=== PATIENT | male | born 1950 | race Caucasian/White ===

== ENCOUNTER 2022-06-08 05:23 | Observation (INO) ==
--- NOTE | 2022-05-22 13:50 | PAT Medication Instructions ---
Medication Instructions Date of Service May 22, 2022 Home Medications levothyroxine 25 mcg tablet (Euthyrox) 25 mcg PO QAM lisinopril 5 mg tablet 5 mg PO QAM metformin 500 mg tablet 1,000 mg PO BID omeprazole 40 mg capsule,delayed release 40 mg PO QAM rosuvastatin 20 mg tablet 20 mg PO HS sitagliptin 50 mg tablet (Januvia) 50 mg PO QAM DO NOT take the morning of surgery lisinopril 5 mg tablet 5 mg PO QAM metformin 500 mg tablet 1,000 mg PO BID sitagliptin 50 mg tablet (Januvia) 50 mg PO QAM Take morning of surgery With a small sip of water, OTHERWISE NOTHING TO EAT OR DRINK AFTER MIDNIGHT: levothyroxine 25 mcg tablet (Euthyrox) 25 mcg PO QAM omeprazole 40 mg capsule,delayed release 40 mg PO QAM Take evening before surgery metformin 500 mg tablet 1,000 mg PO BID rosuvastatin 20 mg tablet 20 mg PO HS Other Notes If you have any questions please call us at [phone] or [phone] or [phone] or [phone]
--- NOTE | 2022-05-24 09:05 | Anesthesiology Consultation ---
Date of Service May 24, 2022 Assessment & Plan (1) Encounter for pre-operative examination: - COVID screening: Per assessment on 05/24: No known COVID-19 positive contacts ( tested positive approximately 05/03- home test) or current COVID-19 related symptoms. Patient did not develop any symptoms during 's quarantine or since. Patient vaccinated. Travel screen negative. Given patient's household member having Covid 04/2022, preop Covid test done 05/26 at [facility]- negative. At surgeon discretion if further preop Covid testing being done. - Check BSG AM DOS - Outpatient joint assessment: Pt currently scheduled for inpatient pathway. If surgeon requests review for outpatient joint pathway, patient is acceptable candidate for outpatient joint program from anesthesia standpoint pending surgeo n's office assessment of pt motivation/ensuring strong home support/completion of same day joint program preop requirements. Chart Review Chart Review: Acceptable Risk for Surgery and Patient seen in Pre Admission Testing Teaching & Discussion Pre-Anesthesia Teaching/Discussion Notes: Instructed NPO after midnight before surgery,except medications with 15 cc of water. Medication instructions provided according to the PAT guidelines. History Surgery Operation Date: 06/08/22 07:00 Proposed Procedures p Left Total Hip Arthroplasty - Adriano Delgado MD Height/Weight Height: 5 ft 10 in Weight: 81.6 kg Allergies Allergy/AdvReac Type Severity Reaction Status Date / Time atorvastatin [From Lipitor] AdvReac Muscle Pain Verified 05/18/22 16:35 Medications Home Medications Medication Instructions Recorded Confirmed Last Taken levothyroxine 25 mcg tablet 25 mcg PO QAM 05/18/22 05/18/22 Unknown (Euthyrox) lisinopril 5 mg tablet 5 mg PO QAM 05/18/22 05/18/22 Unknown metformin 500 mg tablet 1,000 mg PO BID 05/18/22 05/18/22 Unknown omeprazole 40 mg capsule,delayed 40 mg PO QAM 05/18/22 05/18/22 Unknown release rosuvastatin 20 mg tablet 20 mg PO HS 05/18/22 05/18/22 Unknown sitagliptin 50 mg tablet (Januvia) 50 mg PO QAM 05/18/22 05/18/22 Unknown Past Medical History Medical History DM type 2 (diabetes mellitus, type 2) GERD (gastroesophageal reflux disease) History of prostate cancer Dx 2019 - s/p radiation History of rheumatic fever as a child HLD (hyperlipidemia) [place] (hard of hearing) HTN (hypertension) Hypothyroidism Osteoarthritis Exercise / Class Metabolic Activity II 4-5 Yardwork/Stairs/Walk up hill (one FS (no CP, no SOB)) Past Family History Family History Other No family history of adverse response to anesthesia Past Surgical History Surgical History History of cholecystectomy History of colonoscopy History of prostate biopsy History of shoulder surgery Rt History of tonsillectomy Past Anesthesia History No Hx of Anesthesia Complications and No Family Hx of Anesthesia Complications History of PONV No Hx of PONV and No Hx of Motion Sickness Social History Smoking Status: Never smoker Do You Dip or Chew Tobacco: No (quit years ago) Hx Alcohol Use: No Hx Substance Use: No substance use type: does not use Review of Systems Patient denies chest pain, shortness of breath, dyspnea on exertion, fever, chills, cough, wheezing, palpitations. Physical Exam Vital Signs VITALS BP 133/76 P 58 TEMP 98.4 SP02 98%RA RESP 16 PHYSICAL Full cervical extension range of motion. Full TMJ range of motion. TMD 3.5 finger breaths Mallampati Score 3 Dentition: bottom partial Lungs: clear throughout to auscultation Cardiac: regular rate and rhythm, no murmurs noted Spine: normal Carotid arteries: negative bruit Extremities: no edema Lab Results Anesthesia Preop Results Results Anesthesia Widget: WBC 5.73 K/ul (4.8-10.8) 05/24/22 Hgb 12.4 g/dl (14.0-18.0) L 05/24/22 Hct 37.3 % (40.1-51.0) L 05/24/22 Plt 245 K/uL (130-400) 05/24/22 Na 141 mmol/L (136-145) 05/24/22 K 4.2 mmol/L (3.5-5.1) 05/24/22 Cl 107 mmol/L (98-107) 05/24/22 CO2 29 mmol/L (21-32) 05/24/22 BUN 22 mg/dl (6-23) 05/24/22 Creat 1.20 mg/dl (0.6-1.4) 05/24/22 Glucose Level 147 mg/dl (70-99(Fasting)) H 05/24/22 PT 10.7 Seconds (9.0-12.0) 05/24/22 PTT 24.5 Seconds (21.0-31.0) 05/24/22 INR 1.0 (0.9-1.1) 05/24/22 Urine Color Yellow 05/24/22 Urine Appearance Clear (Clear) 05/24/22 Urine pH 5.0 (4.5-7.5) 05/24/22 Urine Specific [place] 1.024 (1.000-1.030) 05/24/22 Urine Protein Negative (Negative) 05/24/22 Urine Glucose (UA) 2+ (Negative) H 05/24/22 Urine Ketones Negative (Negative) 05/24/22 Urine Blood Negative (Negative) 05/24/22 Urine Nitrite Negative (Negative) 05/24/22 Urine Bilirubin Negative (Negative) 05/24/22 Urine Urobilinogen Negative (Negative) 05/24/22 Urine Leukocyte Esterase Negative (Negative) 05/24/22 Blood Type A Positive 05/24/22 Antibody Screen NEGATIVE 05/24/22 Testing Laboratory Results 04/24/22 HGBA1C 6.5% Electrocardiogram Date: 05/17/22 Findings: + SB @ (55) Chest X-Ray Date: 05/17/22 Findings: + NAD COVID-19 Risk Screen Screening Information COVID-19 Screen Date: 05/24/22 Exposure 21 Days Family/Household +COVID Last 21 Days: Yes Exposure 10 Days Any COVID Exposure Last 10 Days: No Symptoms Last 10 Days Experienced COVID Sx Last 10 Days: No + COVID 0-90 Days COVID + in Last 0-90 Days: No
--- NOTE | 2022-05-24 15:58 | History & Physical Report ---
Date of Service May 24, 2022 Assessment & Plan (1) Osteoarthritis of left hip: Plan: PRE-OP Diagnosis: Left hip osteoarthritis Planned Procedure: Left total hip arthroplasty Plan: Patient is scheduled to undergo this procedure at the [facility] with a 23-hour observation admission with Dr. Delgado on May. Risks and complications of the procedure such as: Infection, bleeding, pain, scarring, nerve blood vessel damage, weakness, wound problems, stiffness, incomplete relief of symptoms, hardware failure, hardware loosening, wear, fracture, tendon or ligament injury, dislocation, leg length inequality, blood clots, Embolism, heart attack, stroke and were explained to the patient at her visit today. Informed consent to perform the procedure was obtained. Patient also understands risks of proceeding with surgical intervention during the COVID-19 pandemic. Currently patient is asymptomatic. Patient has not been in contact with anyone positive for the virus so preoperative testing is not indicated. Patient has an appointment to meet with anesthesia later this morning and while there will obtain CBC with differential, complete metabolic panel, PT/INR, blood type and screen, urinalysis, urine cultu re and sensitivity, hemoglobin A1c and a nasal culture for MRSA. He has already met with his primary care provider Dr. Pryor and received clearance to proceed with surgery. His EKG and chest x-ray are both up-to-date. Patient states that he plans on doing in-home physical therapy for the first 1 to 2 weeks postoperatively with [facility]. Patient states that he will most likely elect to do outpatient physical therapy at [facility] physical therapy in [place]. Patient will need a walker, raised toilet seat, shower chair and a hip kit. During today's visit we reviewed the total hip packet as well as precautions. We discussed discharge planning from the hospital. I provided paperwork to obtain a handicap placard for their vehicle. We discussed lectures offered by [facility] in regards to joint replacement surgery via Zoom. I advised the patient that upon discharge from hospital we will prescribe a narcotic pain medication and anti-inflammatory. Patient will also be on an 81 mg aspirin twice daily for blood clot prevention. Patient will be scheduled for 2-week postoperative follow-up visit with myself on June 21 at 9:30 AM. At that visit we will Provide the patient with an order for outpatient physical therapy and rehab protocol. Patient verbalizes understanding of all information provided during today's visit. He thanks for the care that he received. If he has questions or concerns that should arise prior to his surgery, he will contact clinic. This chart was completed utilizing [employer] voice recognition software. Grammatical errors, random word insertions, pronoun errors, and in complete sentences are an occasional consequence of the system. Any questions or concerns about the content, text, or information contained within the body of this dictation should be addressed directly to the physician for clarification. History of Present Illness Chief Complaint: Chief Complaint: Left hip pain Primary Care Provider: Lance May DO History of Present Illness (including history relevant to procedure): This 71-year-old male presents the clinic today for his preoperative history and physical. Patient complains of approximately a 2 to 3-year history of persistent left hip pain that began insidiously. He states that recently he is requiring the use of a walking stick when he is outside ambulating. He notices that it is affecting his gait considerably. Patient states that the pain is localized in his groin and posterior lateral aspect of his hip. Patient states that he finds it very difficult to partake in activities that he enjoys especially hunting. He states that he initially discussed the surgery with Dr. Delgado back in October but was not able to undergo the procedure due to an elevated hemoglobin A1c that was greater than 10. He states that since that time he has been on a diet and saw his PCP who prescribed him metformin and Januvia. He is now down to 6. Review Of Systems: A 12 point review of systems is performed is unremarkable except for those things stated in the HPI and past medical history. Past Medical History: Problems: Disorder of thyroid Dry skin Loss of hearing Arthritis Irregular heart beat Prostate cancer Type 2 diabetes mellitus Hypertension History of renal calculi BPH Procedure History Procedure Procedure Date Comments Shoulder joint operations Unknown Allergies and Sensitivities: NKA Social history: Completely unremarkable Family history: Cancer, COPD, aneurysm, heart disease and diabetes Current Home Meds: (Last Updated 05/24 08:05) SITagliptin (Januvia 50 mg oral tablet) TAKE 1 TABLET BY MOUTH ONCE DAILY levothyroxine (Euthyrox 25 mcg (0.025 mg) oral tablet) TAKE 1 TABLET BY MOUTH ONCE DAILY ON AN EMPTY STOMACH lisinopril (lisinopril 5 mg oral tablet) TAKE 1 TABLET BY MOUTH ONCE DAILY metFORMIN (MetFORMIN (Eqv-Glucophage XR) 500 mg oral tablet, extended release) TAKE 4 TABLETS BY MOUTH ONCE DAILY omeprazole (omeprazole 40 mg oral delayed release capsule) 40 mg PO Daily rosuvastatin (rosuvastatin 20 mg oral tablet) 20 mg PO Daily Allergies Allergy/AdvReac Type Severity Reaction Status Date / Time atorvastatin [From Lipitor] AdvReac Muscle Pain Verified 05/18/22 16:35 Home Medications Medication Instructions Recorded Confirmed Type levothyroxine 25 mcg tablet 25 mcg PO QAM 05/18/22 05/18/22 History (Euthyrox) lisinopril 5 mg tablet 5 mg PO QAM 05/18/22 05/18/22 History metformin 500 mg tablet 1,000 mg PO BID 05/18/22 05/18/22 History omeprazole 40 mg capsule,delayed 40 mg PO QAM 05/18/22 05/18/22 History release rosuvastatin 20 mg tablet 20 mg PO HS 05/18/22 05/18/22 History sitagliptin 50 mg tablet (Januvia) 50 mg PO QAM 05/18/22 05/18/22 History Past Med/Surg History Medical History DM type 2 (diabetes mellitus, type 2) GERD (gastroesophageal reflux disease) History of prostate cancer Dx 2019 - s/p radiation History of rheumatic fever as a child HLD (hyperlipidemia) [place] (hard of hearing) HTN (hypertension) Hypothyroidism Osteoarthritis Surgical History History of cholecystectomy History of colonoscopy History of prostate biopsy History of shoulder surgery Rt History of tonsillectomy Family History Other No family history of adverse response to anesthesia Social History Smoking Status: Never smoker Second Hand Exposure: No; Hx Alcohol Use: No Hx Substance Use: No Preferred Language: [place] Citizen Communication Ability: Effective Rn Discharge Required: No Beliefs That Will Affect Care: None Current Living Situation: Spouse Feels Safe at Home: Yes Assistive Devices: Glasses Review of Systems All systems reviewed & are unremarkable except as noted in Subjective Physical Exam Physical Exam: Physical Exam: (relevant to the procedure, including heart and lung evaluation) General: Alert and oriented x3 appropriate grooming and hygiene Eyes: Pupils are equal and reactive to light with accommodation. Extraocular lids are intact Throat: Deferred due to COVID-19 precautions Cardiac: Regular rate with irregular rhythm with no murmurs or gallops appreciated Lungs: Clear to auscultation throughout with no wheezing, rales or rhonchi Abdomen: Nonobese, nondistended, nontender with NABS Extremities: Left hip: Passive flexion is limited to 115 degrees with referred pain to the groin. Internal rotation is limited to 5 degrees and external rotation to 30 degrees. Stinchfield test and straight leg raise test were positive. Logroll test is negative patient does have some referred pain to the groin area with active AB and Adduction of the lower extremity. Patient is neurovascularly intact in the left lower extremity but does walk with a slight antalgic gait. Neuro: Cranial nerves II through XII are intact no motor or sensory deficit Skin: Normal appearance no open skin areas or discharge Results & Data ([facility]) Diagnostic Findings Studies (relevant to the procedure): X-rays done recently at outside facility are reviewed. These show [id number] arthritis in the right hip with subchondral cyst formation and sclerosis and marginal osteophytes. Code Status & VTE Plan VTE Prophylaxis Plan VTE Prophylaxis will be ordered: Yes
[2022-06-08] MEDS ORDERED: TRANEXAMIC ACID 1,000 MG **IV Intra-op IV SCH (06:00)
[2022-06-08] MEDS ORDERED: ROPIVACAINE 0.5% HCL/PF 150 MG, BUPIVACAINE 0.75% MPF 20 ML, EPINEPHrine 0.15 MG, Ketor... INFIL SCH (06:00)
[2022-06-08] MEDS ORDERED: FAMOTIDINE 20 MG TAB PO SCH (06:00)
[2022-06-08] MEDS ORDERED: LR 500ML BOLUS, THEN 15ML/HR IV SCH (06:00)
[2022-06-08] MEDS ORDERED: ceFAZolin 2000MG 2,000 MG/15 ML SYR IV SCH (06:00)
[2022-06-08] MEDS ORDERED: Scopolamine 1 MG TDSY TD SCH (06:00)
[2022-06-08] MEDS ORDERED: traMADol HCL 50 MG TABLET PO SCH (06:00)
[2022-06-08] MEDS ORDERED: CeleBREX 200 MG CAP PO SCH (06:00)
[2022-06-08] MEDS ORDERED: TRANEXAMIC ACID 1,000 MG **IV Pre-op IV SCH (06:00)
[2022-06-08] MEDS: ACETAMINOPHEN 500 MG TAB PO SCH ×4 (06:22→22:30)
[2022-06-08] MEDS ORDERED: BUPIVACAINE 0.5 % 5 MG/1 ML PF 10ML VIAL ONE (06:30)
[2022-06-08] MEDS ORDERED: ORTHO JOINT ANESTHETIC ONE (06:32)
--- NOTE | 2022-06-08 06:44 | History & Physical Bridge Note ---
Date of Service June 08, 2022 History & Physical Bridge Note I have examined the patient, reviewed the History & Physical and in the interval since the performance of the History & Physical I have noted the following changes of clinical significance: no changes noted
[2022-06-08] MEDS ORDERED: PROPOFOL IV EMULSION 10 MG/ML 20 ML VIAL IV ONE (06:45)
[2022-06-08] MEDS ORDERED: MIDAZOLAM HCL 1 MG/ML 2ML VIAL ONE (06:45)
[2022-06-08] MEDS ORDERED: fentaNYL citrate 100 MCG/2 ML VIAL ONE (07:01)
[2022-06-08] MEDS ORDERED: HYDROmorphone INJ 2 MG/ML SYR/VIAL IV PRN (07:17)
[2022-06-08] MEDS ORDERED: fentaNYL citrate 100 MCG/2 ML VIAL IV PRN (07:17)
[2022-06-08] MEDS ORDERED: ePHEDrine sulfate 50 MG/ML AMP IV PRN (07:17)
[2022-06-08] MEDS ORDERED: ATROPINE SULFATE 0.1 MG/ML 10ML SYR IV PRN (07:17)
[2022-06-08] MEDS ORDERED: ONDANSETRON INJ 2 MG/ML 2 ML VIAL ONE (07:32)
[2022-06-08] MEDS ORDERED: ePHEDrine sulfate 50 MG/ML SYR ONE (07:43)
[2022-06-08] MEDS ORDERED: MAGNESIUM HYDROXIDE SUSP 30 ML UDC PO PRN (08:33)
[2022-06-08] MEDS ORDERED: oxyCODONE HCL IR 5 MG TAB (IMMEDIATE RELEASE) PO PRN (08:33)
[2022-06-08] MEDS ORDERED: ONDANSETRON INJ 2 MG/ML 2 ML VIAL IV PRN (08:33)
[2022-06-08] MEDS ORDERED: TAMSULOSIN HCL 0.4 MG CAP PO PRN (08:33)
[2022-06-08] MEDS ORDERED: NALOXONE HCL 0.4 MG/1 ML VIAL/CARP IV PRN (08:33)
[2022-06-08] MEDS ORDERED: ALUMINUM/MAGNESIUM SUSP 30 ML UDC PO PRN (08:33)
[2022-06-08] MEDS ORDERED: METOCLOPRAMIDE HCL INJ 5 MG/ML 2 ML VIAL IV PRN (08:33)
[2022-06-08] MEDS ORDERED: bisacodyL 10 MG SUPP PR PRN (08:33)
[2022-06-08] MEDS ORDERED: diphenhydrAMINE 50 MG/ML VIAL IV PRN (08:33)
--- NOTE | 2022-06-08 08:33 | Operative Report ---
Post Operative Report Pre & Post Diagnosis Operation Date: 06/08/22 07:00 Pre-Op Diagnosis: Left Hip Osteoarthritis Post-Op Diagnosis: Left Hip Osteoarthritis I identified the patient and participated in the time-out.: Yes Procedure Operation Date: 06/08/22 07:00 Actual Procedures p Left Total Hip Arthroplasty, Uncemented(Left) - Adriano Delgado MD Surgeon Adriano Delgado MD Command Post Craftsman Marlyn Reeves PASilas Estimated Blood Loss 100 Findings Consistent with Post-Op Diagnosis Specimens femoral head Description of Procedure I was present during then entire case assisting with positioning, prepping, draping, wound retraction, wound closure, dressing and abduction pillow placement. No fellow present. Please see Dr. Delgado procedure note for specifics of the case. I attest to the content of the Intraoperative Record and any orders documented therein. Any exceptions are noted below.
--- NOTE | 2022-06-08 08:35 | Operative Report ---
Post Operative Report Pre & Post Diagnosis Operation Date: 06/08/22 07:00 Pre-Op Diagnosis: Left Hip Osteoarthritis Post-Op Diagnosis: Left Hip Osteoarthritis I identified the patient and participated in the time-out.: Yes Procedure Operation Date: 06/08/22 07:00 Actual Procedures p Left Total Hip Arthroplasty, Uncemented(Left) - Adriano Delgado MD Surgeon Adriano Delgado MD Distribution Superintendent ROSALIO Reeves PA-C. No resident or fellow was available to assist. Estimated Blood Loss 100 Findings Consistent with Post-Op Diagnosis Fluids 700 cc Specimens Left femoral head Anesthesia Type Spinal MAC Complications none Disposition Disposition: Recovery Room Indications 71-year-old gentleman with left hip osteoarthritis refractory to conservative management. X-rays demonstrate [id number] disease. I had a long discussion with him about the risks and benefits of surgery, alternatives, and expected outcomes. After reviewing all these he elected to proceed with surgery. All questions were answered. Informed consent was signed. Description of Procedure Patient was identified in the preoperative holding area and the surgical site, left hip, was marked. A spinal anesthetic was placed, then the patient was brought back to the main operating room, placed in the operating table and moved into the lateral decubitus position. Axillary roll was placed. All bony prominences were padded. Perioperative antibiotics and tranexamic acid 1 gram IV were administered. Operative extremity was prepped and draped in the normal sterile fashion. Prior to incision a multidisciplinary timeout was called. All in the room were in agreement. We began by making an incision for a posterior approach to the hip. We dissected down through subcutaneous tissues to the level of the fascia. The fascia was incised in line with the incision. Charnley bow was placed. The trochanteric bursa was excised. The piriformis and short external rotators were dissected off the posterior aspect of the hip. A box cut was made in the capsule. The femoral head was dislocated. The femoral neck cut was made at our preoperative template. The acetabulum was then exposed. The labrum was sharply excised. Contents of the cotyloid fossa were removed with electrocautery. We then began reaming at a size 8 mm less than our preoperative template. We reamed up by [address] way up to a size 56 mm cup. This gave us good bleeding cancellus bone circumferentially. The acetabulum was then irrigated out and dried. The real [place] Gription cup was then impacted down into position with 45 degrees of lateral opening and 25 degrees of anteversion. A single cancellous bone screw was placed up into the ilium. Excellent fixation was obtained. A trial liner for a 36 mm femoral head was then placed. Next we turned our attention to the femur. The lateral neck was removed with a box osteotome. Intramedullary guide was used followed by the lateralizing reamer. We then reamed up to a size 4 Caswell stem. We then broached all the way up to a size 4. We began trialing with a high offset neck and a +5 head. Hip was reduced. Leg lengths were nearly symmetric. The hip was stable in extension and external rotation, and stable in the sleeper position. At 90 degrees of hip flexion the hip could be internally rotated 40 degrees before levering out of the cup. I wanted to get a little bit more stability with internal rotation, therefore the hip was dislocated and the acetabular trial was replaced with a +4, 10 degree face changing liner. Stability was rechecked. Leg length was symmetric the other side. No impingement in external rotation and extension. With the hip flexed to 90 degrees he now could internally rotate 55 degrees before levering out of the cup. I was very happy with the stability exam. Therefore, the femoral trial was removed, acetabulum was re-exposed, and the trial liner was removed. A +4 10 degree face changing Altrx polyethylene liner for a 36 mm femoral head was then impacted into the shell. The locking mechanism was checked to ensure that it had engaged which it had. The femur was re-exposed. The femoral canal was irrigated and dried. The real size 4 high offset Caswell femoral stem was opened up. This was impacted down into position. It sat at the same level as the femoral trial. Therefore the 36 mm ceramic femoral head with a +5 mm offset was opened up and gently impacted down onto the trunnion. The hip was atraumatically reduced. Another 1 gram of IV tranexamic acid was started prior to closure. The wound was irrigated out with sterile Betadine solution. The periarticular injection cocktail was then placed. The short external rotators, piriformis, and posterio r capsule were repaired through drill holes in the greater trochanter using #2 Vicryl. The fascia was run with a looped #1 PDS. The subcutaneous layer was closed with #1 PDS. The dermal layer was closed with 2-0 Vicryl. Zip line was used for the skin followed by a Silverlon dressing. A compressive dressing was then placed. The patient was then rolled supine. Leg lengths were rechecked and were symmetric. An abduction pillow was placed. Sedation was lifted and the patient was transferred to recovery room in stable condition. Summary of implants: Depuy Greensburg Gription Acetabular Shell Sector Cup, 56 mm outer diameter [place] Cancellous bone screw, 6.5 x 40 mm [place] +4, 10 degree face changing Altrx Polyethylene Acetabular Liner, Neutral, with a 36 mm inner diameter DePuy Caswell Femoral stem with Porocoat, 12/14 taper, size 4 high offset 36 mm ceramic femoral head with +5 offset Postoperative course: Patient will be admitted to the hospital from the recovery room. Patient will be weightbearing as tolerated with posterior hip precautions. Aspirin for DVT prophylaxis I attest to the content of the Intraoperative Record and any orders documented t herein. Any exceptions are noted below.
--- NOTE | 2022-06-08 09:06 | Anesthesiology Progress Note ---
Date of Service June 08, 2022 Anesthesia Post Procedure Vital Signs Vital Signs: Temp Pulse Pulse Resp BP Pulse Ox O2 Del Method 06/08/22 09:00 36.4 C L 48 L 15 109/66 96 Room Air 06/08/22 08:50 50 L 21 130/64 98 Room Air 06/08/22 08:40 58 L 18 105/57 L 99 Oxymask 06/08/22 08:33 36.3 C L 54 L 17 109/57 L 97 Oxymask 06/08/22 05:50 36.7 C 63 20 157/93 H 99 Room Air O2 Flow Rate 06/08/22 09:00 06/08/22 08:50 06/08/22 08:40 4 06/08/22 08:33 4 06/08/22 05:50 Pain Intensity Left Hip: Pain Intensity: 6 Transfer of Care Handoff Completed per policy Notes Mental Status: alert / awake / arousable and participated in evaluation Patient Amnestic to Procedure: Yes Nausea / Vomiting: adequately controlled Pain: adequately controlled Airway Patency, RR, SpO2: stable & adequate BP & HR: stable & adequate and see Notes below (bradycardia (was slighltly bradycardic prior)) Hydration State: stable & adequate Neuraxial Anesthesia: was administered and sensory block is resolving Anesthetic Complications: no major complications apparent and Pt Satisfied with anesthetic care
--- NOTE | 2022-06-08 11:49 | XRay Report ---
AP PELVIS History: Left total hip arthroplasty. Degenerative arthritis. Postop. COMPARISON: 05/24/2022. FINDINGS: The patient is status post a left total hip arthroplasty. The hardware is intact. No fractu re or dislocation. IMPRESSION: Left total hip arthroplasty. No evidence for hardware complication. ACT 112: Negative or not required by law. Electronically signed by: Royal Garcia M.D. 06/08/2022 11:48 AM
[2022-06-08] MEDS: SODIUM CHLORIDE 0.9% 1000ML 1,000 ML IV SCH ×2 (12:08→19:58)
[2022-06-08] MEDS: KETOROLAC TROMETHAMINE 15 MG/ML VIAL IV SCH ×3 (12:10→22:30)
[2022-06-08] MEDS: lisinopril 5 MG TAB PO SCH (12:13)
[2022-06-08] MEDS: metFORMIN HCL 500 MG TAB PO SCH ×2 (12:13→17:26)
[2022-06-08] MEDS: SITagliptin PHOSPHATE 25 MG TAB PO SCH (12:14)
[2022-06-08] MEDS: MULTIVITAMIN TAB PO SCH (13:54)
[2022-06-08] MEDS: ASPIRIN 81 MG ECTAB PO SCH ×2 (13:54→20:42)
[2022-06-08] MEDS: PANTOprazole 40 MG TAB PO SCH (13:54)
[2022-06-08] MEDS: DOCUSATE SODIUM 100 MG CAP PO SCH ×2 (13:55→20:43)
[2022-06-08] MEDS ORDERED: TRANEXAMIC ACID / 0.7% NACL 1,000 MG/100 ML BAG IV SCH (14:45)
[2022-06-08] MEDS: Scopolamine CHECK PATCH PLACEMENT SCH ×2 (16:32→23:06)
[2022-06-08] MEDS: ceFAZolin 2000MG 2,000 MG/15 ML SYR IV SCH ×2 (16:40→22:30)
[2022-06-08] MEDS ORDERED: ROSUVASTATIN CALCIUM 20 MG TAB PO SCH (21:00)
[2022-06-08] MEDS ORDERED: SENNA 8.6 MG TAB PO SCH (21:00)
[2022-06-09] MEDS: SODIUM CHLORIDE 0.9% 1000ML 1,000 ML IV SCH (03:32)
[2022-06-09] MEDS: KETOROLAC TROMETHAMINE 15 MG/ML VIAL IV SCH (03:35)
[2022-06-09] MEDS: ACETAMINOPHEN 500 MG TAB PO SCH (05:34)
[2022-06-09] MEDS ORDERED: LEVOTHYROXINE SODIUM 25 MCG TABLET PO SCH (06:30)
[2022-06-09] MEDS: lisinopril 5 MG TAB PO SCH (08:19)
[2022-06-09] MEDS: DOCUSATE SODIUM 100 MG CAP PO SCH (08:19)
[2022-06-09] MEDS: SITagliptin PHOSPHATE 25 MG TAB PO SCH (08:19)
[2022-06-09] MEDS: MULTIVITAMIN TAB PO SCH (08:19)
[2022-06-09] MEDS: PANTOprazole 40 MG TAB PO SCH (08:19)
[2022-06-09] MEDS: metFORMIN HCL 500 MG TAB PO SCH (08:20)
[2022-06-09] MEDS: ASPIRIN 81 MG ECTAB PO SCH (08:20)
[2022-06-09] MEDS: Scopolamine CHECK PATCH PLACEMENT SCH (08:20)
[2022-06-09 08:29] LABS: Basophils # (auto) 0.06 K/uL (0-0.2); Basophils % (auto) 0.5 %; Eosinophils # (auto) 0.04 K/uL (0-0.50); Eosinophils % (auto) 0.3 %; Hematocrit (blood only) 33.9 % (40.1-51.0); Hemoglobin 11.5 g/dl (14.0-18.0); Immature Granulocytes # (auto) 0.04 K/uL (0.00-0.02); Immature Granulocytes % (auto) 0.3 %; Lymphocytes # (auto) 0.87 K/uL (1.2-3.4); Lymphocytes % (auto) 7.3 %; Mean Corpuscular Hemoglobin 29.4 pg (25.0-34.0); Mean Corpuscular Hgb Conc 33.9 g/dL (32.0-36.0); Mean Corpuscular Volume 86.7 fL (80.0-100.0); Monocytes # (auto) 1.03 K/uL (0.24-0.82); Monocytes % (auto) 8.6 %; Neutrophils # (auto) 9.87 K/uL (1.4-6.5); Platelet Count 214 K/uL (130-400); RDW Coefficient of Variation 13.2 % (11.5-14.5); RDW Standard Deviation 41.1 fL (36.4-46.3); Red Blood Count 3.91 M/uL (4.63-6.08); White Blood Count 11.91 K/ul (4.8-10.8)
[2022-06-09 08:55] LABS: BUN Creatinine Ratio 23.4 (10-20); Calcium 9.2 mg/dl (8.5-10.1); Creatinine Clr Calc Pharmacy 45.4 ml/min; Est GFR (African American) 51.8 ml/min; Est GFR (Non-African American) 44.7 ml/min; Potassium 4.6 mmol/L (3.5-5.1)
[2022-06-09] MEDS ORDERED: CeleBREX 200 MG CAP PO SCH (09:00)
--- NOTE | 2022-06-09 09:54 | Orthopedic Progress Note ---
Date of Service June 09, 2022 Assessment & Plan (1) S/P total left hip arthroplasty: Plan: PT/OT Total hip precautions Weightbearing as tolerated with walker assistance Pain controlled p.o. meds Ice with easy wrap DVT prophylaxis with aspirin and JONAH stockings Keep Silverlon dressing in place Abduction pillow use x6 weeks postoperatively Plan is to discharge home today with in-home physical therapy for the first 2 weeks Follow-up at [facility] orthopedics as previously scheduled With questions contact our clinic at [phone] Admission and Anticipated Discharge Date Admission Date: June 08, 2022 Subjective This 71-year-old male is day 1 status post left total hip arthroplasty. Patient states he is doing very well. He states he is ambulating around his room without difficulty. He states he has no hip pain whatsoever. He is very anxious to be discharged home hopefully later today. Currently he denies any signs or symptoms of infection. He also denies chest pain, shortness of breath, fever, chills, sweats or numbness or tingling in his left lower extremity. Review of Systems Review of Systems: All systems reviewed & are unremarkable except as noted in Subjective Physical Exam Physical Exam: Left hip: Quad strength is 4 out of 5. Patient is able to easily perform a straight leg raise test. He is able to actively dorsi and plantarflex foot without issue. I passive hip flexion to 90 degrees causes no pain. He does experience a slight twinge of pain with light passive internal or external hip rotation. Patient is neurovascularly intact in the left lower extremity. Results & Data ([facility]) Vital Signs (Past 12 Hours) Vital Signs Temp Pulse Resp BP Pulse Ox O2 Del Method 06/09/22 07:16 36.4 C L 54 L 12 122/70 98 Room Air 06/09/22 03:25 36.5 C 60 18 123/69 96 Room Air 06/08/22 23:33 36.4 C L 60 16 115/64 96 Room Air Diagnostic Findings Laboratory Results WBC 11.91 K/ul (4.8-10.8) H 06/09/22 08:13 RBC 3.91 M/uL (4.63-6.08) L 06/09/22 08:13 Hgb 11.5 g/dl (14.0-18.0) L 06/09/22 08:13 Hct 33.9 % (40.1-51.0) L 06/09/22 08:13 MCV 86.7 fL (80.0-100.0) 06/09/22 08:13 MCH 29.4 pg (25.0-34.0) 06/09/22 08:13 MCHC 33.9 g/dL (32.0-36.0) 06/09/22 08:13 RDW Std Deviation 41.1 fL (36.4-46.3) 06/09/22 08:13 RDW Coeff of Lauren 13.2 % (11.5-14.5) 06/09/22 08:13 Plt Count 214 K/uL (130-400) 06/09/22 08:13 MPV 10.0 fL (9.4-12.4) 06/09/22 08:13 Immature Gran % (Auto) 0.3 % 06/09/22 08:13 Neut % (Auto) 83.0 % 06/09/22 08:13 Lymph % (Auto) 7.3 % 06/09/22 08:13 [place] % (Auto) 8.6 % 06/09/22 08:13 Eos % (Auto) 0.3 % 06/09/22 08:13 Baso % (Auto) 0.5 % 06/09/22 08:13 Neut # (Auto) 9.87 K/uL (1.4-6.5) H 06/09/22 08:13 Lymph # (Auto) 0.87 K/uL (1.2-3.4) L 06/09/22 08:13 [place] # (Auto) 1.03 K/uL (0.24-0.82) H 06/09/22 08:13 Eos # (Auto) 0.04 K/uL (0-0.50) 06/09/22 08:13 Baso # (Auto) 0.06 K/uL (0-0.2) 06/09/22 08:13 Immature Gran # (Auto) 0.04 K/uL (0.00-0.02) H 06/09/22 08:13 Sodium 135 mmol/L (136-145) L 06/09/22 08:13 Potassium 4.6 mmol/L (3.5-5.1) 06/09/22 08:13 Chloride 103 mmol/L (98-107) 06/09/22 08:13 Carbon Dioxide 25 mmol/L (21-32) 06/09/22 08:13 Anion Gap 7 (3-11) 06/09/22 08:13 BUN 36 mg/dl (6-23) H 06/09/22 08:13 Creatinine 1.54 mg/dl (0.6-1.4) H 06/09/22 08:13 Est Cr Clr Drug Dosing 45.4 ml/min 06/09/22 08:13 Est GFR ( Amer) 51.8 ml/min 06/09/22 08:13 Est GFR (Non-Af Amer) 44.7 ml/min 06/09/22 08:13 BUN/Creatinine Ratio 23.4 (10-20) H 06/09/22 08:13 Glucose 122 mg/dl (70-99(Fasting)) H 06/09/22 08:13 POC Glucose 150 mg/dl (70-99) H 06/08/22 17:23 Calcium 9.2 mg/dl (8.5-10.1) 06/09/22 08:13 SARS-CoV-2, RNA, NAAT NEGATIVE (NEGATIVE) 06/08/22 Unknown Impressions Pelvis X-Ray 06/08/22 08:33 AP PELVIS History: Left total hip arthroplasty. Degenerative arthritis. Postop. COMPARISON: 05/24/2022. FINDINGS: The patient is status post a left total hip arthroplasty. The hardware is intact. No fracture or dislocation. IMPRESSION: Left total hip arthroplasty. No evidence for hardware complication. ACT 112: Negative or not required by law. Electronically signed by: Royal Garcia M.D. 06/08/2022 11:48 AM
--- NOTE | 2022-06-09 10:01 | Discharge Summary ---
Date of Service June 09, 2022 Admission HPI Per Admitting Provider History of Present Illness (including history relevant to procedure): This 71-year-old male presents the clinic today for his preoperative history and physical. Patient complains of approximately a 2 to 3-year history of persistent left hip pain that began insidiously. He states that recently he is requiring the use of a walking stick when he is outside ambulating. He notices that it is affecting his gait considerably. Patient states that the pain is localized in his groin and posterior lateral aspect of his hip. Patient states that he finds it very difficult to partake in activities that he enjoys espec ia[place] hunting. He states that he initially discussed the surgery with Dr. Delgado back in October but was not able to undergo the procedure due to an elevated hemoglobin A1c that was greater than 10. He states that since that time he has been on a diet and saw his PCP who prescribed him metformin and Januvia. He is now down to 6. Review Of Systems: A 12 point review of systems is performed is unremarkable except for those things stated in the HPI and past medical history. Past Medical History: Problems: Disorder of thyroid Dry skin Loss of hearing Arthritis Irregular heart beat Prostate cancer Type 2 diabetes mellitus Hypertension History of renal calculi BPH Procedure History Procedure Procedure Date Comments Shoulder joint operations Unknown Allergies and Sensitivities: NKA Social history: Completely unremarkable Family history: Cancer, COPD, aneurysm, heart disease and diabetes Current Home Meds: (Last Updated 05/24 08:05) SITagliptin (Januvia 50 mg oral tablet) TAKE 1 TABLET BY MOUTH ONCE DAILY levothyroxine (Euthyrox 25 mcg (0.025 mg) oral tablet) TAKE 1 TABLET BY MOUTH ONCE DAILY ON AN EMPTY STOMACH lisinopril (lisinopril 5 mg oral tablet) TAKE 1 TABLET BY MOUTH ONCE DAILY metFORMIN (MetFORMIN (Eqv-Glucophage XR) 500 mg oral tablet, extended release) TAKE 4 TABLETS BY MOUTH ONCE DAILY omeprazole (omeprazole 40 mg oral delayed release capsule) 40 mg PO Daily rosuvastatin (rosuvastatin 20 mg oral tablet) 20 mg PO Daily Admission Exam Per Admitting Provider Physical Exam: (relevant to the procedure, including heart and lung evaluation) General: Alert and oriented x3 appropriate grooming and hygiene Eyes: Pupils are equal and reactive to light with accommodation. Extraocular lids are intact Throat: Deferred due to COVID-19 precautions Cardiac: Regular rate with irregular rhythm with no murmurs or gallops appreciated Lungs: Clear to auscultation throughout with no wheezing, rales or rhonchi Abdomen: Nonobese, nondistended, nontender with NABS Extremities: Left hip: Passive flexion is limited to 115 degrees with referred pain to the groin. Internal rotation is limited to 5 degrees and external rotation to 30 degrees. Stinchfield test and straight leg raise test were positive. Logroll test is negative patient does have some referred pain to the groin area with active AB and Adduction of the lower extremity. Patient is neurovascularly intact in the left lower extremity but does walk with a slight antalgic gait. Neuro: Cranial nerves II through XII are intact no motor or sensory deficit Skin: Normal appearance no open skin areas or discharge Principal Diagnosis Left hip osteoarthritis Discharge Exam Left hip: Quad strength is 4 out of 5. Patient is able to easily perform a straight leg raise test. He is able to actively dorsi and plantarflex foot without issue. I passive hip flexion to 90 degrees causes no pain. He does experience a slight twinge of pain with light passive internal or external hip rotation. Patient is neurovascularly intact in the left lower extremity. Discharge Data Allergies Allergy/AdvReac Type Severity Reaction Status Date / Time atorvastatin [From Lipitor] AdvReac Intermediate Muscle Pain Verified 06/08/22 05:44 Procedures Performed Operation Date: 06/08/22 07:00 Actual Procedures p Left Total Hip Arthroplasty, Uncemented(Left) - Adriano Delgado MD Hospital Course (1) S/P total left hip arthroplasty: Patient had an uneventful overnight stay following left total hip arthroplasty. He is doing very well this morning. He is anxious to be discharged home later today. His plan is to begin in-[facility] physical therapy with [facility]. Patient is very pleased with the results of the surgery. PT/OT Total hip precautions Weightbearing as tolerated with walker assistance Pain controlled p.o. meds Ice with easy wrap DVT prophylaxis with aspirin and JONAH stockings Keep Silverlon dressing in place Abduction pillow use x6 weeks postoperatively Plan is to discharge home today with in-home physical therapy for the first 2 weeks Follow-up at [facility] orthopedics as previously scheduled With questions contact our clinic at [phone] Total Time Total Time Spent Total Time Spent (In Minutes): 15 minutes Discharge Plan Discharge Items Patient Disposition: Home - Home Health Services Reason For Visit: Left Hip Osteoarthritis Discharge Diagnosis: Left Hip Osteoarthritis Activity: As commented below Lifting: None Bathing: Keep incision dry Bathing Comment: May shower tomorrow Sexual Activity: Wait until after follow-up appointment Exercise/Sports: Wait until after follow-up appointment Driving/Machine Use: No driving until cleared by mis specialist Weightbearing: Left weightbearing Weightbearing Comment: as tolerated with walker assistance Non-emergency contact: Surgeon Call non-emergency contact if: you have any medication questions, your pain is not controlled, your temperature is above 101.5, your wound has increased drainage and your wound pain has increased Follow-up/Referrals: Lance May DO [Primary Care Provider] - Diet: Regular Addtl Attending Provider Instructions: Post-operative Instructions Dear Patient and Family/Friends, Before you are discharged from the hospital, it is important to know what to expect when you get home after surgery. To that end, we have created this sheet of discharge instructions which covers many commonly asked questions. Make sure you go through this sheet in its entirety with your nurse before you are discharged. Please note that we will go over the specifics of your surgery and recovery when you return for your first post-operative visit. Sincerely, Dr. Delgado Medications 1. Oxycodone 5 mg: take 1-2 tabs every 4-6 hours as needed for pain control. A prescription will be sent to your pharmacy for this medication. 2. Diclofenac Sodium 75 mg: take 1 tab twice daily for 30 days post operatively. This will also be sent to your pharmacy with 1 refill. 3. Aspirin 81 mg: take 1 tab twice daily for 30 days post operatively for blood clot prevention. Please purchase. 4. Extra Strength Tylenol 500 mg: take 2 tabs every 6-8 hours as needed for additional pain relief. Please purchase. Pain Expect to be in a fair amount of pain after surgery. Remember, our goal is not to eliminate your pain, but to make it tolerable. It is a good idea to stay ahead of your pain by taking the medications you were prescribed once you get home. Typically, the pain starts improving 3-7 days after surgery. You should start weaning off the narcotic pain medication (oxycodone, hydrocodone, hydromorphone, morphine) as soon as your pain improves. Please call our office if your pain is not adequately controlled. Ice Ice your operative site at least 5 times a day for 15-30 minutes at a time. Make sure you have a thin cloth between the ice or cooling unit and your skin to prevent fox bite. This is especially important if you received a nerve block. Continue icing your operative site for the first 5-7 days after surgery, then as needed. Diet/Nausea/Vomiting Start by drinking clear liquids and eating crackers. If you can tolerate this, then you may resume your normal diet. If you feel nauseated or vomit, take Zofran/ondansetron (if prescribed). Please call our office if you have intractable nausea or vomiting, or, if after hours, you may go to the Emergency Room for help. Constipation Constipation is a common side effect of narcotic pain medication. If you have n ot had a bowel movement within 2 days after surgery, we recommend purchasing an over the counter laxative such as Milk of Magnesia, Dulcolax, or Miralax from a local pharmacy, and taking it as instructed. Call our clinic if any questions. Nerve block The anesthesia team sometimes places a nerve block to help with post-operative pain control. This results in significant numbness and inability to move the extremity. The nerve block usually wears off in 8-12 hours, but sometimes can last up to 24 hours. Please call our office if you are still unable to move your extremity after 24 hours, unless you received a pain pump to take home. Nerve blocks typically wear off quickly, so start taking pain medication as soon as you start feeling soreness near your surgical site. Weight bearing and Range of Motion. Do not bear any weight through your operative extremity immediately after surgery. If you had upper extremity surgery, do not lift anything with that arm. If you are in a knee brace, keep it locked in place until your follow-up. We will discuss your weight bearing, range of motion, and lifting restrictions in detail at your first post-operative appointment. Continuous Passive Motion (CPM) Machine If you were prescribed a CPM machine, it will start after your first post- operative appointment, at which time we will give you instructions on the range of motion settings and duration of treatment Physical therapy You will be given a prescription for physical therapy or occupational therapy at your first post-operative appointment. Typically, patients start therapy within 1 week of surgery Wound care and showering We will inspect your wound at your first post-operative visit, and may do a dressing change at that time. Most patients will be in a water-proof dressing that is removed 14 days after surgery. It is normal to see some dried blood on the dressing. Do not remove your dressing, paper strips or sutures yourself unless you are given permission. Showering is allowed the day after surgery. Do not scrub or remove any dressings. The wound should not be submerged underwater (i.e. in a bathtub or pool) until 4 weeks after surgery JONAH stockings If you were given white stockings, these are to be worn at all times except to shower (on both legs) for the first 2 weeks after surgery. Driving You may not drive while taking narcotic pain medication or while in a cast, splint, sling or brace. You, the patient, need to make the final determination about when you are safe to drive, however, the earliest you may consider driving after surgery is below: Hand/Wrist/Elbow Surgery: 3 days Shoulder Surgery: 2 weeks Hip,/Knee/Ankle Surgery: 4 weeks Fracture repair: 6 weeks Return to Work Your return to work depends on what surgery was done and what type of work you do. Please bring any paperwork your employer needs completed to your first post-operative visit. Also, bring a description of your job duties, as this helps us to understand what risks you may face at work. Travel Avoid long distance travel (greater than 1 hour) in airplanes and cars for the first 6 weeks after surgery. If you must travel, you need to have a Doppler ultrasound done before you travel to rule out a blood clot in your legs. Follow-up You should have a follow-up appointment already scheduled 1-2 days after surgery. If not, please contact our office to make this appointment before you leave the hospital. When to call the office It is normal to have swelling and bruising in the limb that was operated on. This will improve with time. It is also normal to have fevers for the first 2 days after surgery. Reasons you should call your doctor include: Uncontrolled pain; Nausea, vomiting, or constipation that does not improve with medication; Fevers over 101.5, chills, sweats; Drainage or bleeding from the wound; Foul odor; Spreading areas of redness; Any other concerns Pending Studies at Discharge: No Stand-Alone Forms: My [facility] Medications and DC Order Prescriptions: New oxycodone 5 mg tablet 5 mg PO Q4H MDD Ongoing therapy Qty: 28 0RF diclofenac sodium 75 mg tablet,delayed release (DR/EC) 75 mg PO BID 30 Days Qty: 60 1RF Continued metformin 500 mg Tablet 1,000 mg PO BID omeprazole 40 mg Capsule,Delayed Release(Dr/Ec) 40 mg PO QAM levothyroxine [Euthyrox] 25 mcg Tablet 25 mcg PO QAM lisinopril [Zestril] 5 mg Tablet 5 mg PO QAM rosuvastatin [Crestor] 20 mg Tablet 20 mg PO HS Januvia 50 mg Tablet 50 mg PO QAM Discharge Orders: Discharge Order (Routine); Ordered 06/09/22 Ordered By: Haja Reeves Admission Data Admit Date/Time: 06/08/22 08:33 Attending Provider: Adriano Delgado Admit Provider: Adriano Delgado Primary Care Provider: Lance May Other Providers: [facility]
== END 2022-06-09 12:47 | disposition home health service (06) ==
LOC: ASU 05:23 → 3E 05:23

== ENCOUNTER 2022-06-28 13:10 | Inpatient (IN) ==
[~2022-06-28 13:10] MED LIST: ceFAZolin 2000MG 2,000 MG/15 ML SYR IV SCH
--- NOTE | 2022-06-28 13:14 | History & Physical Report ---
Date of Service June 28, 2022 Assessment & Plan (1) Infection of prosthetic total hip joint: Plan: PRE-OP Diagnosis: Left hip hematoma/infected joint status post total hip arthroplasty Planned Procedure: Left revision total hip arthroplasty versus irrigation and debridement Plan: Patient is scheduled to undergo this procedure at the [facility] with a direct admission our clinic. Dr. Delgado will perform this procedure this afternoon. Risks and complications of the procedure such as: Infection, bleeding, pain, scarring, nerve blood vessel damage, weakness, wound problems, stiffness, incomplete relief of symptoms, hardware failure, h ardware loosening, wear, fracture, tendon or ligament injury, dislocation, leg length inequality, blood clots, Embolism, heart attack, stroke and were explained to the patient at her visit today. Informed consent to perform the procedure was obtained. Patient also understands risks of proceeding with surgical intervention during the COVID-19 pandemic. Currently patient is asymptomatic. Patient has not been in contact with anyone positive for the virus so preoperative testing is not indicated. Orders for a CBC with differential, complete metabolic panel, CRP and a sed rate are placed into the [facility] system. We will obtain these prior to proceeding the operating room. His EKG and chest x-ray are both up-to-date. Patient will most likely be admitted for a few days because we will obtain cultures from the hip once the joint is open. This will determine which antibiotics we will send him home on. Patient verbalizes understanding of all information provided during today's visit. He thanks for the care that he received. If he has questions or concerns that should arise prior to his surgery, they will be answered by Dr. Delgado later this afternoon. This chart was completed utilizing 5 examples voice recognition software. Grammatical errors, random word insertions, pronoun errors, and in complete sentences are an occasional consequence of the system. Any questions or concerns about the content, text, or information contained within the body of this dictation should be addressed directly to the physician for clarification. History of Present Illness Chief Complaint: Chief Complaint: Left hip hematoma with drainage Primary Care Provider: Lance May DO History of Present Illness (including history relevant to procedure): This 71-year-old male presents the clinic today for an evaluation of drainage from the distalmost aspect of his surgical incision site of the left hip. Patient is a little over 2 weeks status post total hip arthroplasty. He states that last night he noticed some slight seepage from the incision and had fever and chills. He states that just before coming into the clinic today for evaluation a large amount of fluid drained from the distal aspect of the incision. He states that he felt immediate relief of the pressure that he had his periods. He states that today he has no symptoms like he had yesterday. Patient was evaluated by Dr. Delgado we have decided to take him to the operating room later today for the above stated procedure. Review Of Systems: A 12 point review of systems is performed is unremarkable except for those things stated in the HPI past medical history. Past Medical History: Problems: Disorder of thyroid Dry skin Loss of hearing Arthritis Irregular heart beat Cancer Type 2 diabetes mellitus Hypertension Procedure History Procedure Procedure Date Comments Shoulder joint operations Unknown Allergies and Sensitivities: NKA Current Home Meds: (Last Updated 06/28 11:32) SITagliptin (Januvia 50 mg oral tablet) TAKE 1 TABLET BY MOUTH ONCE DAILY levothyroxine (Euthyrox 25 mcg (0.025 mg) oral tablet) TAKE 1 TABLET BY MOUTH ONCE DAILY ON AN EMPTY STOMACH lisinopril (lisinopril 5 mg oral tablet) TAKE 1 TABLET BY MOUTH ONCE DAILY metFORMIN (MetFORMIN (Eqv-Glucophage XR) 500 mg oral tablet, extended release) TAKE 4 TABLETS BY MOUTH ONCE DAILY omeprazole (omeprazole 40 mg oral delayed release capsule) 40 mg PO Daily rosuvastatin (rosuvastatin 20 mg oral tablet) 20 mg PO Daily Allergies Allergy/AdvReac Type Severity Reaction Status Date / Time atorvastatin [From Lipitor] AdvReac Intermediate Muscle Pain Verified 06/08/22 05:44 Home Medications Medication Instructions Recorded Confirmed Type levothyroxine 25 mcg tablet 25 mcg PO QAM 05/18/22 06/08/22 History (Euthyrox) lisinopril 5 mg tablet (Zestril) 5 mg PO QAM 05/18/22 06/08/22 History metformin 500 mg tablet 1,000 mg PO BID 05/18/22 06/08/22 History omeprazole 40 mg capsule,delayed 40 mg PO QAM 05/18/22 06/08/22 History release rosuvastatin 20 mg tablet (Crestor) 20 mg PO HS 05/18/22 06/08/22 History sitagliptin phosphate 50 mg tablet 50 mg PO QAM 05/18/22 06/08/22 History (Kevuvia) diclofenac sodium 75 mg 75 mg PO BID post operative 06/09/22 Rx tablet,delayed release inflammation relief 30 days #60 tabs oxycodone 5 mg tablet 5 mg PO Q4H Post op pain control 06/09/22 Rx #28 tabs Past Med/Surg History Medical History DM type 2 (diabetes mellitus, type 2) GERD (gastroesophageal reflux disease) History of prostate cancer Dx 2019 - s/p radiation History of rheumatic fever as a child HLD (hyperlipidemia) [place] (hard of hearing) HTN (hypertension) Hypothyroidism Osteoarthritis Surgical History History of cholecystectomy History of colonoscopy History of prostate biopsy History of shoulder surgery Rt History of tonsillectomy Family History Other No family history of adverse response to anesthesia Social History Smoking Status: Never smoker Second Hand Exposure: No; Hx Alcohol Use: No Hx Substance Use: No Preferred Language: Spanish Communication Ability: Effective Motor Vehicle Or Caravan Salesperson Required: No Beliefs That Will Affect Care: None Current Living Situation: Spouse Feels Safe at Home: Yes Assistive Devices: Walker Review of Systems All systems reviewed & are unremarkable except as noted in Subjective Physical Exam Physical Exam: Physical Exam: (relevant to the procedure, including heart and lung evaluation) General: Alert and oriented x3 appropriate grooming and hygiene Eyes: Pupils are equal and reactive to light with accommodation. Extraocular lids are intact Throat: Deferred due to COVID-19 precautions Cardiac: Regular rate with irregular rhythm with no murmurs or gallops appreciated Lungs: Clear to auscultation throughout with no wheezing, rales or rhonchi Abdomen: Nonobese, nondistended, nontender with NABS Extremities: Left hip: Patient has no pain with passive flexion to 90 degrees. There is no pain with light passive internal or external hip rotation. There is a small opening to the distalmost aspect of the incision site but no drainage with palpation however patient does have a moderate sized hematoma just posterior to the mid incision site that is fluctuant. There is no active drainage. There is no ecchymosis or warmth. Patient is neurovascularly intact in the left lower extremity but does walk with a slight antalgic gait. Neuro: Cranial nerves II through XII are intact no motor or sensory deficit Skin: Normal appearance no open skin areas or discharge
[2022-06-28] MEDS ORDERED: ROPIVACAINE 0.5% HCL/PF 150 MG, BUPIVACAINE 0.75% MPF 20 ML, EPINEPHrine 0.15 MG, Ketor... INFIL SCH (13:15)
[2022-06-28] MEDS ORDERED: ONDANSETRON INJ 2 MG/ML 2 ML VIAL IV PRN ×3 (13:43→18:07)
[2022-06-28] MEDS ORDERED: SODIUM CHLORIDE 0.9% 1000ML 1,000 ML IV SCH ×3 (13:45→18:15)
[2022-06-28 14:21] LABS: Hematocrit (blood only) 32.8 % (40.1-51.0); Hemoglobin 10.9 g/dl (14.0-18.0); Mean Corpuscular Hemoglobin 29.2 pg (25.0-34.0); Mean Corpuscular Hgb Conc 33.2 g/dL (32.0-36.0); Mean Corpuscular Volume 87.9 fL (80.0-100.0); Mean Platelet Volume 9.8 fL (9.4-12.4); Platelet Count 265 K/uL (130-400); RDW Coefficient of Variation 13.5 % (11.5-14.5); RDW Standard Deviation 43.3 fL (36.4-46.3); Red Blood Count 3.73 M/uL (4.63-6.08); White Blood Count 12.01 K/ul (4.8-10.8)
[2022-06-28 14:43] LABS: Albumin Globulin Ratio 1.4 (0.9-2); Albumin Level 3.8 gm/dl (3.4-5.0); BUN Creatinine Ratio 17.3 (10-20); Bilirubin,Total 0.7 mg/dl (0.2-1.0); Calcium 9.4 mg/dl (8.5-10.1); Creatinine Clr Calc Pharmacy 26.9 ml/min; Est GFR (African American) 27.5 ml/min; Est GFR (Non-African American) 23.7 ml/min; Globulin 2.8 gm/dl (2.5-4.0); Potassium 4.1 mmol/L (3.5-5.1); Total Protein 6.6 gm/dl (6.0-8.3)
[2022-06-28] MEDS ORDERED: MIDAZOLAM HCL 1 MG/ML 2ML VIAL ONE (14:43)
[2022-06-28] MEDS ORDERED: LIDOCAINE 2% 20 MG/ML 5 ML SYR IV ONE (14:43)
[2022-06-28] MEDS ORDERED: ROCURONIUM BROMIDE 10 MG/ML 5 ML VIAL IV ONE ×2 (14:43→16:55)
[2022-06-28] MEDS ORDERED: PROPOFOL IV EMULSION 10 MG/ML 20 ML VIAL IV ONE (14:43)
[2022-06-28] MEDS ORDERED: fentaNYL citrate 100 MCG/2 ML VIAL ONE ×2 (14:44→16:34)
[2022-06-28 14:45] LABS: Basophils # (auto) 0.06 K/uL (0-0.2); Basophils % (auto) 0.5 %; Echinocytes 2+; Eosinophils # (auto) 0.19 K/uL (0-0.50); Eosinophils % (auto) 1.6 %; Immature Granulocytes # (auto) 0.12 K/uL (0.00-0.02); Lymphocytes # (auto) 0.79 K/uL (1.2-3.4); Lymphocytes % (auto) 6.6 %; Monocytes # (auto) 1.02 K/uL (0.24-0.82); Monocytes % (auto) 8.5 %; Neutrophils # (auto) 9.83 K/uL (1.4-6.5); Neutrophils % (auto) 81.8 %
--- NOTE | 2022-06-28 14:58 | Anesthesiology Consultation ---
Date of Service June 28, 2022 Assessment & Plan Chart Review Chart Review: Acceptable Risk for Surgery and Patient NOT seen in Pre Admission Testing Consults Requested none ASA ASA3 Proposed Anesthesia Anesthesia Type: General History Surgery Operation Date: 06/28/22 12:45 Proposed Procedures p Left Hip Incision and Drainage - Adriano Delgado MD s Possible Revision Total Hip Poly Exchange and Head - Adriano Delgado MD Height/Weight Height: 5 ft 10 in Weight: 82.2 kg Allergies Allergy/AdvReac Type Severity Reaction Status Date / Time atorvastatin [From Lipitor] AdvReac Intermediate Muscle Pain Verified 06/08/22 05:44 Medications Home Medications Medication Instructions Recorded Confirmed Last Taken levothyroxine 25 mcg tablet 25 mcg PO QAM 05/18/22 06/08/22 06/08/22 03:00 (Euthyrox) lisinopril 5 mg tablet (Zestril) 5 mg PO QAM 05/18/22 06/08/22 06/07/22 04:00 metformin 500 mg tablet 1,000 mg PO BID 05/18/22 06/08/22 06/07/22 16:00 omeprazole 40 mg capsule,delayed 40 mg PO QAM 05/18/22 06/08/22 06/08/22 03:00 release rosuvastatin 20 mg tablet (Crestor) 20 mg PO HS 05/18/22 06/08/22 06/07/22 16:00 sitagliptin phosphate 50 mg tablet 50 mg PO QAM 05/18/22 06/08/22 06/07/22 04:00 (Januvia) diclofenac sodium 75 mg 75 mg PO BID post operative 06/09/22 Unknown tablet,delayed release inflammation relief 30 days #60 tabs oxycodone 5 mg tablet 5 mg PO Q4H Post op pain control 06/09/22 Unknown #28 tabs Past Medical History Medical History DM type 2 (diabetes mellitus, type 2) GERD (gastroesophageal reflux disease) History of prostate cancer Dx 2019 - s/p radiation History of rheumatic fever as a child HLD (hyperlipidemia) [place] (hard of hearing) HTN (hypertension) Hypothyroidism Osteoarthritis Exercise / Class Metabolic Activity III < 4 Walking/Shop/Light housework Past Family History Family History Other No family history of adverse response to anesthesia Past Surgical History Surgical History History of cholecystectomy History of colonoscopy History of prostate biopsy History of shoulder surgery Rt History of tonsillectomy Past Anesthesia History No Hx of Anesthesia Complications and No Family Hx of Anesthesia Complications History of PONV No Hx of PONV and No Hx of Motion Sickness Social History Smoking Status: Never smoker Hx Alcohol Use: No Hx Substance Use: No substance use type: does not use Physical Exam Vital Signs Last Vital Signs Temp 36.6 C 06/28/22 13:59 Pulse 88 06/28/22 13:59 Resp 18 06/28/22 13:59 BP 97/62 L 06/28/22 13:59 Pulse Ox 97 06/28/22 13:59 O2 Del Method 06/28/22 13:59 Testing Laboratory Results 06/28/22 14:08 06/28/22 14:08 Electrocardiogram Date: 05/17/22 Findings: + SB @ (@ 55)
[2022-06-28] MEDS ORDERED: TRANEXAMIC ACID / 0.7% NACL 1000MG/100ML BAG IV ONE (15:52)
[2022-06-28] MEDS ORDERED: DAKIN'S SOLN 0.5% FULL STRENGTH 473ML BTL EXT ONE (16:01)
[2022-06-28] MEDS ORDERED: LABETALOL HCL IV 5 MG/ML 20ML IV PRN (16:04)
[2022-06-28] MEDS ORDERED: FLUMAZENIL 0.1 MG/1 ML 10 ML VIAL IV PRN (16:04)
[2022-06-28] MEDS ORDERED: ATROPINE SULFATE 0.1 MG/ML 10ML SYR IV PRN (16:04)
[2022-06-28] MEDS ORDERED: ePHEDrine sulfate 50 MG/ML AMP IV PRN (16:04)
[2022-06-28] MEDS ORDERED: fentaNYL citrate 100 MCG/2 ML VIAL IV PRN (16:04)
[2022-06-28] MEDS ORDERED: HYDROmorphone INJ 1 MG/ML SYRINGE IV PRN (16:04)
[2022-06-28] MEDS ORDERED: NALOXONE HCL 0.4 MG/1 ML VIAL/CARP IV PRN ×2 (16:04→18:07)
[2022-06-28] MEDS ORDERED: PROMETHAZINE HCL 12.5 MG in SODIUM CHLORIDE 0.9% 50 ML IV PRN (16:04)
[2022-06-28] MEDS ORDERED: PHENYLEPHRINE HCL 10 MG/ML VIAL ONE (16:08)
[2022-06-28] MEDS ORDERED: ceFAZolin 2000MG 2,000 MG/15 ML SYR IV ONE (16:34)
[2022-06-28] MEDS ORDERED: VANCOMYCIN HCL 1000MG/20ML VIAL ONE (16:38)
[2022-06-28] MEDS ORDERED: SODIUM CHLORIDE 0.9% IV ONE (16:56)
[2022-06-28] MEDS ORDERED: VANCOMYCIN HCL IV ONE (16:56)
[2022-06-28] MEDS ORDERED: ALBUMIN 25% 12.5 GM/50 ML VIAL IV ONE (17:07)
[2022-06-28] MEDS ORDERED: NEOSTIGMINE METHYLSULFATE 1 MG/ML 10ML VIAL ONE (17:45)
[2022-06-28] MEDS ORDERED: MAGNESIUM HYDROXIDE SUSP 30 ML UDC PO PRN (18:07)
[2022-06-28] MEDS ORDERED: diphenhydrAMINE 50 MG/ML VIAL IV PRN (18:07)
[2022-06-28] MEDS ORDERED: oxyCODONE HCL IR 5 MG TAB (IMMEDIATE RELEASE) PO PRN (18:07)
[2022-06-28] MEDS ORDERED: ALUMINUM/MAGNESIUM SUSP 30 ML UDC PO PRN (18:07)
[2022-06-28] MEDS ORDERED: HYDROmorphone INJ 0.5 MG/0.5 ML SYR IV PRN (18:07)
[2022-06-28] MEDS ORDERED: bisacodyL 10 MG SUPP PR PRN (18:07)
[2022-06-28] MEDS ORDERED: VANCOMYCIN CONSULT ACTIVE PRN (18:07)
[2022-06-28] MEDS ORDERED: METOCLOPRAMIDE HCL INJ 5 MG/ML 2 ML VIAL IV PRN (18:07)
--- NOTE | 2022-06-28 18:07 | Operative Report ---
Post Operative Report Pre & Post Diagnosis Operation Date: 06/28/22 12:45 Pre-Op Diagnosis: Left hip hematoma/infected joint status post total hip arthroplasty Post-Op Diagnosis: Left hip hematoma/infected joint status post total hip arthroplasty I identified the patient and participated in the time-out.: Yes Procedure Operation Date: 06/28/22 12:45 Actual Procedures p Left Hip Incision and Drainage(Left) - Adriano Delgado MD s Revision Total Hip Poly Exchange and Head(Left) - Adriano Delgado MD Surgeon Adriano Delgado MD Ditch Worker Marlyn Reeves PA-C Estimated Blood Loss 100 Findings Consistent with Post-Op Diagnosis Specimens superficial and deep tissue cultures Description of Procedure I was present during the entire procedure assisting with positioning, prepping, draping, wound retraction, wound closure and Prevena application. No fellow present. Please see Dr. Delgado procedure note for specifics of the case. I attest to the content of the Intraoperative Record and any orders documented therein. Any exceptions are noted below.
[2022-06-28] MEDS ORDERED: TAMSULOSIN HCL 0.4 MG CAP PO PRN (18:12)
[2022-06-28] MEDS ORDERED: PHARMACY GLYCEMIC MGMT CONSULT PRN (18:12)
--- NOTE | 2022-06-28 18:19 | Operative Report ---
Post Operative Report Pre & Post Diagnosis Operation Date: 06/28/22 12:45 Pre-Op Diagnosis: Left hip hematoma/infected joint status post total hip arthroplasty Post-Op Diagnosis: Left hip hematoma/infected joint status post total hip arthroplasty I identified the patient and participated in the time-out.: Yes Procedure Operation Date: 06/28/22 12:45 Actual Procedures p Left Hip Incision and Drainage(Left) - Adriano Delgado MD s Revision Total Hip Poly Exchange and Head(Left) - Adriano Delgado MD Surgeon Adriano Delgado MD Clinical Manager Home Care ROSALIO Reeves PA-C. No resident or fellow was available to assist. Estimated Blood Loss 100 Findings Consistent with Post-Op Diagnosis Fluids 1500 cc crystalloid and 250 cc of albumin Specimens 2 sets of cultures were sent including 1 tissue culture Anesthesia Type General Complications none Disposition Disposition: Recovery Room Indications 71-year-old male, with medical history significant for diabetes, called into our clinic this morning reporting drainage from his hip wound yesterday evening and this morning. He is status post a total hip arthroplasty almost 3 weeks ago. Prior to last night he had not had any pain after surgery and was up moving around without any difficulty. Yesterday he started to have a little pain which improved after his wound drained serosanguineous fluid this morning. We saw him in clinic this afternoon. He clearly had a fluid collection underneath the wound but had minimal redness. This was suspicious for hematoma versus possible infected total joint arthroplasty. I had a long discussion with the patient and his son about the recommendation for surgical intervention. Risks and benefits were reviewed in detail. All questions were answered. Informed consent was signed. Description of Procedure Patient was identified in the preoperative holding area where his surgical site was marked. He is brought back to the main operating room where is placed the operating table and general anesthesia was administered. He was carefully moved up in the lateral decubitus position. Axillary roll was placed. All bony prominences were padded. The wound was inspected and we were able to express a large volume of purulent fluid out from the distal aspect of his wound. I would estimate this to be approximately 100-150 cc. Once we had expressed out all the purulent fluid the limb was then prepped and draped in the usual sterile fashion. Prior to incision a multidiscipline timeout was called. All in the room were in agreement. We began by opening up his previous incision and extending it proximally 2 cm distally. Immediately upon cutting through the skin and subcutaneous tissue we encountered a large purulent fluid pocket. Culture swabs were taken of the fluid pocket in the fluid. These were passed off. The fascial layer was inspected and there was a defect in the fascial layer. We therefore removed the remaining PDS sutures in the fascial layer. At this point we inspected the wound and there was a pseudomembrane covering most of the subcutaneous tissues. Using electrocautery I sharply excised the pseudomembrane throughout the entirety of the wound. Portions of the pseudomembrane were sent for tissue culture. I then ellipsed out approximately 4 mm of the skin edge on each side of the wound. Meticulous hemostasis was ensured with electrocautery. Next the Charnley retractor was placed. Sutures from his previous posterior capsular repair were removed. Pseudomembrane from the deeper layers was then removed with electrocautery. Once this was complete the hip was dislocated and the femoral head was removed using a bone tamp and a mallet. Pseudomembrane from the anterior, inferior superior and posterior capsule were carefully resected. Small pocket was made for the trunnion along the anterior inferior of the acetabulum. Using some traction on the leg we were able to talk the trunnion in front of the anterior inferior acetabulum. The polyethylene liner was removed. Inspection of the underlying cup revealed it to be well fixed. There was no purulent fluid underneath the polyethylene. At this point we used a Betadine soaked Ray-Ronan sponge x3 and scrubbed out the titanium shell of the acetabulum as well as the trunnion so that any exposed metal surfaces were completely debrided of any potential biofilm. The wound was then irrigated out with copious amounts normal saline. We then soaked the wound with Dakin solution for 3 minutes, irrigated this out with normal saline, then irrigated the wound out with dilute Betadine solution. While the Betadine solution was in the wound sitting for 3 minutes we changed out our gloves as well as the suction tip placed new drapes and passed off the dirty instruments so we were only using clean instruments going forward. The dilute Betadine solution was then suctioned out of the wound and the wound was irrigated with another 3 L of normal saline. The acetabulum was reexposed and the same size liner which we had previously had in place was opened up. This was a +410 degree face changing liner with a 36 mm inner diameter and 56 mm outer diameter. This was positioned to give him relatively more anteversion on the cup. The liner was impacted into position and the locking mechanism engaged. We then exposed the femoral trunnion. A new 36 mm +5 femoral head was impacted onto the trunnion gently and the hip was atraumatically reduced. At this point the wound was irrigated out with more normal saline so a total of 9 L of irrigation were used. We then closed the capsule using #1 PDS sutures through his previous bone tunnel through the abductor tendon. Another [id number] suture was placed between the posterior capsular limb and the superior capsule. The fascia was run with a loop #1 PDS. The subcutaneous layer was closed with running #1 PDS. The skin was closed with 2-0 Prolene in horizontal mattress fashion. A Prevena wound VAC was applied. Patient was carefully rolled supine extubated and transferred recovery room in stable condition. Of note he did receive IV antibiotics of 2 g of Ancef and 1200 mg of vancomycin which was dosed at 15 mg/kg after he had obtained his cultures. Postoperative course: Patient be admitted to the floor. Blood cultures will be obtained this evening. We will keep him on empiric antibiotics of vancomycin and Zosyn. Infectious diseases will be consulted. We will follow his cultures. He will likely need a PICC line once his blood cultures come back negative. Internal medicine will be consulted given his elevated creatinine at 2.6 and his preoperative laboratories. We will keep him on IV fluids overnight which hopefully will help with any potential prerenal causes for his elevated creatinine. Aspirin for DVT prophylaxis. Pharmacy will be consulted for management of his diabetes as he will need tight perioperative glucose control to help him clear this infection. I attest to the content of the Intraoperative Record and any orders documented therein. Any exceptions are noted below.
[2022-06-28] MEDS ORDERED: GLUCOSE 10 TAB/TUBE PO PRN (19:00)
[2022-06-28] MEDS ORDERED: PIPERACILLIN/TAZOBACTAM 4.5 GM in DEXTROSE 5% 100 ML IV ONE (19:00)
[2022-06-28] MEDS ORDERED: CARBOHYDRATES FOR HYPOGLYCEMIA PO PRN (19:00)
[2022-06-28] MEDS ORDERED: KETOROLAC TROMETHAMINE 15 MG/ML VIAL IV SCH (19:00)
[2022-06-28] MEDS ORDERED: DEXTROSE 50% 50 ML SYRINGE IV PRN (19:00)
[2022-06-28] MEDS ORDERED: GLUCAGON FOR INJ 1 MG VIAL IM PRN (19:00)
[2022-06-28] MEDS ORDERED: GLUCOSE 40% GEL 15 GM TUBE PO PRN (19:00)
--- NOTE | 2022-06-28 19:08 | XRay Report ---
XR pelvis 1-2V routine CLINICAL HISTORY: In PACU - Post Surgical COMPARISON STUDY: Pelvis 06/08/2022. FINDINGS: There is again noted a left total arthroplasty. The hardware appears intact. No fracture or dislocation within the pelvis or hips. Soft tissue gas within the left hip consistent with expected postoperative change. IMPRESSION: Left total hip arthroplasty. No evidence for hardware complication. ACT 112: Negative or not required by law. Electronically signed by: Royal Garcia M.D. 06/28/2022 7:07 PM
[2022-06-28] MEDS ORDERED: LACTATED RINGER'S 1,000 ML IV ONE (19:11)
[2022-06-28] MEDS ORDERED: VANCOMYCIN HCL 750 MG in SODIUM CHLORIDE 0.9% 250 ML IV ONE (19:15)
--- NOTE | 2022-06-28 19:37 | Pharmacy Report ---
Pharmacy PK ABX Note - Date of Service June 28, 2022 - Assessment and Plan Assessment 71 year old M receiving empiric vancomycin and Zosyn for treatment of prosthetic total hip joint infection. Patient was a direct admission for revision surgery from orthopedic clinic. Currently POD #0 s/p left hip revision. Cultures of left hip obtained/pending. SCr: 2.6 mg/dL, baseline appears to be ~1.2 mg/dL. ESR/CRP elevated with leukocytosis. Day # 1 of antimicrobial therapy. Plan Vancomycin * Loading dose: 1200 mg IV x 1 given preop, will give additional 750 mg dose now to equal ~25 mg/kg load * Given significantly elevated SCr, will order random level tomorrow morning Zosyn * 3.375 g IV q8h - appropriate Pharmacy will continue to follow and will adjust dose/frequency as necessary. Thank you. Pharmacy has transitioned to AUC monitoring for vancomycin. AUC/LASHELL is the preferred PK/PD target and is associated with decreased risk of nephrotoxicity compared to traditional trough targets.
--- NOTE | 2022-06-28 19:38 | Anesthesiology Progress Note ---
Date of Service June 28, 2022 Anesthesia Post Procedure Vital Signs Vital Signs: Temp Pulse Pulse Resp BP Pulse Ox O2 Del Method 06/28/22 19:10 36.9 C 92 H 15 104/59 L 93 Room Air 06/28/22 18:40 89 15 112/60 99 Oxymask 06/28/22 18:30 91 H 17 102/61 100 Oxymask 06/28/22 19:00 36.9 C 90 16 107/57 L 93 Room Air 06/28/22 18:50 94 H 15 102/52 L 95 Room Air 06/28/22 18:20 93 H 16 110/65 99 Oxymask 06/28/22 18:13 36.8 C 100 H 18 105/60 99 Oxymask 06/28/22 15:00 37.2 C 88 88 20 98/55 L 95 Room Air 06/28/22 13:59 Room Air 06/28/22 13:59 36.6 C 88 18 97/62 L 97 Room Air 06/28/22 13:49 36.6 C 88 18 97/62 L 97 Room Air O2 Flow Rate 06/28/22 19:10 06/28/22 18:40 2 06/28/22 18:30 3 06/28/22 19:00 06/28/22 18:50 06/28/22 18:20 4 06/28/22 18:13 5 06/28/22 15:00 06/28/22 13:59 06/28/22 13:59 06/28/22 13:49 Pain Intensity Left Hip: Pain Intensity: 0 Transfer of Care Handoff Completed per policy Notes Mental Status: alert / awake / arousable Patient Amnestic to Procedure: Yes Nausea / Vomiting: adequately controlled Pain: adequately controlled Airway Patency, RR, SpO2: stable & adequate BP & HR: stable & adequate Hydration State: stable & adequate Anesthetic Complications: no major complications apparent
--- NOTE | 2022-06-28 19:41 | Hospitalist Consultation ---
Date of Consultation June 28, 2022 Assessment & Plan (1) Infection of prosthetic total hip joint: POD#0 s/p left hip incision and drainage and revision total hip polyexchange and head. Large purulent fluid pocket immediately on cutting through skin per operation note. [06/28] Take blood cultures now. Follow-up surgical and blood cultures. Agree with vancomycin and Zosyn for broad-spectrum coverage. Will consider switch to daptomycin if CLARISA does not resolve overnight. (2) S/P total left hip arthroplasty: [06/08/22] (3) Acute kidney injury: Suspect due to hypotension and dehydration, +/- NSAID use +/- ATN from infection - awaiting UA. Recommend dolan catheter to assess hourly urine output Hold metformin and lisinopril Avoid NSAIDs, Toradol ordered cancelled. LR 1L bolus now then @ 150ml/hr overnight Monitor urine output (4) DM type 2 (diabetes mellitus, type 2): HbA1c with a.m. labs Hold Januvia and metofmrin Pharmacy consulted for glycemic control per primary orthopedic team (5) GERD (gastroesophageal reflux disease): Switch omeprazole to pantoprazole per hospital formulary (6) HTN (hypertension): Hold lisinopril in setting of CLARISA and low normal blood pressure. 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 Continue levothyroxine 25 mcg p.o. daily (8) HLD (hyperlipidemia): Rosuvastatin 20 mg p.o. at bedtime Plan VTE prophylaxis - per primary orthopedic team Diet - T2DM Disposition - admitted to med/surg History of Present Illness Reason for Consultation: Increased BUN/Cr Attending Physician: Adriano Delgado MD History of Present Illness Richmond Prado is a 71 year old male who presents as a direct admission to the orthopedic service for left hip hematoma/infected joint status post total hip arthroplasty. He reports fever, chills for the last two days following his operation. Underwent left total hip arthroplasty performed by Dr. Samuels on June 08, 2022. Post operatively the patient feels he is doing well. No acute concerns or questions. Pre-operative labs were concerning for BUN 45 and Cr 2.6. His baseline appears to be Cr 1.2 and BUN 22. He reports urine is more concentrated but he is passing urine. He has not been eating and drinking much at all in the last few days. No shortness of breath or chest pain. No dysuria, change in urine smell or back pain. Allergies Allergy/AdvReac Type Severity Reaction Status Date / Time atorvastatin [From Lipitor] AdvReac Intermediate Muscle Pain Verified 06/08/22 05:44 Home Medications Medication Instructions Recorded Confirmed Type levothyroxine 25 mcg tablet 25 mcg PO QAM 05/18/22 06/28/22 History (Euthyrox) lisinopril 5 mg tablet (Zestril) 5 mg PO QAM 05/18/22 06/28/22 History metformin 500 mg tablet 1,000 mg PO BID 05/18/22 06/28/22 History omeprazole 40 mg capsule,delayed 40 mg PO QAM 05/18/22 06/28/22 History release rosuvastatin 20 mg tablet (Crestor) 20 mg PO HS 05/18/22 06/28/22 History sitagliptin phosphate 50 mg tablet 50 mg PO QAM 05/18/22 06/28/22 History (Januvia) diclofenac sodium 75 mg 75 mg PO BID post operative 06/09/22 Rx tablet,delayed release inflammation relief 30 days #60 tabs oxycodone 5 mg tablet 5 mg PO Q4H Post op pain control 06/09/22 Rx #28 tabs Patient History Medical History (Updated 06/28/22 @ 19:49 by Brian Mar MD) DM type 2 (diabetes mellitus, type 2) GERD (gastroesophageal reflux disease) History of prostate cancer Dx 2019 - s/p radiation History of rheumatic fever as a child HLD (hyperlipidemia) [place] (hard of hearing) HTN (hypertension) Hypothyroidism Osteoarthritis Surgical History History of cholecystectomy History of colonoscopy History of prostate biopsy History of shoulder surgery Rt History of tonsillectomy Family History Other No family history of adverse response to anesthesia Social History Smoking Status: Never smoker Second Hand Exposure: No; Hx Alcohol Use: No Hx Substance Use: No Preferred Language: Slovak Communication Ability: Effective Staff Home Therapy Rn Required: No Beliefs That Will Affect Care: None Current Living Situation: Spouse Feels Safe at Home: Yes Assistive Devices: Walker Review of Systems Review of Systems: All systems reviewed & are unremarkable except as noted in Subjective Physical Exam Constitutional: WD/WN, vitals as above Eyes: PERRL, conjunctivae normal, anicteric sclerae ENMT: external ear and nose normal, oropharynx normal Mouth: oral mucous membranes not dry Neck: trachea midline, no thyromegaly Respiratory: normal respiratory effort, lungs clear to auscultation Cardiovascular: RRR, no murmur, no edema Gastrointestinal (Abdomen): normal bowel sounds, soft, nontender, no hepatosplenomegaly Musculoskeletal: NV intact distal to operation site with normal sensation in his toes, 1st MTP and ankle plantar/dorsiflexion 5/5. cap refill < 2s Skin: no rashes, warm and dry Surgical dressing not removed No peripheral signs of infective endocarditis Neurologic: moves all extremities and awake; not confused Psychiatric: A+Ox3, euthymic affect Results & Data Results & Data ([facility]) Vital Signs (Past 12 Hours) Vital Signs Temp Pulse Pulse Resp BP Pulse Ox O2 Del Method 06/28/22 19:10 36.9 C 92 H 15 104/59 L 93 Room Air 06/28/22 18:40 89 15 112/60 99 Oxymask 06/28/22 18:30 91 H 17 102/61 100 Oxymask 06/28/22 19:00 36.9 C 90 16 107/57 L 93 Room Air 06/28/22 18:50 94 H 15 102/52 L 95 Room Air 06/28/22 18:20 93 H 16 110/65 99 Oxymask 06/28/22 18:13 36.8 C 100 H 18 105/60 99 Oxymask 06/28/22 15:00 37.2 C 88 88 20 98/55 L 95 Room Air 06/28/22 13:59 Room Air 06/28/22 13:59 36.6 C 88 18 97/62 L 97 Room Air 06/28/22 13:49 36.6 C 88 18 97/62 L 97 Room Air O2 Flow Rate 06/28/22 19:10 06/28/22 18:40 2 06/28/22 18:30 3 06/28/22 19:00 06/28/22 18:50 06/28/22 18:20 4 06/28/22 18:13 5 06/28/22 15:00 06/28/22 13:59 06/28/22 13:59 06/28/22 13:49 Laboratory Results Abnormal lab results 06/28/22 06/28/22 06/28/22 Range/Units 14:08 14:08 14:08 WBC 12.01 H (4.8-10.8) K/ul RBC 3.73 L (4.63-6.08) M/uL Hgb 10.9 L (14.0-18.0) g/dl Hct 32.8 L (40.1-51.0) % Neut # (Auto) 9.83 H (1.4-6.5) K/uL Lymph # (Auto) 0.79 L (1.2-3.4) K/uL [place] # (Auto) 1.02 H (0.24-0.82) K/uL Immature Gran # (Auto) 0.12 H (0.00-0.02) K/uL ESR 31 H (0-20) mm/hr BUN 45 H (6-23) mg/dl Creatinine 2.60 H (0.6-1.4) mg/dl Glucose 115 H (70-99(Fasting)) mg/dl POC Glucose (70-99) mg/dl C-Reactive Protein (0-0.5) mg/dl 06/28/22 06/28/22 06/28/22 Range/Units 14:08 15:15 18:15 WBC (4.8-10.8) K/ul RBC (4.63-6.08) M/uL Hgb (14.0-18.0) g/dl Hct (40.1-51.0) % Neut # (Auto) (1.4-6.5) K/uL Lymph # (Auto) (1.2-3.4) K/uL [place] # (Auto) (0.24-0.82) K/uL Immature Gran # (Auto) (0.00-0.02) K/uL ESR (0-20) mm/hr BUN (6-23) mg/dl Creatinine (0.6-1.4) mg/dl Glucose (70-99(Fasting)) mg/dl POC Glucose 127 H 127 H (70-99) mg/dl C-Reactive Protein 29.31 H (0-0.5) mg/dl ECG Indication: tachycardia Rate (beats per minute): 88 Rhythm: normal sinus Findings: no acute ischemic change Comparison ECG Date: no prior available PG Care Time/CCT Total # of Minutes Spent Total Time Spent with Patient: Total time spent is greater than 50% in coordination of care (as documented) at patient's floor/unit and/or counseling patient: Coding Level of Care Code 99138 Inpt Consult Level 4 Diagnoses Infection of prosthetic total hip joint T84.59XA; Z96.649 S/P total left hip arthroplasty Z96.642 Acute kidney injury N17.9 DM type 2 (diabetes mellitus, type 2) E11.9 GERD (gastroesophageal reflux disease) K21.9 HTN (hypertension) I10 Hypothyroidism E03.9 HLD (hyperlipidemia) E78.5
[2022-06-28] MEDS: ROSUVASTATIN CALCIUM 20 MG TAB PO SCH (20:42)
[2022-06-28] MEDS: DOCUSATE SODIUM 100 MG CAP PO SCH (20:42)
[2022-06-28] MEDS: ASPIRIN 81 MG ECTAB PO SCH (20:42)
[2022-06-28] MEDS: SENNA 8.6 MG TAB PO SCH (20:42)
[2022-06-28 20:43] LABS: Appearance Urine Cloudy (Clear); Bacteria Urine Automated Negative (Negative); Bilirubin Urine Negative (Negative); Blood Urine 1+ (Negative); Color Urine Yellow; Glucose Urine UA Negative (Negative); Ketones Urine Trace (Negative); Leukocyte Esterase Urine Trace (Negative); Nitrite Urine Negative (Negative); Protein Urine 2+ (Negative); RBC Urine Automated 0-4 /hpf (0-4); Specific Gravity Urine 1.023 (1.000-1.030); Urobilinogen Urine Negative (Negative)
[2022-06-28] MEDS: INSULIN ASPART PER UNIT SC SCH ×2 (20:46→23:10)
[2022-06-28] MEDS: LACTATED RINGER'S 1,000 ML IV SCH (20:48)
[2022-06-28] MEDS ORDERED: metFORMIN HCL 500 MG TAB PO SCH (21:00)
[2022-06-28] MEDS: ACETAMINOPHEN 500 MG TAB PO SCH (21:44)
[2022-06-29] MEDS: PIPERACILLIN/TAZOBACTAM 3.375 GM in DEXTROSE 5% 100 ML IV SCH ×3 (00:02→17:24)
[2022-06-29] MEDS ORDERED: TRANEXAMIC ACID / 0.7% NACL 1,000 MG/100 ML BAG IV SCH (00:15)
[2022-06-29] MEDS: LACTATED RINGER'S 1,000 ML IV SCH ×2 (03:04→10:07)
[2022-06-29] MEDS ORDERED: VANCOMYCIN HCL 1,250 MG in SODIUM CHLORIDE 0.9% 250 ML IV SCH (04:15)
[2022-06-29] MEDS: ACETAMINOPHEN 500 MG TAB PO SCH ×3 (05:55→21:17)
[2022-06-29] MEDS: LEVOTHYROXINE SODIUM 25 MCG TABLET PO SCH (05:55)
[2022-06-29] MEDS ORDERED: ceFAZolin 2000MG 2,000 MG/15 ML SYR IV SCH (06:00)
[2022-06-29 07:18] LABS: Hematocrit (blood only) 27.8 % (40.1-51.0); Hemoglobin 9.3 g/dl (14.0-18.0); Mean Corpuscular Hgb Conc 33.5 g/dL (32.0-36.0); Mean Corpuscular Volume 86.6 fL (80.0-100.0); Mean Platelet Volume 9.8 fL (9.4-12.4); Platelet Count 237 K/uL (130-400); RDW Coefficient of Variation 13.7 % (11.5-14.5); RDW Standard Deviation 43.6 fL (36.4-46.3); Red Blood Count 3.21 M/uL (4.63-6.08); White Blood Count 11.12 K/ul (4.8-10.8)
[2022-06-29 07:42] LABS: Basophils # (manual) 0.11 K/uL (0-0.2); Basophils % (manual) 1 %; Dohle Bodies 1+; Echinocytes 2+; Eosinophils # (manual) 0.67 K/uL (0-0.50); Eosinophils % (manual) 6 %; Lymphocytes % (manual) 9 %; Monocytes # (manual) 0.56 K/uL (0.24-0.82); Monocytes % (manual) 5 %; Neutrophils % (manual) 80 %
[2022-06-29 07:43] LABS: BUN Creatinine Ratio 20.9 (10-20); Calcium 8.4 mg/dl (8.5-10.1); Creatinine Clr Calc Pharmacy 37.4 ml/min; Est GFR (Non-African American) 35.4 ml/min; Potassium 4.1 mmol/L (3.5-5.1)
[2022-06-29] MEDS: PANTOprazole 40 MG TAB PO SCH (07:44)
[2022-06-29] MEDS: DOCUSATE SODIUM 100 MG CAP PO SCH ×2 (07:44→21:17)
[2022-06-29] MEDS: ASPIRIN 81 MG ECTAB PO SCH ×2 (07:44→21:16)
[2022-06-29] MEDS: MULTIVITAMIN TAB PO SCH (07:44)
--- NOTE | 2022-06-29 08:16 | Hospitalist Progress Note ---
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 with Dr Delgado on 06/28 Large purulent fluid pocket immediately on cutting through skin per operation note Procal 12.35, ESR 31 On Vanco/Zosyn WBC improved, afebrile Blood cultures pending -- NGTD Cx from OR pending, GS many WBC, few gram positive cocci -- staph species on preliminary, consider d/c the Zosyn CLARISA on admit with Cr 2.6, had reported not eating/drinking much in prior several days Placed on IVF @ 150cc/hr, continued through lunchtime today and discontinued. Cr improved to 1.87 (baseline 1.2) and reported improvement in PO intake. Dolan w/ clear yellow urine draining. Continue to hold lisinopril for now, monitor BMP in AM Discussed abx w/ ortho PA -- they are planning to continue Vanco/Zosyn until they here from [place] -- consult placed this afternoon Pain control/bowel regimen/PT/OT per primary service PT/OT consulted DVT proph -- shelbi mauro ASA PICC line to be obtained by primary service tomorrow -- would wait for placement until BCx NGTD for at least 48 hours prior. Likely needing 6wks abx (2) S/P total left hip arthroplasty: Plan: Initial L GOMEZ done on 06/08/22 see above (3) Acute kidney injury: Plan: Suspect due to hypotension and dehydration, +/- NSAID use, lisinopril, +/- ATN NSAIDs (diclofenac) DISCONTINUED, DISCONTINUED toradol as ordered on admission. AVOID NSAIDs UA not appearing infected -- cx pending Dolan with clearer yellow drainage, reported improvement in PO intake Given 1L LR bolus, then ordered IVF @150cc/hr overnight which was continued through lunch today, encouraged PO intake Continue to hold lisinopril for now UOP great, monitor consider switching abx to Dapto in meantime while awaiting cx however CK was minimally elevated 475 which could be from surgery but will monitor on repeat for trend BMP in AM (4) DM type 2 (diabetes mellitus, type 2): Plan: HbA1c with a.m. 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 Continue levothyroxine 25 mcg p.o. daily (8) HLD (hyperlipidemia): Plan: Rosuvastatin 20 mg p.o. at bedtime Plan Thank you for allowing hospitalist service to participate in the care of Mr Prado. Hospitalist service will follow along for now. Please call with any questions/concerns. Admission and Anticipated Discharge Date Admission Date: June 28, 2022 Supervising Physician Co-Signing Physician Notes PA Supervision Note: I did not personally see or examine the patient today, but I verified all bahena points of SHAINA Padilla's assessment and plan with the following exceptions/additions: None Subjective eval around 10:30am doing well, sitting up in chair no fever/chills/chest pain/shortness of breath +BM yesterday, moves about every other day. no abdominal pain/distention. reports some pressure sensation to the left hip, not painful though. wound vac in place, no drainage currently noted discussed cultures without growth but will need to ensure blood cultures also negative, currently NGTD. No lightheaded/dizziness, Cr improved. Reported had not been eating/drinking much at all in last few days. Will d/c IVF this afternoon, continue to hold lisinopril until tomorrow pending BPs/Cr/hydration status tomorrow, check post-void residual. Questions/concerns addressed at this time. Review of Systems Review of Systems: All systems reviewed & are unremarkable except as noted in HPI & below Physical Exam Physical Exam: General: WD/WN male sitting up in recliner, NAD HEENT: head normocephalic, atraumatic, mmm, trachea midline without deviation Resp: CTAB, no w/c, on room air CV: RRR, no m/r/g, no pitting edema/calf tenderness MSK/Neuro: dressing to L hip c/d/i, prevena without drainage noted, slightly tender along L hip incision site but without erythema/drainage noted : dolan draining clear yellow urine Psych: AOx3, pleasant and cooperative Results & Data Results & Data ([facility]) Vital Signs (Past 12 Hours) Vital Signs Temp Pulse Pulse Resp BP BP Pulse Ox 06/29/22 07:38 37.2 C 86 16 89/60 L 96 06/29/22 03:02 87 105/63 06/29/22 03:00 36.6 C 83 18 91/55 L 95 06/28/22 23:27 36.8 C 87 18 101/65 95 06/28/22 22:28 36.6 C 91 H 18 115/67 96 06/28/22 21:30 36.3 C L 85 18 99/63 L 96 06/28/22 20:30 37.2 C 86 18 113/68 94 O2 Del Method 06/29/22 07:38 Room Air 06/29/22 03:02 06/29/22 03:00 Room Air 06/28/22 23:27 Room Air 06/28/22 22:28 Room Air 06/28/22 21:30 Room Air 06/28/22 20:30 Room Air Laboratory Results 06/29/22 06/29/22 06/29/22 Range/Units 11:47 07:48 06:56 WBC (4.8-10.8) K/ul RBC (4.63-6.08) M/uL Hgb (14.0-18.0) g/dl Hct (40.1-51.0) % MCV (80.0-100.0) fL MCH (25.0-34.0) pg MCHC (32.0-36.0) g/dL RDW Std Deviation (36.4-46.3) fL RDW Coeff of Lauren (11.5-14.5) % Plt Count (130-400) K/uL MPV (9.4-12.4) fL Immature Gran % (Auto) % Neut % (Auto) % Lymph % (Auto) % [place] % (Auto) % Eos % (Auto) % Baso % (Auto) % Neut # (Auto) (1.4-6.5) K/uL Lymph # (Auto) (1.2-3.4) K/uL [place] # (Auto) (0.24-0.82) K/uL Eos # (Auto) (0-0.50) K/uL Baso # (Auto) (0-0.2) K/uL Immature Gran # (Auto) (0.00-0.02) K/uL Neutrophils % (Manual) % Lymphocytes % (Manual) % Monocytes % (Manual) % Eosinophils % (Manual) % Basophils % (Manual) % Neutrophils # (Manual) (1.4-6.5) K/uL Lymphocytes # (Manual) (1.2-3.4) K/uL Monocytes # (Manual) (0.24-0.82) K/uL Eosinophils # (Manual) (0-0.50) K/uL Basophils # (Manual) (0-0.2) K/uL Dohle Bodies Echinocytes ESR (0-20) mm/hr Sodium (136-145) mmol/L Potassium (3.5-5.1) mmol/L Chloride (98-107) mmol/L Carbon Dioxide (21-32) mmol/L Anion Gap (3-11) BUN (6-23) mg/dl Creatinine (0.6-1.4) mg/dl Est Cr Clr Drug Dosing ml/min Est GFR ( Amer) ml/min Est GFR (Non-Af Amer) ml/min BUN/Creatinine Ratio (10-20) Glucose (70-99(Fasting)) mg/dl POC Glucose 199 H 151 H (70-99) mg/dl Estimat Average Glucose mg/dl Hemoglobin A1c (4.5-5.6) % Calcium (8.5-10.1) mg/dl Total Bilirubin (0.2-1.0) mg/dl AST (13-39) U/L ALT (7-52) U/L Alkaline Phosphatase (34-104) U/L Total Creatine Kinase 475 H (30-223) U/L C-Reactive Protein (0-0.5) mg/dl Total Protein (6.0-8.3) gm/dl Albumin (3.4-5.0) gm/dl Globulin (2.5-4.0) gm/dl Albumin/Globulin Ratio (0.9-2) Procalcitonin (0-0.5) ng/ml Urine Color Urine Appearance (Clear) Urine pH (4.5-7.5) Ur Specific [place] (1.000-1.030) Urine Protein (Negative) Urine Glucose (UA) (Negative) Urine Ketones (Negative) Urine Blood (Negative) Urine Nitrite (Negative) Urine Bilirubin (Negative) Urine Urobilinogen (Negative) Ur Leukocyte Esterase (Negative) Urine WBC (Auto) (0-5) /hpf Urine RBC (Auto) (0-4) /hpf U Hyaline Cast (Auto) (0-5) /lpf U Epithel Cells (Auto) (0-5) /lpf Urine Bacteria (Auto) (Negative) Urine Yeast Random Vancomycin (10-20) mcg/ml Blood Type Antibody Screen 06/29/22 06/29/22 06/29/22 Range/Units 06:56 06:56 06:56 WBC (4.8-10.8) K/ul RBC (4.63-6.08) M/uL Hgb (14.0-18.0) g/dl Hct (40.1-51.0) % MCV (80.0-100.0) fL MCH (25.0-34.0) pg MCHC (32.0-36.0) g/dL RDW Std Deviation (36.4-46.3) fL RDW Coeff of Lauren (11.5-14.5) % Plt Count (130-400) K/uL MPV (9.4-12.4) fL Immature Gran % (Auto) % Neut % (Auto) % Lymph % (Auto) % [place] % (Auto) % Eos % (Auto) % Baso % (Auto) % Neut # (Auto) (1.4-6.5) K/uL Lymph # (Auto) (1.2-3.4) K/uL [place] # (Auto) (0.24-0.82) K/uL Eos # (Auto) (0-0.50) K/uL Baso # (Auto) (0-0.2) K/uL Immature Gran # (Auto) (0.00-0.02) K/uL Neutrophils % (Manual) % Lymphocytes % (Manual) % Monocytes % (Manual) % Eosinophils % (Manual) % Basophils % (Manual) % Neutrophils # (Manual) (1.4-6.5) K/uL Lymphocytes # (Manual) (1.2-3.4) K/uL Monocytes # (Manual) (0.24-0.82) K/uL Eosinophils # (Manual) (0-0.50) K/uL Basophils # (Manual) (0-0.2) K/uL Dohle Bodies Echinocytes ESR (0-20) mm/hr Sodium 138 (136-145) mmol/L Potassium 4.1 (3.5-5.1) mmol/L Chloride 107 (98-107) mmol/L Carbon Dioxide 24 (21-32) mmol/L Anion Gap 7 (3-11) BUN 39 H (6-23) mg/dl Creatinine 1.87 H D (0.6-1.4) mg/dl Est Cr Clr Drug Dosing 37.4 ml/min Est GFR ( Amer) 41.0 ml/min Est GFR (Non-Af Amer) 35.4 ml/min BUN/Creatinine Ratio 20.9 H (10-20) Glucose 133 H (70-99(Fasting)) mg/dl POC Glucose (70-99) mg/dl Estimat Average Glucose 148 mg/dl Hemoglobin A1c 6.8 H (4.5-5.6) % Calcium 8.4 L (8.5-10.1) mg/dl Total Bilirubin (0.2-1.0) mg/dl AST (13-39) U/L ALT (7-52) U/L Alkaline Phosphatase (34-104) U/L Total Creatine Kinase (30-223) U/L C-Reactive Protein (0-0.5) mg/dl Total Protein (6.0-8.3) gm/dl Albumin (3.4-5.0) gm/dl Globulin (2.5-4.0) gm/dl Albumin/Globulin Ratio (0.9-2) Procalcitonin (0-0.5) ng/ml Urine Color Urine Appearance (Clear) Urine pH (4.5-7.5) Ur Specific [place] (1.000-1.030) Urine Protein (Negative) Urine Glucose (UA) (Negative) Urine Ketones (Negative) Urine Blood (Negative) Urine Nitrite (Negative) Urine Bilirubin (Negative) Urine Urobilinogen (Negative) Ur Leukocyte Esterase (Negative) Urine WBC (Auto) (0-5) /hpf Urine RBC (Auto) (0-4) /hpf U Hyaline Cast (Auto) (0-5) /lpf U Epithel Cells (Auto) (0-5) /lpf Urine Bacteria (Auto) (Negative) Urine Yeast Random Vancomycin 10.0 (10-20) mcg/ml Blood Type Antibody Screen 06/29/22 06/28/22 06/28/22 Range/Units 06:56 23:00 20:32 WBC 11.12 H (4.8-10.8) K/ul RBC 3.21 L (4.63-6.08) M/uL Hgb 9.3 L (14.0-18.0) g/dl Hct 27.8 L (40.1-51.0) % MCV 86.6 (80.0-100.0) fL MCH 29.0 (25.0-34.0) pg MCHC 33.5 (32.0-36.0) g/dL RDW Std Deviation 43.6 (36.4-46.3) fL RDW Coeff of Lauren 13.7 (11.5-14.5) % Plt Count 237 (130-400) K/uL MPV 9.8 (9.4-12.4) fL Immature Gran % (Auto) % Neut % (Auto) % Lymph % (Auto) % [place] % (Auto) % Eos % (Auto) % Baso % (Auto) % Neut # (Auto) (1.4-6.5) K/uL Lymph # (Auto) (1.2-3.4) K/uL [place] # (Auto) (0.24-0.82) K/uL Eos # (Auto) (0-0.50) K/uL Baso # (Auto) (0-0.2) K/uL Immature Gran # (Auto) (0.00-0.02) K/uL Neutrophils % (Manual) 80 % Lymphocytes % (Manual) 9 % Monocytes % (Manual) 5 % Eosinophils % (Manual) 6 % Basophils % (Manual) 1 % Neutrophils # (Manual) 8.90 H (1.4-6.5) K/uL Lymphocytes # (Manual) 1.00 L (1.2-3.4) K/uL Monocytes # (Manual) 0.56 (0.24-0.82) K/uL Eosinophils # (Manual) 0.67 H (0-0.50) K/uL Basophils # (Manual) 0.11 (0-0.2) K/uL Dohle Bodies 1+ Echinocytes 2+ ESR (0-20) mm/hr Sodium (136-145) mmol/L Potassium (3.5-5.1) mmol/L Chloride (98-107) mmol/L Carbon Dioxide (21-32) mmol/L Anion Gap (3-11) BUN (6-23) mg/dl Creatinine (0.6-1.4) mg/dl Est Cr Clr Drug Dosing ml/min Est GFR ( Amer) ml/min Est GFR (Non-Af Amer) ml/min BUN/Creatinine Ratio (10-20) Glucose (70-99(Fasting)) mg/dl POC Glucose 203 H 141 H (70-99) mg/dl Estimat Average Glucose mg/dl Hemoglobin A1c (4.5-5.6) % Calcium (8.5-10.1) mg/dl Total Bilirubin (0.2-1.0) mg/dl AST (13-39) U/L ALT (7-52) U/L Alkaline Phosphatase (34-104) U/L Total Creatine Kinase (30-223) U/L C-Reactive Protein (0-0.5) mg/dl Total Protein (6.0-8.3) gm/dl Albumin (3.4-5.0) gm/dl Globulin (2.5-4.0) gm/dl Albumin/Globulin Ratio (0.9-2) Procalcitonin (0-0.5) ng/ml Urine Color Urine Appearance (Clear) Urine pH (4.5-7.5) Ur Specific [place] (1.000-1.030) Urine Protein (Negative) Urine Glucose (UA) (Negative) Urine Ketones (Negative) Urine Blood (Negative) Urine Nitrite (Negative) Urine Bilirubin (Negative) Urine Urobilinogen (Negative) Ur Leukocyte Esterase (Negative) Urine WBC (Auto) (0-5) /hpf Urine RBC (Auto) (0-4) /hpf U Hyaline Cast (Auto) (0-5) /lpf U Epithel Cells (Auto) (0-5) /lpf Urine Bacteria (Auto) (Negative) Urine Yeast Random Vancomycin (10-20) mcg/ml Blood Type Antibody Screen 06/28/22 06/28/22 06/28/22 Range/Units 20:15 19:33 18:15 WBC (4.8-10.8) K/ul RBC (4.63-6.08) M/uL Hgb (14.0-18.0) g/dl Hct (40.1-51.0) % MCV (80.0-100.0) fL MCH (25.0-34.0) pg MCHC (32.0-36.0) g/dL RDW Std Deviation (36.4-46.3) fL RDW Coeff of Lauren (11.5-14.5) % Plt Count (130-400) K/uL MPV (9.4-12.4) fL Immature Gran % (Auto) % Neut % (Auto) % Lymph % (Auto) % [place] % (Auto) % Eos % (Auto) % Baso % (Auto) % Neut # (Auto) (1.4-6.5) K/uL Lymph # (Auto) (1.2-3.4) K/uL [place] # (Auto) (0.24-0.82) K/uL Eos # (Auto) (0-0.50) K/uL Baso # (Auto) (0-0.2) K/uL Immature Gran # (Auto) (0.00-0.02) K/uL Neutrophils % (Manual) % Lymphocytes % (Manual) % Monocytes % (Manual) % Eosinophils % (Manual) % Basophils % (Manual) % Neutrophils # (Manual) (1.4-6.5) K/uL Lymphocytes # (Manual) (1.2-3.4) K/uL Monocytes # (Manual) (0.24-0.82) K/uL Eosinophils # (Manual) (0-0.50) K/uL Basophils # (Manual) (0-0.2) K/uL Dohle Bodies Echinocytes ESR (0-20) mm/hr Sodium (136-145) mmol/L Potassium (3.5-5.1) mmol/L Chloride (98-107) mmol/L Carbon Dioxide (21-32) mmol/L Anion Gap (3-11) BUN (6-23) mg/dl Creatinine (0.6-1.4) mg/dl Est Cr Clr Drug Dosing ml/min Est GFR ( Amer) ml/min Est GFR (Non-Af Amer) ml/min BUN/Creatinine Ratio (10-20) Glucose (70-99(Fasting)) mg/dl POC Glucose 127 H (70-99) mg/dl Estimat Average Glucose mg/dl Hemoglobin A1c (4.5-5.6) % Calcium (8.5-10.1) mg/dl Total Bilirubin (0.2-1.0) mg/dl AST (13-39) U/L ALT (7-52) U/L Alkaline Phosphatase (34-104) U/L Total Creatine Kinase (30-223) U/L C-Reactive Protein (0-0.5) mg/dl Total Protein (6.0-8.3) gm/dl Albumin (3.4-5.0) gm/dl Globulin (2.5-4.0) gm/dl Albumin/Globulin Ratio (0.9-2) Procalcitonin 12.25 H (0-0.5) ng/ml Urine Color Yellow Urine Appearance Cloudy A (Clear) Urine pH 5.0 (4.5-7.5) Ur Specific [place] 1.023 (1.000-1.030) Urine Protein 2+ H (Negative) Urine Glucose (UA) Negative (Negative) Urine Ketones Trace H (Negative) Urine Blood 1+ H (Negative) Urine Nitrite Negative (Negative) Urine Bilirubin Negative (Negative) Urine Urobilinogen Negative (Negative) Ur Leukocyte Esterase Trace H (Negative) Urine WBC (Auto) 1-5 (0-5) /hpf Urine RBC (Auto) 0-4 (0-4) /hpf U Hyaline Cast (Auto) 1-5 (0-5) /lpf U Epithel Cells (Auto) 10-20 H (0-5) /lpf Urine Bacteria (Auto) Negative (Negative) Urine Yeast Not Reportable Random Vancomycin (10-20) mcg/ml Blood Type Antibody Screen 06/28/22 06/28/22 06/28/22 Range/Units 15:15 14:08 14:08 WBC (4.8-10.8) K/ul RBC (4.63-6.08) M/uL Hgb (14.0-18.0) g/dl Hct (40.1-51.0) % MCV (80.0-100.0) fL MCH (25.0-34.0) pg MCHC (32.0-36.0) g/dL RDW Std Deviation (36.4-46.3) fL RDW Coeff of Lauren (11.5-14.5) % Plt Count (130-400) K/uL MPV (9.4-12.4) fL Immature Gran % (Auto) % Neut % (Auto) % Lymph % (Auto) % [place] % (Auto) % Eos % (Auto) % Baso % (Auto) % Neut # (Auto) (1.4-6.5) K/uL Lymph # (Auto) (1.2-3.4) K/uL [place] # (Auto) (0.24-0.82) K/uL Eos # (Auto) (0-0.50) K/uL Baso # (Auto) (0-0.2) K/uL Immature Gran # (Auto) (0.00-0.02) K/uL Neutrophils % (Manual) % Lymphocytes % (Manual) % Monocytes % (Manual) % Eosinophils % (Manual) % Basophils % (Manual) % Neutrophils # (Manual) (1.4-6.5) K/uL Lymphocytes # (Manual) (1.2-3.4) K/uL Monocytes # (Manual) (0.24-0.82) K/uL Eosinophils # (Manual) (0-0.50) K/uL Basophils # (Manual) (0-0.2) K/uL Dohle Bodies Echinocytes ESR (0-20) mm/hr Sodium (136-145) mmol/L Potassium (3.5-5.1) mmol/L Chloride (98-107) mmol/L Carbon Dioxide (21-32) mmol/L Anion Gap (3-11) BUN (6-23) mg/dl Creatinine (0.6-1.4) mg/dl Est Cr Clr Drug Dosing ml/min Est GFR ( Amer) ml/min Est GFR (Non-Af Amer) ml/min BUN/Creatinine Ratio (10-20) Glucose (70-99(Fasting)) mg/dl POC Glucose 127 H (70-99) mg/dl Estimat Average Glucose mg/dl Hemoglobin A1c (4.5-5.6) % Calcium (8.5-10.1) mg/dl Total Bilirubin (0.2-1.0) mg/dl AST (13-39) U/L ALT (7-52) U/L Alkaline Phosphatase (34-104) U/L Total Creatine Kinase (30-223) U/L C-Reactive Protein 29.31 H (0-0.5) mg/dl Total Protein (6.0-8.3) gm/dl Albumin (3.4-5.0) gm/dl Globulin (2.5-4.0) gm/dl Albumin/Globulin Ratio (0.9-2) Procalcitonin (0-0.5) ng/ml Urine Color Urine Appearance (Clear) Urine pH (4.5-7.5) Ur Specific [place] (1.000-1.030) Urine Protein (Negative) Urine Glucose (UA) (Negative) Urine Ketones (Negative) Urine Blood (Negative) Urine Nitrite (Negative) Urine Bilirubin (Negative) Urine Urobilinogen (Negative) Ur Leukocyte Esterase (Negative) Urine WBC (Auto) (0-5) /hpf Urine RBC (Auto) (0-4) /hpf U Hyaline Cast (Auto) (0-5) /lpf U Epithel Cells (Auto) (0-5) /lpf Urine Bacteria (Auto) (Negative) Urine Yeast Random Vancomycin (10-20) mcg/ml Blood Type A Positive Antibody Screen NEGATIVE 06/28/22 06/28/22 06/28/22 Range/Units 14:08 14:08 14:08 WBC 12.01 H (4.8-10.8) K/ul RBC 3.73 L (4.63-6.08) M/uL Hgb 10.9 L (14.0-18.0) g/dl Hct 32.8 L (40.1-51.0) % MCV 87.9 (80.0-100.0) fL MCH 29.2 (25.0-34.0) pg MCHC 33.2 (32.0-36.0) g/dL RDW Std Deviation 43.3 (36.4-46.3) fL RDW Coeff of Lauren 13.5 (11.5-14.5) % Plt Count 265 (130-400) K/uL MPV 9.8 (9.4-12.4) fL Immature Gran % (Auto) 1.0 % Neut % (Auto) 81.8 % Lymph % (Auto) 6.6 % [place] % (Auto) 8.5 % Eos % (Auto) 1.6 % Baso % (Auto) 0.5 % Neut # (Auto) 9.83 H (1.4-6.5) K/uL Lymph # (Auto) 0.79 L (1.2-3.4) K/uL [place] # (Auto) 1.02 H (0.24-0.82) K/uL Eos # (Auto) 0.19 (0-0.50) K/uL Baso # (Auto) 0.06 (0-0.2) K/uL Immature Gran # (Auto) 0.12 H (0.00-0.02) K/uL Neutrophils % (Manual) % Lymphocytes % (Manual) % Monocytes % (Manual) % Eosinophils % (Manual) % Basophils % (Manual) % Neutrophils # (Manual) (1.4-6.5) K/uL Lymphocytes # (Manual) (1.2-3.4) K/uL Monocytes # (Manual) (0.24-0.82) K/uL Eosinophils # (Manual) (0-0.50) K/uL Basophils # (Manual) (0-0.2) K/uL Dohle Bodies Echinocytes 2+ ESR 31 H (0-20) mm/hr Sodium 137 (136-145) mmol/L Potassium 4.1 (3.5-5.1) mmol/L Chloride 103 (98-107) mmol/L Carbon Dioxide 24 (21-32) mmol/L Anion Gap 10 (3-11) BUN 45 H (6-23) mg/dl Creatinine 2.60 H (0.6-1.4) mg/dl Est Cr Clr Drug Dosing 26.9 ml/min Est GFR ( Amer) 27.5 ml/min Est GFR (Non-Af Amer) 23.7 ml/min BUN/Creatinine Ratio 17.3 (10-20) Glucose 115 H (70-99(Fasting)) mg/dl POC Glucose (70-99) mg/dl Estimat Average Glucose mg/dl Hemoglobin A1c (4.5-5.6) % Calcium 9.4 (8.5-10.1) mg/dl Total Bilirubin 0.7 (0.2-1.0) mg/dl AST 15 (13-39) U/L ALT 19 (7-52) U/L Alkaline Phosphatase 42 (34-104) U/L Total Creatine Kinase (30-223) U/L C-Reactive Protein (0-0.5) mg/dl Total Protein 6.6 (6.0-8.3) gm/dl Albumin 3.8 (3.4-5.0) gm/dl Globulin 2.8 (2.5-4.0) gm/dl Albumin/Globulin Ratio 1.4 (0.9-2) Procalcitonin (0-0.5) ng/ml Urine Color Urine Appearance (Clear) Urine pH (4.5-7.5) Ur Specific [place] (1.000-1.030) Urine Protein (Negative) Urine Glucose (UA) (Negative) Urine Ketones (Negative) Urine Blood (Negative) Urine Nitrite (Negative) Urine Bilirubin (Negative) Urine Urobilinogen (Negative) Ur Leukocyte Esterase (Negative) Urine WBC (Auto) (0-5) /hpf Urine RBC (Auto) (0-4) /hpf U Hyaline Cast (Auto) (0-5) /lpf U Epithel Cells (Auto) (0-5) /lpf Urine Bacteria (Auto) (Negative) Urine Yeast Random Vancomycin (10-20) mcg/ml Blood Type Antibody Screen Diagnostic Findings Pelvis X-Ray 06/28/22 18:07 XR pelvis 1-2V routine CLINICAL HISTORY: In PACU - Post Surgical COMPARISON STUDY: Pelvis 06/08/2022. FINDINGS: There is again noted a left total arthroplasty. The hardware appears intact. No fracture or dislocation within the pelvis or hips. Soft tissue gas within the left hip consistent with expected postoperative change. IMPRESSION: Left total hip arthroplasty. No evidence for hardware complication. ACT 112: Negative or not required by law. Electronically signed by: Royal Garcia M.D. 06/28/2022 7:07 PM PG Care Time/CCT Total # of Minutes Spent Total Time Spent with Patient: Total time spent is greater than 50% in coordination of care (as documented) at patient's floor/unit and/or counseling patient: Coding Level of Care Code 23112 Subseq Hosp Care Lvl 3 Diagnoses Infection of prosthetic total hip joint T84.59XA; Z96.649 S/P total left hip arthroplasty Z96.642 Acute kidney injury N17.9 DM type 2 (diabetes mellitus, type 2) E11.9 GERD (gastroesophageal reflux disease) K21.9 HTN (hypertension) I10 Hypothyroidism E03.9 HLD (hyperlipidemia) E78.5
[2022-06-29] MEDS: INSULIN ASPART PER UNIT SC SCH ×4 (08:39→21:09)
[2022-06-29 08:44] LABS: Estimated Average Glucose 148 mg/dl; Hemoglobin A1C 6.8 % (4.5-5.6)
[2022-06-29] MEDS ORDERED: lisinopril 5 MG TAB PO SCH (09:00)
[2022-06-29] MEDS ORDERED: SITagliptin PHOSPHATE 25 MG TAB PO SCH (09:00)
--- NOTE | 2022-06-29 10:05 | Pharmacy Report ---
Pharmacy Glycemic Short Note 2 - Date of Service June 29, 2022 - Glycemic Short BSG Results (Last 24 hours): 06/28/22 06/28/22 06/28/22 14:08 15:15 18:15 Glucose 115 H POC Glucose 127 H 127 H 06/28/22 06/28/22 06/29/22 20:32 23:00 06:56 Glucose 133 H POC Glucose 141 H 203 H 06/29/22 07:48 Glucose POC Glucose 151 H OUTPATIENT ANTIDIABETIC REGIMEN: * Januvia, metformin * A1c 6.8% 06/29/22 ASSESSMENT: * Patient admitted follow L hip revision. No steroids ordered, T2DM diet * CLARISA on admission, SCr is trending downward * Holding basal insulin for now, fasting this AM 151 mg/dL * Continue weight based stress of 2 novolog parameters PLAN FOR INPATIENT GLYCEMIC CONTROL: * Hold outpatient oral diabetes medications * Basal insulin * Hold * Bolus insulin * NovoLog per scale ACHS or Q6hrs while NPO * Goal Range: Low 110 mg/dL - High 140 mg/dL * Correction Factor: 30 mg/dL/unit * Nutritional / Prandial insulin per carb ratio of 1 unit per 10 grams CHO consumed
[2022-06-29] MEDS: VANCOMYCIN HCL 1,250 MG in SODIUM CHLORIDE 0.9% 250 ML IV SCH (11:00)
--- NOTE | 2022-06-29 11:49 | Electrocardiogram Report ---
Test Reason : Blood Pressure : / mmHG Vent. Rate : 088 BPM Atrial Rate : 088 BPM P-R Int : 140 ms QRS Dur : 092 ms QT Int : 348 ms P-R-T Axes : 049 033 047 degrees QTc Int : 421 ms Normal sinus rhythm Diffuse Minor Nonspecific T wave abnormality Abnormal ECG No previous ECGs available Confirmed by Yvan See ([id number]) on 06/29/2022 11:49:25 AM Referred By: Adriano Delgado Confirmed By:Yvan See
--- NOTE | 2022-06-29 12:36 | Orthopedic Progress Note ---
Date of Service June 29, 2022 Assessment & Plan (1) Status post revision of total hip replacement: Plan: PT/OT Total hip precautions Ice with EZ wrap DVT prophylaxis with TEDS and Aspirin Pain control with PO meds IV ABX for infection (Zosyn and Vancomycin) Glycemic control and [place] monitored by Pharmacy Appreciate Medicine service monitoring Renal disease Consent signed for PICC line placement tomorrow ID consulted today Cultures pending Abduction pillow use Prevena to be removed in our clinic 1 week from yesterday Hopefully we can discharge patient home tomorrow but this depends on ID recommendations for ABX and culture results We will see patient again tomorrow AM Admission and Anticipated Discharge Date Admission Date: June 28, 2022 Subjective This 71 yo M is seen this afternoon, day 1 s/p Revision Left Total hip Arthroplasty with irrigation and debridement. He is doing well and has no complaints. Medicine service was consulted due to patients elevated BUN/Creatine and his hist of Renal Dz and Diabetes. He is currently receiving Zosyn and Vancomycin for the infection. Cultures obtained during surgery are still pending. Patient was advised that he will need to go home with a PICC line and will most likely need IV ABX for about 6 weeks post operatively. Currently he denies CP, SOB, Nausea, Vomiting, fever, chills or sweats. The medicine service ordered a [place] to monitor his output. Review of Systems Review of Systems: All systems reviewed & are unremarkable except as noted in Subjective Physical Exam Physical Exam: Left hip: No drainage in Prevena. Able to perform SLRT and actively dorsi/plantar flex foot. Quad strength 3/5. NV intact. Results & Data ([facility]) Vital Signs (Past 12 Hours) Vital Signs Temp Pulse Pulse Resp BP BP Pulse Ox 06/29/22 11:18 36.7 C 71 16 99/60 L 96 06/29/22 07:38 37.2 C 86 16 89/60 L 96 06/29/22 03:02 87 105/63 06/29/22 03:00 36.6 C 83 18 91/55 L 95 O2 Del Method 06/29/22 11:18 Room Air 06/29/22 07:38 Room Air 06/29/22 03:02 06/29/22 03:00 Room Air Diagnostic Findings Laboratory Results WBC 11.12 K/ul (4.8-10.8) H 06/29/22 06:56 RBC 3.21 M/uL (4.63-6.08) L 06/29/22 06:56 Hgb 9.3 g/dl (14.0-18.0) L 06/29/22 06:56 Hct 27.8 % (40.1-51.0) L 06/29/22 06:56 MCV 86.6 fL (80.0-100.0) 06/29/22 06:56 MCH 29.0 pg (25.0-34.0) 06/29/22 06:56 MCHC 33.5 g/dL (32.0-36.0) 06/29/22 06:56 RDW Std Deviation 43.6 fL (36.4-46.3) 06/29/22 06:56 RDW Coeff of Lauren 13.7 % (11.5-14.5) 06/29/22 06:56 Plt Count 237 K/uL (130-400) 06/29/22 06:56 MPV 9.8 fL (9.4-12.4) 06/29/22 06:56 Immature Gran % (Auto) 1.0 % 06/28/22 14:08 Neut % (Auto) 81.8 % 06/28/22 14:08 Lymph % (Auto) 6.6 % 06/28/22 14:08 [place] % (Auto) 8.5 % 06/28/22 14:08 Eos % (Auto) 1.6 % 06/28/22 14:08 Baso % (Auto) 0.5 % 06/28/22 14:08 Neut # (Auto) 9.83 K/uL (1.4-6.5) H 06/28/22 14:08 Lymph # (Auto) 0.79 K/uL (1.2-3.4) L 06/28/22 14:08 [place] # (Auto) 1.02 K/uL (0.24-0.82) H 06/28/22 14:08 Eos # (Auto) 0.19 K/uL (0-0.50) 06/28/22 14:08 Baso # (Auto) 0.06 K/uL (0-0.2) 06/28/22 14:08 Immature Gran # (Auto) 0.12 K/uL (0.00-0.02) H 06/28/22 14:08 Neutrophils % (Manual) 80 % 06/29/22 06:56 Lymphocytes % (Manual) 9 % 06/29/22 06:56 Monocytes % (Manual) 5 % 06/29/22 06:56 Eosinophils % (Manual) 6 % 06/29/22 06:56 Basophils % (Manual) 1 % 06/29/22 06:56 Neutrophils # (Manual) 8.90 K/uL (1.4-6.5) H 06/29/22 06:56 Lymphocytes # (Manual) 1.00 K/uL (1.2-3.4) L 06/29/22 06:56 Monocytes # (Manual) 0.56 K/uL (0.24-0.82) 06/29/22 06:56 Eosinophils # (Manual) 0.67 K/uL (0-0.50) H 06/29/22 06:56 Basophils # (Manual) 0.11 K/uL (0-0.2) 06/29/22 06:56 Dohle Bodies 1+ 06/29/22 06:56 Echinocytes 2+ 06/29/22 06:56 ESR 31 mm/hr (0-20) H 06/28/22 14:08 Sodium 138 mmol/L (136-145) 06/29/22 06:56 Potassium 4.1 mmol/L (3.5-5.1) 06/29/22 06:56 Chloride 107 mmol/L (98-107) 06/29/22 06:56 Carbon Dioxide 24 mmol/L (21-32) 06/29/22 06:56 Anion Gap 7 (3-11) 06/29/22 06:56 BUN 39 mg/dl (6-23) H 06/29/22 06:56 Creatinine 1.87 mg/dl (0.6-1.4) H D 06/29/22 06:56 Est Cr Clr Drug Dosing 37.4 ml/min 06/29/22 06:56 Est GFR ( Amer) 41.0 ml/min 06/29/22 06:56 Est GFR (Non-Af Amer) 35.4 ml/min 06/29/22 06:56 BUN/Creatinine Ratio 20.9 (10-20) H 06/29/22 06:56 Glucose 133 mg/dl (70-99(Fasting)) H 06/29/22 06:56 POC Glucose 199 mg/dl (70-99) H 06/29/22 11:47 Estimat Average Glucose 148 mg/dl 06/29/22 06:56 Hemoglobin A1c 6.8 % (4.5-5.6) H 06/29/22 06:56 Calcium 8.4 mg/dl (8.5-10.1) L 06/29/22 06:56 Total Bilirubin 0.7 mg/dl (0.2-1.0) 06/28/22 14:08 AST 15 U/L (13-39) 06/28/22 14:08 ALT 19 U/L (7-52) 06/28/22 14:08 Alkaline Phosphatase 42 U/L (34-104) 06/28/22 14:08 Total Creatine Kinase 475 U/L (30-223) H 06/29/22 06:56 C-Reactive Protein 29.31 mg/dl (0-0.5) H 06/28/22 14:08 Total Protein 6.6 gm/dl (6.0-8.3) 06/28/22 14:08 Albumin 3.8 gm/dl (3.4-5.0) 06/28/22 14:08 Globulin 2.8 gm/dl (2.5-4.0) 06/28/22 14:08 Albumin/Globulin Ratio 1.4 (0.9-2) 06/28/22 14:08 Procalcitonin 12.25 ng/ml (0-0.5) H 06/28/22 19:33 Urine Color Yellow 06/28/22 20:15 Urine Appearance Cloudy (Clear) A 06/28/22 20:15 Urine pH 5.0 (4.5-7.5) 06/28/22 20:15 Ur Specific [place] 1.023 (1.000-1.030) 06/28/22 20:15 Urine Protein 2+ (Negative) H 06/28/22 20:15 Urine Glucose (UA) Negative (Negative) 06/28/22 20:15 Urine Ketones Trace (Negative) H 06/28/22 20:15 Urine Blood 1+ (Negative) H 06/28/22 20:15 Urine Nitrite Negative (Negative) 06/28/22 20:15 Urine Bilirubin Negative (Negative) 06/28/22 20:15 Urine Urobilinogen Negative (Negative) 06/28/22 20:15 Ur Leukocyte Esterase Trace (Negative) H 06/28/22 20:15 Urine WBC (Auto) 1-5 /hpf (0-5) 06/28/22 20:15 Urine RBC (Auto) 0-4 /hpf (0-4) 06/28/22 20:15 U Hyaline Cast (Auto) 1-5 /lpf (0-5) 06/28/22 20:15 U Epithel Cells (Auto) 10-20 /lpf (0-5) H 06/28/22 20:15 Urine Bacteria (Auto) Negative (Negative) 06/28/22 20:15 Urine Yeast Not Reportable 06/28/22 20:15 Random Vancomycin 10.0 mcg/ml (10-20) 06/29/22 06:56 Blood Type A Positive 06/28/22 14:08 Antibody Screen NEGATIVE 06/28/22 14:08 Impressions Pelvis X-Ray 06/28/22 18:07 XR pelvis 1-2V routine CLINICAL HISTORY: In PACU - Post Surgical COMPARISON STUDY: Pelvis 06/08/2022. FINDINGS: There is again noted a left total arthroplasty. The hardware appears intact. No fracture or dislocation within the pelvis or hips. Soft tissue gas within the left hip consistent with expected postoperative change. IMPRESSION: Left total hip arthroplasty. No evidence for hardware complication. ACT 112: Negative or not required by law. Electronically signed by: Royal Garcia M.D. 06/28/2022 7:07 PM
--- NOTE | 2022-06-29 14:08 | XRay Report ---
TWO VIEW CHEST CLINICAL HISTORY: Preoperative examination for PICC placement. FINDINGS: PA and lateral chest radiographs are obtained. No prior studies are available for compariso n at the time of dictation. The cardiomediastinal silhouette is top normal for projection noting athe rosclerotic calcification of the thoracic aorta. There is minimal left basilar atelectasis. The lung s and pleural spaces are otherwise clear. There is no pneumothorax. The skeletal structures are osteo penic. The bony thorax appears intact. A small metallic foreign body is present within the right ante rior chest wall. IMPRESSION: No active disease in the chest. ACT 112: Negative or not required by law. Electronically signed by: Maximo Alcantara M.D. 06/29/2022 2:07 PM
--- NOTE | 2022-06-29 14:08 | Infectious Disease Consult ---
Date of Consultation June 29, 2022 Assessment & Plan (1) Infection of prosthetic total hip joint: (2) Acute kidney injury: Plan 71 yo M with a history of DM2, HTN, HLD, hypothyroidism, L GOMEZ (06/08/22) who was admitted on 06/28 due to drainage from the L hip surgical incision site, fevers, and chills, now s/p I&D and ball/liner exchange (06/28/22) for L hip PJI. OR cultures are growing Staph species, awaiting identification and susceptibilities. BCx are pending. Recommendations: -Follow-up 06/28 OR cultures -Continue vancomycin and pip-tazo for now, pending OR cultures -Will need PICC for 6 weeks of IV antibiotics -If OR culture grows Staph aureus, anticipate adding rifampin 300 mg PO BID -Given retained hardware, will need suppressive oral antibiotics after completing 6 weeks of IV antibiotics -Please arrange for follow-up with local infectious disease physician for outpatient management of antibiotics for PJI Consultation Information This patient recommendation is based on a telemedicine consult request which was completed asynchronously through chart review and information provided by the primary physician. The patient was not seen or examined today. The evaluation is consultative in nature and all patient care and treatment decisions can either be accepted or rejected by the patient's primary hospital-based treating physician using their own independent medical judgment for their patient. [facility] contact information: Please call [facility] [phone]. (Phone Number For Physician Use Only) Time Spent Reviewing Chart: 31+ minutes History of Present Illness Reason for Consultation: PJI Attending Physician: Adriano Delgado MD History of Present Illness 71 yo M with a history of DM2, HTN, HLD, hypothyroidism, L GOMEZ (06/08/22) who was directly admitted from ortho clinic on 06/28 due to drainage from the L hip surgical incision site, fevers, and chills. On presentation, labs showed WBC 12.01, Cr 2.6, ESR 31, CRP 29.31. He was taken the OR on 06/28 for I&D, and ball and liner exchange. Per operative note, there was a large purulent fluid pocket immediately upon cutting through skin and subcutaneous tissue, which was sent for culture. The femoral head and polyethylene liner were exchanged. The titanium shell of the acetabulum was scrubbed to remove any potential biofilm. Blood cultures were obtained, and the patient was started on empiric vancomycin and pip-tazo. ID was consulted for antibiotic recommendations. Allergies Allergy/AdvReac Type Severity Reaction Status Date / Time atorvastatin [From Lipitor] AdvReac Intermediate Muscle Pain Verified 06/08/22 05:44 Home Medications Medication Instructions Recorded Confirmed Type levothyroxine 25 mcg tablet 25 mcg PO QAM 05/18/22 06/28/22 History (Euthyrox) lisinopril 5 mg tablet (Zestril) 5 mg PO QAM 05/18/22 06/28/22 History metformin 500 mg tablet 1,000 mg PO BID 05/18/22 06/28/22 History omeprazole 40 mg capsule,delayed 40 mg PO QAM 05/18/22 06/28/22 History release rosuvastatin 20 mg tablet (Crestor) 20 mg PO HS 05/18/22 06/28/22 History sitagliptin phosphate 50 mg tablet 50 mg PO QAM 05/18/22 06/28/22 History (Januvia) diclofenac sodium 75 mg 75 mg PO BID post operative 06/09/22 Rx tablet,delayed release inflammation relief 30 days #60 tabs oxycodone 5 mg tablet 5 mg PO Q4H Post op pain control 06/09/22 Rx #28 tabs Patient History Medical History (Updated 06/28/22 @ 19:49 by Brian Mar MD) DM type 2 (diabetes mellitus, type 2) GERD (gastroesophageal reflux disease) History of prostate cancer Dx 2019 - s/p radiation History of rheumatic fever as a child HLD (hyperlipidemia) [place] (hard of hearing) HTN (hypertension) Hypothyroidism Osteoarthritis Surgical History (Updated 06/29/22 @ 12:31 by Haja Reeves PA-C) History of cholecystectomy History of colonoscopy History of prostate biopsy History of shoulder surgery Rt History of tonsillectomy Family History Other No family history of adverse response to anesthesia Social History Smoking Status: Never smoker Second Hand Exposure: No; Hx Alcohol Use: No Hx Substance Use: No Preferred Language: Yoruba Communication Ability: Effective Security Team Lead Required: No Beliefs That Will Affect Care: None Current Living Situation: Spouse Feels Safe at Home: Yes Assistive Devices: Walker Review of System Pt not seen Physical Exam Physical Exam: Pt not seen Results & Data ([place]) Vital Signs (Past 12 Hours) Vital Signs Temp Pulse Pulse Resp BP BP Pulse Ox 06/29/22 11:18 36.7 C 71 16 99/60 L 96 06/29/22 07:38 37.2 C 86 16 89/60 L 96 06/29/22 03:02 87 105/63 06/29/22 03:00 36.6 C 83 18 91/55 L 95 O2 Del Method 06/29/22 11:18 Room Air 06/29/22 07:38 Room Air 06/29/22 03:02 06/29/22 03:00 Room Air Laboratory Results Short CBC 06/28/22 06/29/22 Range/Units 14:08 06:56 WBC 12.01 H 11.12 H (4.8-10.8) K/ul Hgb 10.9 L 9.3 L (14.0-18.0) g/dl Hct 32.8 L 27.8 L (40.1-51.0) % Plt Count 265 237 (130-400) K/uL BMP 06/28/22 06/29/22 14:08 06:56 Sodium 137 138 Potassium 4.1 4.1 Chloride 103 107 Carbon Dioxide 24 24 BUN 45 H 39 H Creatinine 2.60 H 1.87 H D Glucose 115 H 133 H Calcium 9.4 8.4 L Cardiac Enzymes 06/29/22 Range/Units 06:56 Total Creatine Kinase 475 H (30-223) U/L Liver Function 06/28/22 Range/Units 14:08 Total Bilirubin 0.7 (0.2-1.0) mg/dl AST 15 (13-39) U/L ALT 19 (7-52) U/L Alkaline Phosphatase 42 (34-104) U/L Albumin 3.8 (3.4-5.0) gm/dl Urine 06/28/22 Range/Units 20:15 Urine Color Yellow Urine Appearance Cloudy A (Clear) Urine pH 5.0 (4.5-7.5) Ur Specific [place] 1.023 (1.000-1.030) Urine Protein 2+ H (Negative) Urine Glucose (UA) Negative (Negative) Diagnostic Findings Radiology Pelvis X-Ray 06/28/22 18:07 XR pelvis 1-2V routine CLINICAL HISTORY: In PACU - Post Surgical COMPARISON STUDY: Pelvis 06/08/2022. FINDINGS: There is again noted a left total arthroplasty. The hardware appears intact. No fracture or dislocation within the pelvis or hips. Soft tissue gas within the left hip consistent with expected postoperative change. IMPRESSION: Left total hip arthroplasty. No evidence for hardware complication. ACT 112: Negative or not required by law. Electronically signed by: Royal Garcia M.D. 06/28/2022 7:07 PM Microbiology 06/28 UCx: NG 06/28 BCx x2: pending 06/28 OR L hip 2) Deep Tissue Gram stain: rare GPCs Aerobic/anaerobic cx: pending 06/28 OR L hip 1) Superficial hip Gram stain: few GPCs Aerobic/anaerobic cx: Staph species Medications Administered Current Inpatient Medications Acetaminophen (Acetaminophen 500 Mg Tab) 1,000 mg PO Q8 GABRIELA Stop: 07/28/22 21:59 Last Admin: 06/29/22 12:51 Dose: 1,000 mg Al Hydrox/Mg Hydrox/Simethicone (Aluminum/Magnesium Susp 30 Ml Udc) 15 ml PO Q4H PRN PRN Reason: Heartburn Stop: 07/28/22 18:06 Aspirin (Aspirin 81 Mg Ectab) 81 mg PO BID GABRIELA Stop: 07/28/22 20:59 Last Admin: 06/29/22 07:44 Dose: 81 mg Bisacodyl (Bisacodyl 10 Mg Supp) 10 mg TN DAILY PRN PRN Reason: Constipation Stop: 07/28/22 18:06 Dextrose (Dextrose 50% 50 Ml Syringe) 25 - 50 ml IV UD PRN; Protocol PRN Reason: Hypoglycemia Protocol Stop: 07/28/22 18:59 Diphenhydramine HCl (Diphenhydramine 50 Mg/Ml Vial) 25 mg IV Q8H PRN PRN Reason: Itching Stop: 07/28/22 18:06 Docusate Sodium (Docusate Sodium 100 Mg Cap) 100 mg PO BID GABRIELA Stop: 07/28/22 20:59 Last Admin: 06/29/22 07:44 Dose: 100 mg Glucagon (Glucagon For Inj 1 Mg Vial) 1 mg IM UD PRN; Protocol PRN Reason: Hypoglycemia Protocol Stop: 07/28/22 18:59 Glucose (Glucose 40% Gel 15 Gm Tube) 15 - 30 gm PO UD PRN; Protocol PRN Reason: Hypoglycemia Protocol Stop: 07/28/22 18:59 Glucose (Glucose 10 Tab/Tube) 4 - 8 tab PO UD PRN; Protocol PRN Reason: Hypoglycemia Protocol Stop: 07/28/22 18:59 Hydromorphone HCl (Hydromorphone Inj 0.5 Mg/0.5 Ml Syr) 0.5 mg IV Q4H PRN PRN Reason: Pain or Pre PT Stop: 07/12/22 18:06 Piperacillin Sod/Tazobactam (Sod 3.375 gm/ Dextrose) 115 mls @ 28.75 mls/hr IV Q8H GABRIELA; Protocol Stop: 07/13/22 00:00 Last Infusion: 06/29/22 12:43 Dose: Infused Vancomycin HCl 1,250 mg/ (Sodium Chloride) 275 mls @ 200 mls/hr IV Q18H GABRIELA; Protocol Stop: 08/10/22 09:59 Last Infusion: 06/29/22 12:43 Dose: Infused Insulin Aspart (Insulin Aspart Per Unit) 0 units SC ACHS [facility] Stop: 07/28/22 18:59 Last Admin: 06/29/22 12:55 Dose: 6 units Insulin Glargine (Lantus Per Unit Charge) 0 units SQ HS [facility]; Protocol Stop: 07/29/22 20:59 Levothyroxine Sodium (Levothyroxine Sodium 25 Mcg Tablet) 25 mcg PO DAILYBB [facility] Stop: 07/29/22 06:29 Last Admin: 06/29/22 05:55 Dose: 25 mcg Magnesium Hydroxide (Magnesium Hydroxide Susp 30 Ml Udc) 30 ml PO Q6H PRN PRN Reason: Constipation Stop: 07/28/22 18:06 Metoclopramide HCl (Metoclopramide Hcl Inj 5 Mg/Ml 2 Ml Vial) 10 mg IV Q6H PRN PRN Reason: Nausea And Vomiting Stop: 07/28/22 18:06 Miscellaneous (Carbohydrates For Hypoglycemia ) 15 - 30 gm PO UD PRN PRN Reason: Hypoglycemia Treatment Stop: 07/28/22 18:59 Miscellaneous Information (Vancomycin Consult Active) 1 each N/A UD PRN PRN Reason: Consult Stop: 07/28/22 18:06 Miscellaneous Information (Pharmacy Glycemic Mgmt Consult) 1 each N/A UD PRN PRN Reason: Consult Stop: 07/28/22 18:11 Multivitamins (Multivitamin Tab) 1 tab PO QAM [facility] Stop: 07/29/22 08:59 Last Admin: 06/29/22 07:44 Dose: 1 tab Naloxone HCl (Naloxone Hcl 0.4 Mg/1 Ml Vial/Carp) 0.1 mg IV Q5M PRN PRN Reason: Oversedation/Resp Depression Stop: 07/28/22 18:06 Ondansetron HCl (Ondansetron Inj 2 Mg/Ml 2 Ml Vial) 4 mg IV Q6H PRN PRN Reason: Nausea And Vomiting Stop: 07/28/22 18:06 Oxycodone HCl (Oxycodone Hcl Ir 5 Mg Tab (Immediate Release)) 5 - 10 mg PO Q4H PRN PRN Reason: Pain or Pre PT Stop: 07/12/22 18:06 Pantoprazole Sodium (Pantoprazole 40 Mg Tab) 40 mg PO QAM [facility]; Protocol Stop: 07/29/22 08:59 Last Admin: 06/29/22 07:44 Dose: 40 mg Rosuvastatin Calcium (Rosuvastatin Calcium 20 Mg Tab) 20 mg PO [facility] Stop: 07/28/22 20:59 Last Admin: 06/28/22 20:42 Dose: 20 mg Sennosides (Senna 8.6 Mg Tab) 17.2 mg PO HS [facility] Stop: 07/28/22 20:59 Last Admin: 06/28/22 20:42 Dose: 17.2 mg Tamsulosin HCl (Tamsulosin Hcl 0.4 Mg Cap) 0.4 mg PO QAM PRN PRN Reason: UNABLE to void Stop: 07/28/22 18:11
[2022-06-29] MEDS: LANTUS PER UNIT CHARGE SQ SCH (21:09)
[2022-06-29] MEDS: SENNA 8.6 MG TAB PO SCH (21:16)
[2022-06-29] MEDS: ROSUVASTATIN CALCIUM 20 MG TAB PO SCH (21:17)
[2022-06-30] MEDS: PIPERACILLIN/TAZOBACTAM 3.375 GM in DEXTROSE 5% 100 ML IV SCH ×2 (00:52→07:49)
[2022-06-30] MEDS: VANCOMYCIN HCL 1,250 MG in SODIUM CHLORIDE 0.9% 250 ML IV SCH (04:20)
[2022-06-30] MEDS: LEVOTHYROXINE SODIUM 25 MCG TABLET PO SCH (05:57)
[2022-06-30] MEDS: ACETAMINOPHEN 500 MG TAB PO SCH ×3 (05:57→21:20)
[2022-06-30] MEDS: MULTIVITAMIN TAB PO SCH (07:49)
[2022-06-30] MEDS: DOCUSATE SODIUM 100 MG CAP PO SCH ×2 (07:49→19:44)
[2022-06-30] MEDS: ASPIRIN 81 MG ECTAB PO SCH ×2 (07:50→19:44)
[2022-06-30] MEDS: PANTOprazole 40 MG TAB PO SCH (07:50)
[2022-06-30 08:20] LABS: Hematocrit (blood only) 28.2 % (40.1-51.0); Hemoglobin 9.2 g/dl (14.0-18.0); Mean Corpuscular Hemoglobin 28.7 pg (25.0-34.0); Mean Corpuscular Hgb Conc 32.6 g/dL (32.0-36.0); Mean Corpuscular Volume 87.9 fL (80.0-100.0); Mean Platelet Volume 10.2 fL (9.4-12.4); Platelet Count 246 K/uL (130-400); RDW Coefficient of Variation 13.4 % (11.5-14.5); RDW Standard Deviation 43.5 fL (36.4-46.3); Red Blood Count 3.21 M/uL (4.63-6.08); White Blood Count 11.86 K/ul (4.8-10.8)
[2022-06-30 08:35] LABS: BUN Creatinine Ratio 17.9 (10-20); Calcium 9.1 mg/dl (8.5-10.1); Creatinine Clr Calc Pharmacy 43.2 ml/min; Est GFR (African American) 48.8 ml/min; Est GFR (Non-African American) 42.1 ml/min; Potassium 4.3 mmol/L (3.5-5.1)
[2022-06-30 08:36] LABS: Basophils # (auto) 0.05 K/uL (0-0.2); Basophils % (auto) 0.4 %; Eosinophils # (auto) 1.66 K/uL (0-0.50); Immature Granulocytes # (auto) 0.03 K/uL (0.00-0.02); Immature Granulocytes % (auto) 0.3 %; Lymphocytes # (auto) 1.09 K/uL (1.2-3.4); Lymphocytes % (auto) 9.2 %; Monocytes # (auto) 0.65 K/uL (0.24-0.82); Monocytes % (auto) 5.5 %; Neutrophils # (auto) 8.38 K/uL (1.4-6.5); Neutrophils % (auto) 70.6 %
--- NOTE | 2022-06-30 08:58 | Hospitalist Progress Note ---
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 with Dr Delgado on 06/28 Large purulent fluid pocket immediately on cutting through skin per operation note Procal 12.35, ESR 31 On Vanco/Zosyn WBC stable, remains afebrile OR cx w/ staph aureus, pansensitive BCx remain NGTS Discussed with ID this morning, recs for Ancef 2gm Q8H w/ rifampin 300mg BID x 6 weeks. Switched abx after discussion w/ pharmacy/ID this morning. DIscontinued Vanco/Zosyn, should help w/ renal function as well Discussed changes to secretions/orange/etc to not be alerted. After IV abx completed, possible cefadroxil 500mg BID w/ rifampin for additional 3 months vs d/c rifampin and continue cefadroxil for ~1 year Cr improved but still above baseline, ordered 500cc and hold lisinopril still (BP 119/71) Pending Cr on repeat/BP can consider resuming lisinopril in next 24-48hours PICC line to be placed today Pain control/bowel regimen/PT/OT per primary service PT/OT consulted DVT proph -- shelbi mauro, ASA Possible d/c in next 24 hours if home Abx to be arrange Alerted CM of IV abx selection for at d/c and will need outpatient ID in follow up. Primary service to provide rx. To have weekly CBC, CMP (2) S/P total left hip arthroplasty: Plan: Initial L GOMEZ done on 06/08/22 see above (3) Acute kidney injury: Plan: Suspect due to hypotension and dehydration, +/- NSAID use, lisinopril, +/- ATN NSAIDs (diclofenac) DISCONTINUED, DISCONTINUED toradol as ordered on admission. AVOID NSAIDs UA not appearing infected -- cx NEGATIVE Dolan w/ clear yellow urine draining Cr improved, but still not at baseline Ordered 500cc NSS, hold lisinopril for now, BP stable and likely could resume in next 24-48 hours pending repeat labs CK checked, slight elevation, improved on repeat. IVF as above. Likely from recent surgery BMP in AM (4) DM type 2 (diabetes mellitus, type 2): Plan: HbA1c with a.m. labs 6.8 On metformin/januvia at home Pharmacy on consult for glycemic management BSGs acceptable Monitor home meds at d/c if Cr back to baseline. (5) GERD (gastroesophageal reflux disease): Plan: Switch omeprazole to pantoprazole per hospital formulary (6) HTN (hypertension): Plan: Hold lisinopril in setting of CLARISA and low normal blood pressure Cr improving, not appearing overly dehydrated on exam, IVF d/c yesterday afternoon however Cr still elevated and additional 500cc NSS ordered. 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 Continue levothyroxine 25 mcg p.o. daily (8) HLD (hyperlipidemia): Plan: Rosuvastatin 20 mg p.o. at bedtime Plan Thank you for allowing hospitalist service to participate in the care of Mr Prado. Hospitalist service will follow along for now and check labs in AM but if Cr improved and IV abx arranged/PICC line, likely d/c tomorrow. If discharged today, would instruct patient to continue to hold his lisinopril for tomorrow and have repeat labs on Sunday to ensure stable prior to resuming his lisinopril unless BPs elevated outpatient Please call with any questions/concerns. Admission and Anticipated Discharge Date Admission Date: June 28, 2022 Subjective Patient evaluated this morning, doing well. Said he saw DJ from orthopedic this morning. Reports pain controlled. Passing gas, believes he will have BM today. Urine clear in dolan. Discussed OR cultures and discussed with ID provider and recs for Ancef 2gm IV q8 x 6 weeks plus rifampin. Discussed can change body secretion color to not be alarmed. Contacted pharmacy to change abx regimen and add rifampin. Ortho to have PICC placement today. CM alerted of IV abx and asked to arrange for ID outpatient follow up. No fever/chills, chest pain, shortness of breath, abdominal pain, nausea or vomiting. Questions/concerns addressed, hopefully will be able to have everything arranged for d/c tomorrow. Review of Systems Review of Systems: All systems reviewed & are unremarkable except as noted in HPI & below Physical Exam Physical Exam: General: WD/WN male sitting up in recliner, NAD HEENT: head normocephalic, atraumatic, mmm, trachea midline without deviation Resp: CTAB, no w/c, on room air CV: RRR, no m/r/g, no pitting edema/calf tenderness MSK/Neuro: dressing to L hip c/d/i, prevena without drainage noted, slightly tender along L hip incision site but without erythema/drainage noted : dolan draining clear yellow urine Psych: AOx3, pleasant and cooperative Results & Data Results & Data ([facility]) Vital Signs (Past 12 Hours) Vital Signs Temp Pulse Resp BP Pulse Ox O2 Del Method 06/30/22 07:56 37 C 74 18 119/71 96 Room Air Laboratory Results 06/30/22 06/30/22 06/30/22 Range/Units 12:23 08:25 07:35 WBC (4.8-10.8) K/ul RBC (4.63-6.08) M/uL Hgb (14.0-18.0) g/dl Hct (40.1-51.0) % MCV (80.0-100.0) fL MCH (25.0-34.0) pg MCHC (32.0-36.0) g/dL RDW Std Deviation (36.4-46.3) fL RDW Coeff of Lauren (11.5-14.5) % Plt Count (130-400) K/uL MPV (9.4-12.4) fL Immature Gran % (Auto) % Neut % (Auto) % Lymph % (Auto) % Ward % (Auto) % Eos % (Auto) % Baso % (Auto) % Neut # (Auto) (1.4-6.5) K/uL Lymph # (Auto) (1.2-3.4) K/uL Ward # (Auto) (0.24-0.82) K/uL Eos # (Auto) (0-0.50) K/uL Baso # (Auto) (0-0.2) K/uL Immature Gran # (Auto) (0.00-0.02) K/uL Sodium 138 (136-145) mmol/L Potassium 4.3 (3.5-5.1) mmol/L Chloride 106 (98-107) mmol/L Carbon Dioxide 27 (21-32) mmol/L Anion Gap 5 (3-11) BUN 29 H (6-23) mg/dl Creatinine 1.62 H (0.6-1.4) mg/dl Est Cr Clr Drug Dosing 43.2 ml/min Est GFR ( Amer) 48.8 ml/min Est GFR (Non-Af Amer) 42.1 ml/min BUN/Creatinine Ratio 17.9 (10-20) Glucose 146 H (70-99(Fasting)) mg/dl POC Glucose 188 H 156 H (70-99) mg/dl Calcium 9.1 (8.5-10.1) mg/dl Total Creatine Kinase 313 H (30-223) U/L 06/30/22 06/29/22 06/29/22 Range/Units 07:35 20:26 16:55 WBC 11.86 H (4.8-10.8) K/ul RBC 3.21 L (4.63-6.08) M/uL Hgb 9.2 L (14.0-18.0) g/dl Hct 28.2 L (40.1-51.0) % MCV 87.9 (80.0-100.0) fL MCH 28.7 (25.0-34.0) pg MCHC 32.6 (32.0-36.0) g/dL RDW Std Deviation 43.5 (36.4-46.3) fL RDW Coeff of Lauren 13.4 (11.5-14.5) % Plt Count 246 (130-400) K/uL MPV 10.2 (9.4-12.4) fL Immature Gran % (Auto) 0.3 % Neut % (Auto) 70.6 % Lymph % (Auto) 9.2 % Ward % (Auto) 5.5 % Eos % (Auto) 14.0 % Baso % (Auto) 0.4 % Neut # (Auto) 8.38 H (1.4-6.5) K/uL Lymph # (Auto) 1.09 L (1.2-3.4) K/uL Ward # (Auto) 0.65 (0.24-0.82) K/uL Eos # (Auto) 1.66 H (0-0.50) K/uL Baso # (Auto) 0.05 (0-0.2) K/uL Immature Gran # (Auto) 0.03 H (0.00-0.02) K/uL Sodium (136-145) mmol/L Potassium (3.5-5.1) mmol/L Chloride (98-107) mmol/L Carbon Dioxide (21-32) mmol/L Anion Gap (3-11) BUN (6-23) mg/dl Creatinine (0.6-1.4) mg/dl Est Cr Clr Drug Dosing ml/min Est GFR ( Amer) ml/min Est GFR (Non-Af Amer) ml/min BUN/Creatinine Ratio (10-20) Glucose (70-99(Fasting)) mg/dl POC Glucose 176 H 160 H (70-99) mg/dl Calcium (8.5-10.1) mg/dl Total Creatine Kinase (30-223) U/L PG Care Time/CCT Total # of Minutes Spent Total Time Spent with Patient: Total time spent is greater than 50% in coordination of care (as documented) at patient's floor/unit and/or counseling patient: Coding Level of Care Code 22954 Subseq Hosp Care Lvl 3 Diagnoses Infection of prosthetic total hip joint T84.59XA; Z96.649 S/P total left hip arthroplasty Z96.642 Acute kidney injury N17.9 DM type 2 (diabetes mellitus, type 2) E11.9 GERD (gastroesophageal reflux disease) K21.9 HTN (hypertension) I10 Hypothyroidism E03.9 HLD (hyperlipidemia) E78.5
[2022-06-30] MEDS ORDERED: SODIUM CHLORIDE 0.9% 500 ML IV SCH (09:00)
[2022-06-30] MEDS: INSULIN ASPART PER UNIT SC SCH ×4 (09:01→21:18)
--- NOTE | 2022-06-30 09:05 | Orthopedic Progress Note ---
Date of Service June 30, 2022 Assessment & Plan (1) Status post revision of total hip replacement: Plan: PT/OT Total hip precautions Ice with EZ wrap DVT prophylaxis with TEDS and Aspirin Pain control with PO meds IV ABX for infection (Zosyn and Vancomycin) Glycemic control and Vano Trough monitored by Pharmacy [facility] Medicine service monitoring Renal disease Consent signed for PICC line placement today ID consult done yesterday Cultures from hip grew Staph Aureus Abduction pillow use Prevena to be removed in our clinic 1 week from yesterday Case management is working on getting patient established with [facility] for the IV med and getting him set up with home health. If PICC line is placed today, we will plan on discharge later today. Admission and Anticipated Discharge Date Admission Date: June 28, 2022 Subjective This 71 yo M is day 2 s/p revision left GOMEZ with I&D. He is doing very well today. He hopes to get his PICC line in today so he can go home before the weekend. He states that he spoke with ID yesterday by virtual visit. His culture have grown Staph Aureus. ID recommended treatment with Vanco, Zosyn through the PICC and oral Rifampin. Case management is currently working on contacting home nursing and [facility] to supply the medications. Review of Systems Review of Systems: All systems reviewed & are unremarkable except as noted in Subjective Physical Exam Physical Exam: Left hip: No drainage in Prevena. Able to perform SLRT and actively dorsi/plantar flex foot. Quad strength 3/5. No pain with passive hip flexion, internal or external rotation. NV intact. Results & Data ([facility]) Vital Signs (Past 12 Hours) Vital Signs Temp Pulse Resp BP Pulse Ox O2 Del Method 06/30/22 07:56 37 C 74 18 119/71 96 Room Air Diagnostic Findings 06/30/22 06/30/22 06/30/22 Range/Units 08:25 07:35 07:35 WBC 11.86 H (4.8-10.8) K/ul RBC 3.21 L (4.63-6.08) M/uL Hgb 9.2 L (14.0-18.0) g/dl Hct 28.2 L (40.1-51.0) % MCV 87.9 (80.0-100.0) fL MCH 28.7 (25.0-34.0) pg MCHC 32.6 (32.0-36.0) g/dL RDW Std Deviation 43.5 (36.4-46.3) fL RDW Coeff of Lauren 13.4 (11.5-14.5) % Plt Count 246 (130-400) K/uL MPV 10.2 (9.4-12.4) fL Immature Gran % (Auto) 0.3 % Neut % (Auto) 70.6 % Lymph % (Auto) 9.2 % Brown % (Auto) 5.5 % Eos % (Auto) 14.0 % Baso % (Auto) 0.4 % Neut # (Auto) 8.38 H (1.4-6.5) K/uL Lymph # (Auto) 1.09 L (1.2-3.4) K/uL Brown # (Auto) 0.65 (0.24-0.82) K/uL Eos # (Auto) 1.66 H (0-0.50) K/uL Baso # (Auto) 0.05 (0-0.2) K/uL Immature Gran # (Auto) 0.03 H (0.00-0.02) K/uL Sodium 138 (136-145) mmol/L Potassium 4.3 (3.5-5.1) mmol/L Chloride 106 (98-107) mmol/L Carbon Dioxide 27 (21-32) mmol/L Anion Gap 5 (3-11) BUN 29 H (6-23) mg/dl Creatinine 1.62 H (0.6-1.4) mg/dl Est Cr Clr Drug Dosing 43.2 ml/min Est GFR ( Amer) 48.8 ml/min Est GFR (Non-Af Amer) 42.1 ml/min BUN/Creatinine Ratio 17.9 (10-20) Glucose 146 H (70-99(Fasting)) mg/dl POC Glucose 156 H (70-99) mg/dl Calcium 9.1 (8.5-10.1) mg/dl Total Creatine Kinase 313 H (30-223) U/L 06/29/22 06/29/22 06/29/22 Range/Units 20:26 16:55 11:47 WBC (4.8-10.8) K/ul RBC (4.63-6.08) M/uL Hgb (14.0-18.0) g/dl Hct (40.1-51.0) % MCV (80.0-100.0) fL MCH (25.0-34.0) pg MCHC (32.0-36.0) g/dL RDW Std Deviation (36.4-46.3) fL RDW Coeff of Lauren (11.5-14.5) % Plt Count (130-400) K/uL MPV (9.4-12.4) fL Immature Gran % (Auto) % Neut % (Auto) % Lymph % (Auto) % Brown % (Auto) % Eos % (Auto) % Baso % (Auto) % Neut # (Auto) (1.4-6.5) K/uL Lymph # (Auto) (1.2-3.4) K/uL Brown # (Auto) (0.24-0.82) K/uL Eos # (Auto) (0-0.50) K/uL Baso # (Auto) (0-0.2) K/uL Immature Gran # (Auto) (0.00-0.02) K/uL Sodium (136-145) mmol/L Potassium (3.5-5.1) mmol/L Chloride (98-107) mmol/L Carbon Dioxide (21-32) mmol/L Anion Gap (3-11) BUN (6-23) mg/dl Creatinine (0.6-1.4) mg/dl Est Cr Clr Drug Dosing ml/min Est GFR ( Amer) ml/min Est GFR (Non-Af Amer) ml/min BUN/Creatinine Ratio (10-20) Glucose (70-99(Fasting)) mg/dl POC Glucose 176 H 160 H 199 H (70-99) mg/dl Calcium (8.5-10.1) mg/dl Total Creatine Kinase (30-223) U/L
--- NOTE | 2022-06-30 09:18 | Infectious Disease Progress Nt ---
Date of Service June 30, 2022 Assessment & Plan (1) Infection of prosthetic total hip joint: (2) Acute kidney injury: Plan 71 yo M with a history of DM2, HTN, HLD, hypothyroidism, L GOMEZ (06/08/22) who was admitted on 06/28 due to drainage from the L hip surgical incision site, f harish, and chills, now s/p I&D and ball/liner exchange (06/28/22) for L hip PJI. On presentation, WBC 12, ESR 31, CRP 29.31.Per operative note, there was a large purulent fluid pocket immediately upon cutting through skin and subcutaneous tissue, which was sent for culture. The femoral head and polyethylene liner were exchanged. The titanium shell of the acetabulum was scrubbed to remove any potential biofilm.OR cultures are now growing MSSA. BCx are NGTD. Recommendations: -Discontinue vancomycin and pip-tazo -Will need PICC for 6 weeks of IV antibiotics -Start cefazolin 2 g IV q8h -Start rifampin 300 mg PO q12h. Please advise the patient that rifampin can change the color of body fluids to red/orange--includes urine, tears, sweat, etc. Rifampin interacts with many medications--if the patient starts any new medications while on rifampin, he should let his provider or pharmacist know. -Complete 6 weeks of IV cefazolin plus PO rifampin (06/28-08/08). -Check weekly CBC with diff, CMP while on cefazolin to monitor for antimicrobial toxicity -Afterwards, would switch to cefadroxil 500 mg PO q12h and rifampin 300 mg PO q12h for an additional 3 months -Subsequently, can stop rifampin and continue cefadroxil for ~1 year. After this, extension of antibiotic suppression can be considered after risk/benefit discussion with the patient -Please arrange for follow-up with local infectious disease physician for outpatient management of antibiotics for PJI -Will sign off. Please page the [facility] Call Center with further questions: . (Phone Number For Physician Use Only) Admission and Anticipated Discharge Date Admission Date: June 28, 2022 Subjective This patient recommendation is based on a telemedicine consult request which was completed asynchronously through chart review and information provided by the primary physician. The patient was not seen or examined today. The evaluation is consultative in nature and all patient care and treatment decisions can either be accepted or rejected by the patient's primary hospital-based treating physician using their own independent medical judgment for their patient. Both OR cultures growing MSSA WBC 11.86 Cr decreased to 1.62 Review of System Pt not seen Physical Exam Physical Exam: Pt not seen Results & Data ([facility]) Vital Signs (Past 12 Hours) Vital Signs Temp Pulse Resp BP Pulse Ox O2 Del Method 06/30/22 07:56 37 C 74 18 119/71 96 Room Air Laboratory Results Short CBC 06/30/22 Range/Units 07:35 WBC 11.86 H (4.8-10.8) K/ul Hgb 9.2 L (14.0-18.0) g/dl Hct 28.2 L (40.1-51.0) % Plt Count 246 (130-400) K/uL BMP 06/30/22 07:35 Sodium 138 Potassium 4.3 Chloride 106 Carbon Dioxide 27 BUN 29 H Creatinine 1.62 H Glucose 146 H Calcium 9.1 Cardiac Enzymes 06/30/22 Range/Units 07:35 Total Creatine Kinase 313 H (30-223) U/L Diagnostic Findings Microbiology Microbiology 06/28 UCx: NG 06/28 BCx x2: NGTD 06/28 OR L hip 2) Deep Tissue Gram stain: rare GPCs Aerobic/anaerobic cx: MSSA 06/28 OR L hip 1) Superficial hip Gram stain: few GPCs Aerobic/anaerobic cx:MSSA S aureus RX M.I.C. --- --------- Clindamycin S <=0.5 Daptomycin S <=0.5 Erythromycin S <=0.5 Oxacillin S 0.5 Tetracycline S <=4 Trimeth/Sulfa S <=0.5/9.5 Vancomycin S 2 Medications Administered Current Inpatient Medications Acetaminophen (Acetaminophen 500 Mg Tab) 1,000 mg PO Q8 GABRIELA Stop: 07/28/22 21:59 Last Admin: 06/30/22 05:57 Dose: 1,000 mg Al Hydrox/Mg Hydrox/Simethicone (Aluminum/Magnesium Susp 30 Ml Udc) 15 ml PO Q4H PRN PRN Reason: Heartburn Stop: 07/28/22 18:06 Aspirin (Aspirin 81 Mg Ectab) 81 mg PO BID GABRIELA Stop: 07/28/22 20:59 Last Admin: 06/30/22 07:50 Dose: 81 mg Bisacodyl (Bisacodyl 10 Mg Supp) 10 mg LA DAILY PRN PRN Reason: Constipation Stop: 07/28/22 18:06 Dextrose (Dextrose 50% 50 Ml Syringe) 25 - 50 ml IV UD PRN; Protocol PRN Reason: Hypoglycemia Protocol Stop: 07/28/22 18:59 Diphenhydramine HCl (Diphenhydramine 50 Mg/Ml Vial) 25 mg IV Q8H PRN PRN Reason: Itching Stop: 07/28/22 18:06 Docusate Sodium (Docusate Sodium 100 Mg Cap) 100 mg PO BID GABRIELA Stop: 07/28/22 20:59 Last Admin: 06/30/22 07:49 Dose: 100 mg Glucagon (Glucagon For Inj 1 Mg Vial) 1 mg IM UD PRN; Protocol PRN Reason: Hypoglycemia Protocol Stop: 07/28/22 18:59 Glucose (Glucose 40% Gel 15 Gm Tube) 15 - 30 gm PO UD PRN; Protocol PRN Reason: Hypoglycemia Protocol Stop: 07/28/22 18:59 Glucose (Glucose 10 Tab/Tube) 4 - 8 tab PO UD PRN; Protocol PRN Reason: Hypoglycemia Protocol Stop: 07/28/22 18:59 Hydromorphone HCl (Hydromorphone Inj 0.5 Mg/0.5 Ml Syr) 0.5 mg IV Q4H PRN PRN Reason: Pain or Pre PT Stop: 07/12/22 18:06 Piperacillin Sod/Tazobactam (Sod 3.375 gm/ Dextrose) 115 mls @ 28.75 mls/hr IV Q8H GABRIELA; Protocol Stop: 07/13/22 00:00 Last Admin: 06/30/22 07:49 Dose: 28.8 mls/hr Vancomycin HCl 1,250 mg/ (Sodium Chloride) 275 mls @ 200 mls/hr IV Q18H GABRIELA; Protocol Stop: 08/10/22 09:59 Last Infusion: 06/30/22 05:58 Dose: Infused Sodium Chloride (Nss) 500 mls @ 80 mls/hr IV .Q6H15M GABRIELA Stop: 06/30/22 15:14 Last Admin: 06/30/22 09:01 Dose: 80 mls/hr Insulin Aspart (Insulin Aspart Per Unit) 0 units SC ACHS [facility] Stop: 07/28/22 18:59 Last Admin: 06/30/22 09:01 Dose: 4 units Insulin Glargine (Lantus Per Unit Charge) 0 units SQ [facility]; Protocol Stop: 07/29/22 20:59 Last Admin: 06/29/22 21:09 Dose: 10 units Levothyroxine Sodium (Levothyroxine Sodium 25 Mcg Tablet) [facility] Stop: 07/29/22 06:29 Last Admin: 06/30/22 05:57 Dose: 25 mcg Magnesium Hydroxide (Magnesium Hydroxide Susp 30 Ml Udc) 30 ml PO Q6H PRN PRN Reason: Constipation Stop: 07/28/22 18:06 Metoclopramide HCl (Metoclopramide Hcl Inj 5 Mg/Ml 2 Ml Vial) 10 mg IV Q6H PRN PRN Reason: Nausea And Vomiting Stop: 07/28/22 18:06 Miscellaneous (Carbohydrates For Hypoglycemia ) 15 - 30 gm PO UD PRN PRN Reason: Hypoglycemia Treatment Stop: 07/28/22 18:59 Miscellaneous Information (Vancomycin Consult Active) 1 each N/A UD PRN PRN Reason: Consult Stop: 07/28/22 18:06 Miscellaneous Information (Pharmacy Glycemic Mgmt Consult) 1 each N/A UD PRN PRN Reason: Consult Stop: 07/28/22 18:11 Multivitamins (Multivitamin Tab) [address] [facility] Stop: 07/29/22 08:59 Last Admin: 06/30/22 07:49 Dose: 1 tab Naloxone HCl (Naloxone Hcl 0.4 Mg/1 Ml Vial/Carp) 0.1 mg IV Q5M PRN PRN Reason: Oversedation/Resp Depression Stop: 07/28/22 18:06 Ondansetron HCl (Ondansetron Inj 2 Mg/Ml 2 Ml Vial) 4 mg IV Q6H PRN PRN Reason: Nausea And Vomiting Stop: 07/28/22 18:06 Oxycodone HCl (Oxycodone Hcl Ir 5 Mg Tab (Immediate Release)) 5 - 10 mg PO Q4H PRN PRN Reason: Pain or Pre PT Stop: 07/12/22 18:06 Pantoprazole Sodium (Pantoprazole 40 Mg Tab) 40 mg PO QAM [facility]; Protocol Stop: 07/29/22 08:59 Last Admin: 06/30/22 07:50 Dose: 40 mg Rosuvastatin Calcium (Rosuvastatin Calcium 20 Mg Tab) 20 mg PO [facility] Stop: 07/28/22 20:59 Last Admin: 06/29/22 21:17 Dose: 20 mg Sennosides (Senna 8.6 Mg Tab) 17.2 mg PO [facility] Stop: 07/28/22 20:59 Last Admin: 06/29/22 21:16 Dose: 17.2 mg Tamsulosin HCl (Tamsulosin Hcl 0.4 Mg Cap) 0.4 mg PO QA PRN PRN Reason: UNABLE to void Stop: 07/28/22 18:11
[2022-06-30] MEDS: rifAMPin 300 MG CAPSULE PO SCH ×2 (10:14→19:43)
[2022-06-30] MEDS: ADVANCED PROBIOTIC 1250 MG CAPSULE PO SCH (10:14)
[2022-06-30] MEDS: ceFAZolin 2000MG 2,000 MG/15 ML SYR IV SCH ×2 (12:53→21:23)
--- NOTE | 2022-06-30 13:18 | Pharmacy Report ---
Pharmacy Glycemic Short Note 2 - Date of Service June 30, 2022 - Glycemic Short BSG Results (Last 24 hours): 06/29/22 06/29/22 06/30/22 16:55 20:26 07:35 Glucose 146 H POC Glucose 160 H 176 H 06/30/22 06/30/22 08:25 12:23 Glucose POC Glucose 156 H 188 H OUTPATIENT ANTIDIABETIC REGIMEN: * Januvia 50 mg PO daily * Metformin 1000 mg PO BIDM HbA1c 6.8% 06/29/22 ASSESSMENT: 06/30/22 * BSGs somewhat elevated yesterday, ranging 151-199 mg/dL * Received 10 untis of basal and 17 units of prandial/correctional bolus insulin * Antibiotics de-escalated to cefazolin and rifampin based on OR culture results (vancomycin/Zosyn discontinued) * Fasting BSG of 156 mg/dL, will allow for increased dose of basal this evening 06/29/22: * Patient admitted follow L hip revision. No steroids ordered, T2DM diet * CLARISA on admission, SCr is trending downward * Holding basal insulin for now, fasting this AM 151 mg/dL * Continue weight based stress of 2 novolog parameters PLAN FOR INPATIENT GLYCEMIC CONTROL: * Hold outpatient oral diabetes medications * Basal insulin * Lantus 10-15 units SC HS (see EHR for details) * Bolus insulin * NovoLog per scale ACHS or Q6hrs while NPO * Goal Range: Low 110 mg/dL - High 140 mg/dL * Correction Factor: 25 mg/dL/unit * Nutritional / Prandial insulin per carb ratio of 1 unit per 8 grams CHO consumed
[2022-06-30] MEDS: SENNA 8.6 MG TAB PO SCH (19:43)
[2022-06-30] MEDS: ROSUVASTATIN CALCIUM 20 MG TAB PO SCH (19:44)
[2022-06-30] MEDS: LANTUS PER UNIT CHARGE SQ SCH (21:18)
[2022-07-01] MEDS: ACETAMINOPHEN 500 MG TAB PO SCH ×3 (06:21→21:19)
[2022-07-01] MEDS: LEVOTHYROXINE SODIUM 25 MCG TABLET PO SCH (06:22)
[2022-07-01] MEDS: ceFAZolin 2000MG 2,000 MG/15 ML SYR IV SCH ×3 (06:22→21:18)
--- NOTE | 2022-07-01 07:50 | Hospitalist Progress Note ---
Date of Service July 01, 2022 Assessment & Plan (1) Infection of prosthetic total hip joint: Plan: POD#3 s/p left hip incision and drainage and revision total hip poly exchange and head by Dr Delgado on 06/28 Large purulent fluid pocket immediately on cutting through skin per operation note Prevena to remain in placed x 1 week, removed in office in follow up Procal 12.35, ESR 31 On Vanco/Zosyn initially, discussed with ID am 06/30 given staph aureus on cx from OR (BCx remain NGTD 48 hours) Switched to Ancef 2gm Q8H 06/30 w/ rifampin 300mg BID x 6 weeks Weekly labs CBC, CMP while on ABX *Added lactobacillus for probiotic, encouraged continued use at d/c After IV abx completed, recs possible cefadroxil 500mg BID w/ rifampin for additional 3 months vs d/c rifampin and continue cefadroxil for ~1 year PICC line placed by IV team Pain control/bowel regimen/PT/OT per primary service DVT proph -- shelbi mauro, ASA Rx provided to CM by primary service -- working on arranging home IV abx and outpatient ID follow up -- to be arranged hopefully for dc after AM dose of abx 07/02 and they will be there for his 2pm dose (2) S/P total left hip arthroplasty: Plan: Initial L GOMEZ done on 06/08/22 see above (3) Acute kidney injury: Plan: Suspect due to hypotension and dehydration, +/- NSAID use, lisinopril, +/- ATN NSAIDs (diclofenac) DISCONTINUED, DISCONTINUED toradol as ordered on admission. AVOID NSAIDs UA not appearing infected -- cx NEGATIVE Dolan w/ clear yellow urine draining -- will attempt d/c today Ordered 500cc NSS 06/30 as Cr still 1.62 and slightly dry on exam Cr improved to 1.43 today from 1.62 and continued to hold his lisinopril until tomorrow/push oral fluids. D/c dolan, monitor UOP Monitor BMP in AM but if Cr back to baseline and PO intake acceptable can resume --> If not, would recommend continued holding at home for another day or two and have repeat labs on Sunday w/ HH Of note, CK checked, slight elevation to 300s -normalized on repeat w/ IVF yesterday.. Likely from recent surgery (4) DM type 2 (diabetes mellitus, type 2): Plan: HbA1c with a.m. labs 6.8 On metformin/januvia at home Pharmacy on consult for glycemic management BSGs acceptable Monitor home meds at d/c if Cr back to baseline. (5) GERD (gastroesophageal reflux disease): Plan: Switch omeprazole to pantoprazole per hospital formulary (6) HTN (hypertension): Plan: Hold lisinopril in setting of CLARISA and low normal blood pressure Cr improving, not appearing overly dehydrated on exam, IVF d/c yesterday afternoon however Cr still elevated and additional 500cc NSS ordered. 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 Continue levothyroxine 25 mcg p.o. daily Would recommend repeating as outpatient if not done recently given Ck elevation on admit (8) HLD (hyperlipidemia): Plan: Rosuvastatin 20 mg p.o. at bedtime Plan Thank you for allowing hospitalist service to participate in the care of Mr Prado. Hospitalist service will follow along for AM chart check of kidney function/BP to see about resuming his lisinopril at discharge CM following and arranging for home infusion company to be there for 2pm dose t omorrow and hoping to d/c after AM dose 07/02 Weekly labs on abx Admission and Anticipated Discharge Date Admission Date: June 28, 2022 Supervising Physician Co-Signing Physician Notes chart reviewed and case discussed with PA. Agree with assessment and plan. Subjective eval this morning, doing well, back from bathroom w walker. laughing at our discussion yesterday about orange body fluids as he is having orange urine, not concerned given alerted day prior. no fever/chills, chest pain, shortness of breath or abdominal pain discussed CM to hopefully have everything arranged that he can do home after his dose of abx in the morning and infusion company to meet for his 2pm dose at bedside, updated cr back to baseline, can resume his lisinopril for tomorrow as long as PO intake continues to be good. no further questions/concerns Review of Systems Review of Systems: All systems reviewed & are unremarkable except as noted in HPI & below Physical Exam Physical Exam: General: WD/WN male walking back from bathroom, NAD, in room HEENT: head normocephalic, atraumatic, mmm, trachea midline without deviation Resp: CTAB, no w/c, on room air CV: RRR, no m/r/g, no pitting edema/calf tenderness GI: +BS/soft/NT : dolan draining clear yellow urine MSK/Neuro: dressing to L hip c/d/i, prevena without drainage noted, slightly tender along L hip incision site but without erythema/drainage noted, walking halls with walker without issue Psych: AOx3, pleasant and cooperative Results & Data Results & Data ([facility]) Vital Signs (Past 12 Hours) Vital Signs Temp Pulse Resp BP Pulse Ox O2 Del Method 06/30/22 22:31 37.1 C 72 16 149/77 H 97 Room Air Laboratory Results 07/01/22 07/01/22 07/01/22 Range/Units 12:13 08:35 08:35 WBC 8.94 (4.8-10.8) K/ul RBC 3.46 L (4.63-6.08) M/uL Hgb 10.3 L (14.0-18.0) g/dl Hct 30.4 L (40.1-51.0) % MCV 87.9 (80.0-100.0) fL MCH 29.8 (25.0-34.0) pg MCHC 33.9 (32.0-36.0) g/dL RDW Std Deviation 44.0 (36.4-46.3) fL RDW Coeff of Lauren 13.7 (11.5-14.5) % Plt Count 257 (130-400) K/uL MPV 10.1 (9.4-12.4) fL Immature Gran % (Auto) 0.6 % Neut % (Auto) 70.6 % Lymph % (Auto) 8.3 % Tyler % (Auto) 7.0 % Eos % (Auto) 13.2 % Baso % (Auto) 0.3 % Neut # (Auto) 6.31 (1.4-6.5) K/uL Lymph # (Auto) 0.74 L (1.2-3.4) K/uL Tyler # (Auto) 0.63 (0.24-0.82) K/uL Eos # (Auto) 1.18 H (0-0.50) K/uL Baso # (Auto) 0.03 (0-0.2) K/uL Immature Gran # (Auto) 0.05 H (0.00-0.02) K/uL Sodium 139 (136-145) mmol/L Potassium 4.0 (3.5-5.1) mmol/L Chloride 104 (98-107) mmol/L Carbon Dioxide 27 (21-32) mmol/L Anion Gap 8 (3-11) BUN 23 (6-23) mg/dl Creatinine 1.43 H (0.6-1.4) mg/dl Est Cr Clr Drug Dosing 48.9 ml/min Est GFR ( Amer) 56.7 ml/min Est GFR (Non-Af Amer) 48.9 ml/min BUN/Creatinine Ratio 16.1 (10-20) Glucose 142 H (70-99(Fasting)) mg/dl POC Glucose 224 H (70-99) mg/dl Calcium 9.5 (8.5-10.1) mg/dl Total Creatine Kinase 142 (30-223) U/L 07/01/22 06/30/22 06/30/22 Range/Units 08:25 20:38 17:12 WBC (4.8-10.8) K/ul RBC (4.63-6.08) M/uL Hgb (14.0-18.0) g/dl Hct (40.1-51.0) % MCV (80.0-100.0) fL MCH (25.0-34.0) pg MCHC (32.0-36.0) g/dL RDW Std Deviation (36.4-46.3) fL RDW Coeff of Lauren (11.5-14.5) % Plt Count (130-400) K/uL MPV (9.4-12.4) fL Immature Gran % (Auto) % Neut % (Auto) % Lymph % (Auto) % Tyler % (Auto) % Eos % (Auto) % Baso % (Auto) % Neut # (Auto) (1.4-6.5) K/uL Lymph # (Auto) (1.2-3.4) K/uL Tyler # (Auto) (0.24-0.82) K/uL Eos # (Auto) (0-0.50) K/uL Baso # (Auto) (0-0.2) K/uL Immature Gran # (Auto) (0.00-0.02) K/uL Sodium (136-145) mmol/L Potassium (3.5-5.1) mmol/L Chloride (98-107) mmol/L Carbon Dioxide (21-32) mmol/L Anion Gap (3-11) BUN (6-23) mg/dl Creatinine (0.6-1.4) mg/dl Est Cr Clr Drug Dosing ml/min Est GFR ( Amer) ml/min Est GFR (Non-Af Amer) ml/min BUN/Creatinine Ratio (10-20) Glucose (70-99(Fasting)) mg/dl POC Glucose 153 H 190 H 132 H (70-99) mg/dl Calcium (8.5-10.1) mg/dl Total Creatine Kinase (30-223) U/L PG Care Time/CCT Total # of Minutes Spent Total Time Spent with Patient: Total time spent is greater than 50% in coordination of care (as documented) at patient's floor/unit and/or counseling patient: Coding Level of Care Code 67098 Subseq Hosp Care Lvl 1 Diagnoses Infection of prosthetic total hip joint T84.59XA; Z96.649 S/P total left hip arthroplasty Z96.642 Acute kidney injury N17.9 DM type 2 (diabetes mellitus, type 2) E11.9 GERD (gastroesophageal reflux disease) K21.9 HTN (hypertension) I10 Hypothyroidism E03.9 HLD (hyperlipidemia) E78.5
[2022-07-01] MEDS: ADVANCED PROBIOTIC 1250 MG CAPSULE PO SCH (07:57)
[2022-07-01] MEDS: PANTOprazole 40 MG TAB PO SCH (07:58)
[2022-07-01] MEDS: MULTIVITAMIN TAB PO SCH (07:58)
[2022-07-01] MEDS: DOCUSATE SODIUM 100 MG CAP PO SCH ×2 (07:58→21:20)
[2022-07-01] MEDS: ASPIRIN 81 MG ECTAB PO SCH ×2 (07:58→21:20)
[2022-07-01] MEDS: rifAMPin 300 MG CAPSULE PO SCH ×2 (07:58→21:19)
[2022-07-01 08:58] LABS: Basophils # (auto) 0.03 K/uL (0-0.2); Basophils % (auto) 0.3 %; Eosinophils # (auto) 1.18 K/uL (0-0.50); Eosinophils % (auto) 13.2 %; Hematocrit (blood only) 30.4 % (40.1-51.0); Hemoglobin 10.3 g/dl (14.0-18.0); Immature Granulocytes # (auto) 0.05 K/uL (0.00-0.02); Immature Granulocytes % (auto) 0.6 %; Lymphocytes # (auto) 0.74 K/uL (1.2-3.4); Lymphocytes % (auto) 8.3 %; Mean Corpuscular Hemoglobin 29.8 pg (25.0-34.0); Mean Corpuscular Hgb Conc 33.9 g/dL (32.0-36.0); Mean Corpuscular Volume 87.9 fL (80.0-100.0); Mean Platelet Volume 10.1 fL (9.4-12.4); Monocytes # (auto) 0.63 K/uL (0.24-0.82); Neutrophils # (auto) 6.31 K/uL (1.4-6.5); Neutrophils % (auto) 70.6 %; Platelet Count 257 K/uL (130-400); RDW Coefficient of Variation 13.7 % (11.5-14.5); Red Blood Count 3.46 M/uL (4.63-6.08); White Blood Count 8.94 K/ul (4.8-10.8)
[2022-07-01 09:26] LABS: BUN Creatinine Ratio 16.1 (10-20); Calcium 9.5 mg/dl (8.5-10.1); Creatinine Clr Calc Pharmacy 48.9 ml/min; Est GFR (African American) 56.7 ml/min; Est GFR (Non-African American) 48.9 ml/min
[2022-07-01] MEDS: INSULIN ASPART PER UNIT SC SCH ×4 (09:36→21:32)
[2022-07-01] MEDS: ROSUVASTATIN CALCIUM 20 MG TAB PO SCH (21:19)
[2022-07-01] MEDS: SENNA 8.6 MG TAB PO SCH (21:19)
[2022-07-01] MEDS: LANTUS PER UNIT CHARGE SQ SCH (21:32)
[2022-07-02] MEDS: ceFAZolin 2000MG 2,000 MG/15 ML SYR IV SCH (06:07)
[2022-07-02] MEDS: LEVOTHYROXINE SODIUM 25 MCG TABLET PO SCH (06:07)
[2022-07-02] MEDS: ACETAMINOPHEN 500 MG TAB PO SCH (06:07)
[2022-07-02] MEDS: DOCUSATE SODIUM 100 MG CAP PO SCH (07:59)
[2022-07-02] MEDS: PANTOprazole 40 MG TAB PO SCH (07:59)
[2022-07-02] MEDS: MULTIVITAMIN TAB PO SCH (07:59)
[2022-07-02] MEDS: ADVANCED PROBIOTIC 1250 MG CAPSULE PO SCH (07:59)
[2022-07-02] MEDS: rifAMPin 300 MG CAPSULE PO SCH (08:00)
[2022-07-02] MEDS: ASPIRIN 81 MG ECTAB PO SCH (08:00)
[2022-07-02] MEDS: INSULIN ASPART PER UNIT SC SCH (08:46)
[2022-07-02 09:35] LABS: BUN Creatinine Ratio 16.9 (10-20); Calcium 9.6 mg/dl (8.5-10.1); Creatinine Clr Calc Pharmacy 51.4 ml/min; Est GFR (African American) 60.2 ml/min; Potassium 4.2 mmol/L (3.5-5.1)
--- NOTE | 2022-07-02 09:44 | Communication Note ---
Date of Service: July 02, 2022 Labs from AM w/ improvement of kidney function back to baseline. Alerted to have patient hold his lisinopril until tomorrow and push oral fluids at home/monitor BP. IF PO intake decreased, consider holding at home and monitoring blood pressure, but has had improvement of PO intake w/ treatment of infection and had pushed oral fluids 07/01 without need for additional IVF. Hospitalist service signed off. Continue abx at d/c as outlined in plan, weekly labs while on ABX Outpatient ID follow up for chronic immunosuppressive therapy outpatient to be arranged by [facility].
--- NOTE | 2022-07-03 12:42 | Discharge Summary ---
Date of Service July 03, 2022 Admission HPI Per Admitting Provider History of Present Illness (including history relevant to procedure): This 71-year-old male presents the clinic today for an evaluation of drainage from the distalmost aspect of his surgical incision site of the left hip. Patient is a little over 2 weeks status post total hip arthroplasty. He states that last night he noticed some slight seepage from the incision and had fever and chills. He states that just before coming into the clinic today for evaluation a large amount of fluid drained from the distal aspect of the incision. He states that he felt immediate relief of the pressure that he had his periods. He states that today he has no symptoms like he had yesterday. Patient was evaluated by Dr. Delgado we have decided to take him to the operating room later today for the above stated procedure. Review Of Systems: A 12 point review of systems is performed is unremarkable except for those things stated in the HPI past medical history. Past Medical History: Problems: Disorder of thyroid Dry skin Loss of hearing Arthritis Irregular heart beat Cancer Type 2 diabetes mellitus Hypertension Procedure History Procedure Procedure Date Comments Shoulder joint operations Unknown Allergies and Sensitivities: NKA Current Home Meds: (Last Updated 06/28 11:32) SITagliptin (Januvia 50 mg oral tablet) TAKE 1 TABLET BY MOUTH ONCE DAILY levothyroxine (Euthyrox 25 mcg (0.025 mg) oral tablet) TAKE 1 TABLET BY MOUTH ONCE DAILY ON AN EMPTY STOMACH lisinopril (lisinopril 5 mg oral tablet) TAKE 1 TABLET BY MOUTH ONCE DAILY metFORMIN (MetFORMIN (Eqv-Glucophage XR) 500 mg oral tablet, extended release) TAKE 4 TABLETS BY MOUTH ONCE DAILY omeprazole (omeprazole 40 mg oral delayed release capsule) 40 mg PO Daily rosuvastatin (rosuvastatin 20 mg oral tablet) 20 mg PO Daily Admission Exam Per Admitting Provider Physical Exam: (relevant to the procedure, including heart and lung evaluation) General: Alert and oriented x3 appropriate grooming and hygiene Eyes: Pupils are equal and reactive to light with accommodation. Extraocular lids are intact Throat: Deferred due to COVID-19 precautions Cardiac: Regular rate with irregular rhythm with no murmurs or gallops appreciated Lungs: Clear to auscultation throughout with no wheezing, rales or rhonchi Abdomen: Nonobese, nondistended, nontender with NABS Extremities: Left hip: Patient has no pain with passive flexion to 90 degrees. There is no pain with light passive internal or external hip rotation. There is a small opening to the distalmost aspect of the incision site but no drainage with palpation however patient does have a moderate sized hematoma just posterior to the mid incision site that is fluctuant. There is no active drainage. There is no ecchymosis or warmth. Patient is neurovascularly intact in the left lower extremity but does walk with a slight antalgic gait. Neuro: Cranial nerves II through XII are intact no motor or sensory deficit Skin: Normal appearance no open skin areas or discharge Principal Diagnosis Septic Hip s/p Left Total Hip Arthroplasty Discharge Exam Left hip: No drainage in Prevena. Able to perform SLRT and actively dorsi/plantar flex foot. Quad strength 3/5. No pain with passive hip flexion, internal or external rotation. NV intact. Discharge Data Allergies Allergy/AdvReac Type Severity Reaction Status Date / Time atorvastatin [From Lipitor] AdvReac Intermediate Muscle Pain Verified 06/08/22 05:44 Consultations 06/28/22 18:12 Consult Internal Medicine Routine 06/29/22 12:16 Consult Infectious Diseases Stat Procedures Performed Operation Date: 06/28/22 12:45 Actual Procedures p Left Hip Incision and Drainage(Left) - Adriano Delgado MD s Revision Total Hip Poly Exchange and Head(Left) - Adriano Delgado MD Hospital Course (1) Status post revision of total hip replacement: Patient had a 3 day stay following revision left arthroplasty with poly and femoral head exchange with Irrigation and Debridement. Cultures grew Staph Aureus. PICC line was place and patient will be on IV Ancef and oral Rifampin for the next 6 weeks. Labs will be checked weekly for that time (CBC, CMP, CRP and ESR). He will follow up in our clinic SunJul 05 for removal of his Prevena. PT/OT Total hip precautions Ice with EZ wrap DVT prophylaxis with TEDS and Aspirin Pain control with PO meds Appreciate Medicine service monitoring Renal disease PICC line placed on Sat AM and patient discharged on IV Ancef 2 gram q8hrs for next 6 weeks Will be on oral Rifampin 300 mg PO BID x 6 weeks Appreciate ID recommendations for ABX Abduction pillow use Prevena to be removed in our clinic SunJul 05. Home health will help with administration of ABX With questions contact our clinic at [phone] Total Time Total Time Spent Total Time Spent (In Minutes): 2 hours Discharge Plan Discharge Items Patient Disposition: Home - Home Health Services Reason For Visit: Post Surgical Care Discharge Diagnosis: Revision left total hip arthroplasty with irrigation and debridement Activity: As commented below Lifting: None Bathing: Keep incision dry Bathing Comment: May shower tomorrow Sexual Activity: Wait until after follow-up appointment Exercise/Sports: Wait until after follow-up appointment Driving/Machine Use: No driving until cleared by orthopedic surgeon Weightbearing: Left weightbearing Weightbearing Comment: as tolerated with walker assistance Non-emergency contact: Surgeon Call non-emergency contact if: you have any medication questions, your pain is not controlled, your temperature is above 101.5, your wound has increased drainage and your wound pain has increased Follow-up/Referrals: Lance May DO [Primary Care Provider] - Diet: Regular Addtl Attending Provider Instructions: Post-operative Instructions Dear Patient and Family/Friends, Before you are discharged from the hospital, it is important to know what to expect when you get home after surgery. To that end, we have created this sheet of discharge instructions which covers many commonly asked questions. Make sure you go through this sheet in its entirety with your nurse before you are discharged. Please note that we will go over the specifics of your surgery and recovery when you return for your first post-operative visit. Sincerely, Dr. Delgado Medications 1. Rifampin 300 mg: take 1 tab twice daily for 6 weeks 2. Cefazolin 2 grams: PICC line infusion every 8 hours x 6 weeks *Continue that Aspirin, and Oxycodone as previously instructed. If you need refills, just contact the clinic.* Pain Expect to be in a fair amount of pain after surgery. Remember, our goal is not to eliminate your pain, but to make it tolerable. It is a good idea to stay ahead of your pain by taking the medications you were prescribed once you get home. Typically, the pain starts improving 3-7 days after surgery. You should start weaning off the narcotic pain medication (oxycodone, hydrocodone, hydromorphone, morphine) as soon as your pain improves. Please call our office if your pain is not adequately controlled. Ice Ice your operative site at least 5 times a day for 15-30 minutes at a time. Make sure you have a thin cloth between the ice or cooling unit and your skin to prevent fox bite. This is especially important if you received a nerve block. Continue icing your operative site for the first 5-7 days after surgery, then as needed. Diet/Nausea/Vomiting Start by drinking clear liquids and eating crackers. If you can tolerate this, then you may resume your normal diet. If you feel nauseated or vomit, take Zofran/ondansetron (if prescribed). Please call our office if you have intractable nausea or vomiting, or, if after hours, you may go to the Emergency Room for help. Constipation Constipation is a common side effect of narcotic pain medication. If you have not had a bowel movement within 2 days after surgery, we recommend purchasing an over the counter laxative such as Milk of Magnesia, Dulcolax, or Miralax from a local pharmacy, and taking it as instructed. Call our clinic if any questions. Slings and Braces If you were placed in a sling or brace, it must be worn at all times, including sleep. You may remove your sling or brace for physical therapy, home exercises, and showering. The length of time you will be in your brace and range of motion restrictions depends on what surgery you had; these details will be reviewed at your first post-operative appointment. Weight bearing and Range of Motion. Do not bear any weight through your operative extremity immediately after surgery. If you had upper extremity surgery, do not lift anything with that arm. If you are in a knee brace, keep it locked in place until your follow-up. We will discuss your weight bearing, range of motion, and lifting restrictions in detail at your first post-operative appointment. Continuous Passive Motion (CPM) Machine If you were prescribed a CPM machine, it will start after your first post- operative appointment, at which time we will give you instructions on the range of motion settings and duration of treatment Physical therapy You will be given a prescription for physical therapy or occupational therapy at your first post-operative appointment. Typically, patients start therapy within 1 week of surgery Wound care and showering We will inspect your wound at your first post-operative visit, and may do a dressing change at that time. Most patients will be in a water-proof dressing that is removed 14 days after surgery. It is normal to see some dried blood on the dressing. Do not remove your dressing, paper strips or sutures yourself unless you are given permission. Showering is allowed the day after surgery. Do not scrub or remove any dressings. The wound should not be submerged underwater (i.e. in a bathtub or pool) until 4 weeks after surgery JONAH stockings If you were given white stockings, these are to be worn at all times except to shower (on both legs) for the first 2 weeks after surgery. Driving You may not drive while taking narcotic pain medication or while in a cast, splint, sling or brace. You, the patient, need to make the final determination about when you are safe to drive, however, the earliest you may consider driving after surgery is below: Hand/Wrist/Elbow Surgery: 3 days Shoulder Surgery: 2 weeks Hip,/Knee/Ankle Surgery: 4 weeks Fracture repair: 6 weeks Return to Work Your return to work depends on what surgery was done and what type of work you do. Please bring any paperwork your employer needs completed to your first post-operative visit. Also, bring a description of your job duties, as this hel ps us to understand what risks you may face at work. Travel Avoid long distance travel (greater than 1 hour) in airplanes and cars for the first 6 weeks after surgery. If you must travel, you need to have a Doppler ultrasound done before you travel to rule out a blood clot in your legs. Follow-up You should have a follow-up appointment already scheduled 1-2 days after surgery. If not, please contact our office to make this appointment before you leave the hospital. When to call the office It is normal to have swelling and bruising in the limb that was operated on. This will improve with time. It is also normal to have fevers for the first 2 days after surgery. Reasons you should call your doctor include: Uncontrolled pain; Nausea, vomiting, or constipation that does not improve with medication; Fevers over 101.5, chills, sweats; Drainage or bleeding from the wound; Foul odor; Spreading areas of redness; Any other concerns. 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 This was likely due to continued use of lisinopril for blood pressure, poor oral intake/dehydration, as well as possible use of the diclofenac used for post-op inflammation. I would AVOID diclofenac and rather have you use Tylenol and oxycodone as needed for pain and avoid NSAIDs (Diclofenac is an NSAID, Ibuprofen, Motrin, Aleve). Your kidney function has improved with use of IV fluids for dehydration and holding your lisinopril and your blood pressure has remained stable. Your kidney function is back to normal and you can continue to push oral fluids at home and can resume your lisinopril SUNDAY. Please follow up with your primary care provider to see about possibly decreasing this dose in the future as it can cause dehydration if you are not keeping up with enough oral hydration and may benefit from something else for BP control. Pending Studies at Discharge: No Stand-Alone Forms: My [facility], Smoking Cessation Medications and DC Order Prescriptions: New cefazolin 1 gram recon soln 2 g IV Q8H Qty: 25 0RF rifampin 300 mg capsule 300 mg PO Q12H Qty: 60 2RF Continued metformin 500 mg Tablet 1,000 mg PO BID omeprazole 40 mg Capsule,Delayed Release(Dr/Ec) 40 mg PO QAM levothyroxine [Euthyrox] 25 mcg Tablet 25 mcg PO QAM lisinopril [Zestril] 5 mg Tablet 5 mg PO QAM rosuvastatin [Crestor] 20 mg Tablet 20 mg PO HS Januvia 50 mg Tablet 50 mg PO QAM oxycodone 5 mg tablet 5 mg PO Q4H MDD Ongoing therapy Qty: 28 0RF Discontinued diclofenac sodium 75 mg tablet,delayed release (DR/EC) 75 mg PO BID 30 Days Qty: 60 1RF Discharge Orders: Discharge Order (Routine); Ordered 07/01/22 Ordered By: Miesha Tucker/Other Patient Handouts: Managing Type 2 Diabetes Admission Data Admit Date/Time: 06/28/22 13:11 Attending Provider: Adriano Delgado Admit Provider: Adriano Delgado Primary Care Provider: Lance May Other Providers: Fernando Carlson ; Jessy Padilla ; Brian Lowe ; True Gimenez ; Michael Thrasher ; Homer Villanueva ; Maximo Scott ; Isabela Guzman ; Sergey Branham ; Chrissy Roa ; Feliciano Lyman ; Quang Batista ; Gracie Tapia ; Bina Platt ; Opal Arce ; Yovani Mishra ; Omer Schulz ; Marimar Mauro ; Jessy Maldonado ; Jen Singer ; Apolinar Oconnor ; Brian Mar ; Yesenia Ronquillo ; Burak Pickens ; Jonel Cevallos ; Hannah Rodriguez ; Don De Jesus ; Antonina Swift ; Adriano Trimble ; Nilesh Fontenot ; Thai Mcclure ; Ryanne Ramirez ; Apolinar Patricio ; Jasmin Chowdhury ; Zulema Rogers ; Gus Gann ; Elly Fletcher ; Jose Conley ; Delmy Pulido ; Judith Pop ; Lisset Ratliff ; Tor Vázquez ; Meri Munson ; [facility] ; [facility] Other Interventions: Discharge Summary Assessment (RN) Last Done: 07/02/22 09:34
== END 2022-07-02 11:54 | disposition home health service (06) | DRG 467 ==
LOC: 3W 13:11
PROC: M.IDHIP (2022-06-28 12:45)

== ENCOUNTER 2022-08-03 06:20 | Observation (INO) ==
--- NOTE | 2022-08-01 12:10 | History & Physical Report ---
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 Delgado. Risks and complications of the procedure such as: Infection, bleeding, pain, scarring, nerve blood vessel damage, weakness, wound problems, stiffness, incomplete relief of symptoms, hardware failure, hardware loosening, wear, fracture, tendon or ligament injury, dislocation, leg length inequality, blood clots, Embolism, heart attack, stroke and were explained to the patient at her visit today. Informed consent to perform the procedure was obtained. Patient also understands risks of proceeding with surgical intervention during the COVID-19 pandemic. Currently patient is asymptomatic. Patient has not been in contact with anyone positive for the virus so preoperative testing is not indicated. Orders for a CBC, CRP and a sed rate provided to the patient he will obtain them at the laboratory upstairs. He is scheduled to meet with Dr. Gomez his infectious disease doctor later this afternoon. His EKG, chest x-ray or laboratory studies are all up-to-date. Patient may need to continue Ancef infusions through his PICC line as well as oral rifampin following the surgery. Hopefully we will plan on having the patient be discharged on Sunday. Patient verbalizes understanding of all information provided during today's visit. He thanks for the care that he received. If he has questions or concerns that should arise prior to his surgery, he will contact clinic. This chart was completed utilizing [employer] voice recognition software. Grammatical errors, random word insertions, pronoun errors, and in complete sentences are an occasional consequence of the system. Any questions or concerns about the content, text, or information contained within the body of this dictation should be addressed directly to the physician for clarification. History of Present Illness Chief Complaint: Chief Complaint: Periprosthetic left hip infection Primary Care Provider: Lance May DO History of Present Illness (including history relevant to procedure): This 71-year-old male presents to clinic today with his family for his preoperative history and physical. This will be the second time that we have done irrigation and debridement following his initial total hip arthroplasty surgery performed back on June 03. Patient states that he has been getting infusions of Ancef through his PICC line and has been taking oral rifampin since the last procedure. He states that he still continues to have some drainage from the distalmost aspect of the incision site. He states his changes the dressing daily. He describes the discharge as a clear bloody fluid. His son who is a nurse tried to express fluid but only gets a small amount. However, he states that the area is fluctuant and a darker red color than the remaining incision site. Patient denies fever, chills, sweats, nausea, vomiting or any pain. He is able to walk with the assistance of his cane without issue. Review Of Systems: A 12 point review of systems is performed and is unremarkable except for those things stated in the HPI past medical history. Past Medical History: Problems: Left hip postoperative wound infection Preop examination S/P revision of total hip Hematoma of left hip Disorder of thyroid Dry skin Loss of hearing Arthritis Irregular heart beat Cancer Type 2 diabetes mellitus Hypertension Procedure History Procedure Procedure Date Comments Shoulder joint operations Unknown Allergies and Sensitivities: NKA Current Home Meds: (Last Updated 08/01 11:28) SITagliptin (Januvia 50 mg oral tablet) TAKE 1 TABLET BY MOUTH ONCE DAILY aspirin (aspirin 81 mg oral capsule) BID ceFAZolin (ceFAZolin 1 g injection) 1 g IM q8h levothyroxine (Euthyrox 25 mcg (0.025 mg) oral tablet) TAKE 1 TABLET BY MOUTH ONCE DAILY ON AN EMPTY STOMACH metFORMIN (MetFORMIN (Eqv-Glucophage XR) 500 mg oral tablet, extended release) TAKE 4 TABLETS BY MOUTH ONCE DAILY omeprazole (omeprazole 40 mg oral delayed release capsule) 40 mg PO Daily rifAMPin (rifAMPin 300 mg oral capsule) TAKE 1 CAPSULE BY MOUTH EVERY 12 HOURS rosuvastatin (rosuvastatin 20 mg oral tablet) 20 mg PO Daily Allergies Allergy/AdvReac Type Severity Reaction Status Date / Time atorvastatin [From Lipitor] AdvReac Intermediate Muscle Pain Verified 06/08/22 05:44 Home Medications Medication Instructions Recorded Confirmed Type levothyroxine 25 mcg tablet 25 mcg PO QAM 05/18/22 06/28/22 History (Euthyrox) lisinopril 5 mg tablet (Zestril) 5 mg PO QAM 05/18/22 06/28/22 History metformin 500 mg tablet 1,000 mg PO BID 05/18/22 06/28/22 History omeprazole 40 mg capsule,delayed 40 mg PO QAM 05/18/22 06/28/22 History release rosuvastatin 20 mg tablet (Crestor) 20 mg PO HS 05/18/22 06/28/22 History sitagliptin phosphate 50 mg tablet 50 mg PO QAM 05/18/22 06/28/22 History (Januvia) oxycodone 5 mg tablet 5 mg PO Q4H Post op pain control 06/09/22 Rx #28 tabs cefazolin 1 gram intravenous 2 g IV Q8H #25 ea 07/02/22 Rx solution rifampin 300 mg capsule 300 mg PO Q12H #60 caps 07/02/22 Rx Past Med/Surg History Medical History DM type 2 (diabetes mellitus, type 2) GERD (gastroesophageal reflux disease) History of prostate cancer Dx 2019 - s/p radiation History of rheumatic fever as a child HLD (hyperlipidemia) [place] (hard of hearing) HTN (hypertension) Hypothyroidism Osteoarthritis Surgical History History of cholecystectomy History of colonoscopy History of prostate biopsy History of shoulder surgery Rt History of tonsillectomy Family History Other No family history of adverse response to anesthesia Social History Smoking Status: Never smoker Second Hand Exposure: No; Hx Alcohol Use: No Hx Substance Use: No Preferred Language: Yoruba Communication Ability: Effective Mems Process Engineer Required: No Beliefs That Will Affect Care: None Current Living Situation: Spouse Feels Safe at Home: Yes Assistive Devices: Walker Review of Systems All systems reviewed & are unremarkable except as noted in Subjective Physical Exam Physical Exam: General: Alert and oriented x3 appropriate grooming and hygiene Eyes: Pupils are equal and reactive to light with accommodation. Extraocular lids are intact Throat: Deferred due to COVID-19 precautions Cardiac: Regular rate with irregular rhythm with no murmurs or gallops appreciated Lungs: Clear to auscultation throughout with no wheezing, rales or rhonchi Abdomen: Nonobese, nondistended, nontender with NABS Extremities: Left hip: Patient has no pain with passive flexion to 90 degrees. There is no pain with light passive internal or external hip rotation. There is a small opening to the distalmost aspect of the incision site with a small amount of serosanguineous drainage with palpation however patient does have an area of fluctuance that is approximately 3 cm x 2-1/2 cm. Skin over this area is pink in color.. There is no active drainage. There is no ecchymosis or warmth. Patient is neurovascularly intact in the left lower extremity but does walk with a slight antalgic gait. Neuro: Cranial nerves II through XII are intact no motor or sensory deficit Skin: Normal appearance no open skin areas or discharge
--- NOTE | 2022-08-01 15:50 | Anesthesiology Consultation ---
Date of Service August 01, 2022 History Surgery Operation Date: 08/03/22 09:00 Proposed Procedures p Irrigation and Debridement - Adriano Delgado MD s Left Total Hip Arthroplasty with Possible Polyethylene and Femoral Head Exchange - Adriano Delgado MD Height/Weight Height: 5 ft 11 in Weight: 82.871 kg Allergies Allergy/AdvReac Type Severity Reaction Status Date / Time atorvastatin [From Lipitor] AdvReac Intermediate Muscle Pain Verified 08/01/22 14:26 Medications Home Medications Medication Instructions Recorded Confirmed Last Taken levothyroxine 25 mcg tablet 25 mcg PO QAM 05/18/22 08/01/22 06/08/22 03:00 (Euthyrox) lisinopril 5 mg tablet (Zestril) 5 mg PO QAM 05/18/22 08/01/22 06/07/22 04:00 metformin 500 mg tablet 1,000 mg PO BID 05/18/22 08/01/22 06/07/22 16:00 omeprazole 40 mg capsule,delayed 40 mg PO QAM 05/18/22 08/01/22 06/08/22 03:00 release rosuvastatin 20 mg tablet (Crestor) 20 mg PO HS 05/18/22 08/01/22 06/07/22 16:00 sitagliptin phosphate 50 mg tablet 50 mg PO QAM 05/18/22 08/01/22 06/07/22 04:00 (Januvia) oxycodone 5 mg tablet 5 mg PO Q4H Post op pain control 06/09/22 08/01/22 Unknown #28 tabs cefazolin 1 gram intravenous 2 g IV Q8H #25 ea 07/02/22 08/01/22 Unknown solution rifampin 300 mg capsule 300 mg PO Q12H #60 caps 07/02/22 08/01/22 Unknown Past Medical History Medical History DM type 2 (diabetes mellitus, type 2) GERD (gastroesophageal reflux disease) History of prostate cancer Dx 2019 - s/p radiation History of rheumatic fever as a child HLD (hyperlipidemia) [place] (hard of hearing) HTN (hypertension) Hypothyroidism Osteoarthritis Past Family History Family History Other No family history of adverse response to anesthesia Past Surgical History Surgical History History of cholecystectomy History of colonoscopy History of incision and drainage irrigation and debridement lt hip History of prostate biopsy History of shoulder surgery Rt History of tonsillectomy History of total left hip arthroplasty Social History Smoking Status: Never smoker Do You Dip or Chew Tobacco: Yes (hx-quit years ago) Hx Alcohol Use: No Hx Substance Use: No substance use type: does not use
--- NOTE | 2022-08-02 08:54 | Anesthesiology Consultation ---
Date of Service August 02, 2022 Assessment & Plan Chart Review Chart Review: Acceptable Risk for Surgery and Patient NOT seen in Pre Admission Testing History Surgery Operation Date: 08/03/22 09:00 Proposed Procedures p Irrigation and Debridement - Adriano Delgado MD s Left Total Hip Arthroplasty with Possible Polyethylene and Femoral Head Exchange - Adriano Delgado MD Height/Weight Height: 5 ft 11 in Weight: 82.871 kg Allergies Allergy/AdvReac Type Severity Reaction Status Date / Time atorvastatin [From Lipitor] AdvReac Intermediate Muscle Pain Verified 08/01/22 14:26 Medications Home Medications Medication Instructions Recorded Confirmed Last Taken levothyroxine 25 mcg tablet 25 mcg PO QAM 05/18/22 08/01/22 06/08/22 03:00 (Euthyrox) lisinopril 5 mg tablet (Zestril) 5 mg PO QAM 05/18/22 08/01/22 06/07/22 04:00 metformin 500 mg tablet 1,000 mg PO BID 05/18/22 08/01/22 06/07/22 16:00 omeprazole 40 mg capsule,delayed 40 mg PO QAM 05/18/22 08/01/22 06/08/22 03:00 release rosuvastatin 20 mg tablet (Crestor) 20 mg PO HS 05/18/22 08/01/22 06/07/22 16:00 sitagliptin phosphate 50 mg tablet 50 mg PO QAM 05/18/22 08/01/22 06/07/22 04:00 (Januvia) oxycodone 5 mg tablet 5 mg PO Q4H Post op pain control 06/09/22 08/01/22 Unknown #28 tabs cefazolin 1 gram intravenous 2 g IV Q8H #25 ea 07/02/22 08/01/22 Unknown solution rifampin 300 mg capsule 300 mg PO Q12H #60 caps 07/02/22 08/01/22 Unknown Past Medical History Medical History DM type 2 (diabetes mellitus, type 2) GERD (gastroesophageal reflux disease) History of prostate cancer Dx 2019 - s/p radiation History of rheumatic fever as a child HLD (hyperlipidemia) [place] (hard of hearing) HTN (hypertension) Hypothyroidism Osteoarthritis Past Family History Family History Other No family history of adverse response to anesthesia Past Surgical History Surgical History History of cholecystectomy History of colonoscopy History of incision and drainage irrigation and debridement lt hip History of prostate biopsy History of shoulder surgery Rt History of tonsillectomy History of total left hip arthroplasty Social History Smoking Status: Never smoker Do You Dip or Chew Tobacco: Yes (hx-quit years ago) Hx Alcohol Use: No Hx Substance Use: No substance use type: does not use
[~2022-08-03 06:20] MED LIST changes: +LACTATED RINGER'S 1,000 ML IV SCH; +LR 500ML BOLUS, THEN 15ML/HR IV SCH; +ONDANSETRON INJ 2 MG/ML 2 ML VIAL IV SCH; +ROPIVACAINE 0.5% HCL/PF 150 MG, BUPIVACAINE 0.75% MPF 20 ML, EPINEPHrine 0.15 MG, Ketor... INFIL SCH
[2022-08-03] MEDS ORDERED: BUPIVACAINE 0.5 % 5 MG/1 ML PF 10ML VIAL ONE (06:27)
[2022-08-03] MEDS ORDERED: fentaNYL citrate 100 MCG/2 ML VIAL ONE (07:29)
[2022-08-03] MEDS ORDERED: MIDAZOLAM HCL 1 MG/ML 2ML VIAL ONE (07:29)
[2022-08-03] MEDS ORDERED: PROPOFOL IV EMULSION 10 MG/ML 20 ML VIAL IV ONE ×2 (07:30→11:50)
[2022-08-03] MEDS ORDERED: ONDANSETRON INJ 2 MG/ML 2 ML VIAL ONE (07:30)
[2022-08-03] MEDS ORDERED: LIDOCAINE 2% MPF LOCAL 5 ML VIAL INFIL ONE (07:30)
--- NOTE | 2022-08-03 08:38 | History & Physical Bridge Note ---
Date of Service August 03, 2022 History & Physical Bridge Note I have examined the patient, reviewed the History & Physical and in the interval since the performance of the History & Physical I have noted the following changes of clinical significance: no changes noted
[2022-08-03] MEDS ORDERED: HYDROmorphone INJ 1 MG/ML SYRINGE IV PRN (08:47)
[2022-08-03] MEDS ORDERED: ePHEDrine sulfate 50 MG/ML AMP IV PRN (08:47)
[2022-08-03] MEDS ORDERED: ATROPINE SULFATE 0.1 MG/ML 10ML SYR IV PRN (08:47)
[2022-08-03] MEDS ORDERED: KETOROLAC 30 MG/ML VIAL IV PRN (08:47)
[2022-08-03] MEDS ORDERED: VANCOMYCIN HCL 1000MG/20ML VIAL ONE (09:30)
[2022-08-03] MEDS ORDERED: TRANEXAMIC ACID / 0.7% NACL 1000MG/100ML BAG IV ONE (09:57)
[2022-08-03] MEDS ORDERED: PHENYLEPHRINE HCL 10 MG/ML VIAL ONE (10:06)
[2022-08-03] MEDS ORDERED: ePHEDrine sulfate 50 MG/ML AMP ONE (10:14)
--- NOTE | 2022-08-03 12:12 | Operative Report ---
Post Operative Report Pre & Post Diagnosis Operation Date: 08/03/22 09:00 Pre-Op Diagnosis: Infected Left total hip arthroplasty Post-Op Diagnosis: Infected Left total hip arthroplasty I identified the patient and participated in the time-out.: Yes Procedure Operation Date: 08/03/22 09:00 Actual Procedures p Left Total Hip Arthroplasty with Polyethylene and Femoral Head Exchange(Left) - Adriano Delgado MD s Irrigation and Debridement(Left) - Adriano Delgado MD Surgeon Adriano Delgado MD Group Captain ROSALIO Reeves PA-C. No resident or fellow was available to assist. Estimated Blood Loss 200 Findings Consistent with Post-Op Diagnosis Fluids 1300 cc Specimens 4 sets of cultures were sent from the hip. Anesthesia Type Spinal MAC Complications none Disposition Disposition: Recovery Room Indications 71-year-old male with medical history of diabetes, status post left total hip arthroplasty on June 08, 2022. Unfortunately he developed an infection of his wound and was brought back to the main operating room on June 28, 2022 for irrigation and debridement and polyethylene and femoral head exchange. Intraoperative cultures grew out methicillin sensitive staph aureus. Patient has been on oral rifampin and IV Ancef through a PICC line since his last surgery. We have been following him closely. Unfortunately does continue to have drainage from the midportion of his wound. Inflammatory labs remain elevated. Despite this he has had minimal symptoms in terms of pain. No fevers or chills. Because of his prolonged wound drainage I discussed his case with my colleagues at who specialize in total joint arthroplasty. They recommended a second irrigation and debridement and femoral head and polyethylene exchange before offering him an explantation and placement of an antibiotic spacer I had a long discussion with the patient about performing a second irrigation and debridement with to treat the infection. He understood this only has probably a 50% chance risk of being successful. He elected to proceed with the surgery. All questions were answered. Informed consent was signed. Description of Procedure Patient was identified in the preoperative holding area where his surgical site was marked. He given a spinal anesthetic, then was brought back to the main operating room was placed on the operating table. He was then carefully moved in the lateral decubitus position. Axillary roll was placed. All bony prominences were padded. Perioperative antibiotics were administered. He was prepped and draped in the usual sterile fashion. Prior to incision a multidiscipline timeout was called. All in the room were in agreement. We began by opening up his previous incision and extending this distally another 2 cm. Immediately upon incising through the area of draining skin purulent appearing fluid was encountered. This was swabbed for culture and passed off. I then ellipsed out the abnormal appearing skin around the area of wound drainage. We then switched to electrocautery and continued our dissection. PDS sutures in the subcutaneous tissues were removed. There was a hole in the fascia that tracked down into the joint. This was also swabbed and sent for culture. The fascia was then opened up. To facilitate exposure I did release the gluteal sling in its upper 2 cm. Charnley bow was placed. The joint was inspected and there was fibrinous infected appearing tissue along the lining of the joint. This was sent for tissue cultures x2 giving us a total of 4 sets of cultures from the wound. Next, an aggressive synovectomy was performed around the hip joint including the effective joint space along the undersurface of the fascia. The hip was dislocated and the femoral head was removed. The acetabulum was exposed and the polyethylene liner was extracted. I then used a scrub brush to vigorously scrub the acetabular shell as well as the exposed metal of the femur. Once this was complete the wound was irrigated out with a total of 6 L of dilute Betadine solution. This was done by injecting 118 cc of 7.5% Betadine solution into each 3 L bag of fluid. Once this was complete and acetabular trial component was inserted, which was a +4, 10 degree face changing liner to match his previous component, as well as the femoral head trial. I was concerned about instability so I elected to upsize his femoral head to a +9 offset from a +5, stability exam showed his leg lengths to be reasonably symmetric, there is no impingement in extension and external rotation. Flexion at 90 degrees could be internally rotated 30 degrees before levering out of the socket. An Ioban was placed over the wound and then the drapes were completely taken down and the extremity was reprepped and redraped. All scrub personnel remove their gowns 3 scrubbed and gowned for the second portion of the procedure. A new 3 L bag of normal saline was used to irrigate out the wound. The trial components were removed. The acetabulum was exposed. An apex hole shale planer operator helper was placed and the new acetabular liner was opened up. This matched his previous liner which was a 56 outer diameter with a 36 inner diameter +4 offset 10 degree face changing liner. This was impacted down into position. Locking mechanism was checked to ensure that it had engaged which it had. A new 36 mm ceramic femoral head with a +8.5 offset was then impacted down onto the trunnion. The hip was atraumatically reduced. We finished irrigating out with our third 3 L bag of normal saline. The posterior capsular layer was sutured to the superior capsule using #1 PDS. We did not get a great repair because of the edema within the tissues. Stimulant beads were then fashioned on the back table using 2 g of vancomycin. These were placed deep to the fascia including the inferior aspect of the joint. Another 1 g of vancomycin powder was then sprinkled below the fascia. Fascia was then closed using a looped #1 PDS suture. Skin was closed using 2-0 Prolene sutures in interrupted fashion. A Prevena wound VAC was then placed. Patient was carefully rolled onto the hospital bed and transferred recovery room in stable condition. Postoperative course: Patient will continue on IV Ancef through his PICC line as well as oral rifampin. Aspirin for DVT prophylaxis. We will carefully follow his kidney function given the vancomycin being delivered topically locally in his wound. We will consult with infectious diseases regarding long-term antibiotic treatment plan for him. I attest to the content of the Intraoperative Record and any orders documented therein. Any exceptions are noted below.
[2022-08-03] MEDS ORDERED: ONDANSETRON INJ 2 MG/ML 2 ML VIAL IV PRN (12:21)
[2022-08-03] MEDS ORDERED: TAMSULOSIN HCL 0.4 MG CAP PO PRN (12:21)
[2022-08-03] MEDS ORDERED: diphenhydrAMINE 50 MG/ML VIAL IV PRN (12:21)
[2022-08-03] MEDS ORDERED: MAGNESIUM HYDROXIDE SUSP 30 ML UDC PO PRN (12:21)
[2022-08-03] MEDS ORDERED: bisacodyL 10 MG SUPP PR PRN (12:21)
[2022-08-03] MEDS ORDERED: METOCLOPRAMIDE HCL INJ 5 MG/ML 2 ML VIAL IV PRN (12:21)
[2022-08-03] MEDS ORDERED: ALUMINUM/MAGNESIUM SUSP 30 ML UDC PO PRN (12:21)
[2022-08-03] MEDS ORDERED: NALOXONE HCL 0.4 MG/1 ML VIAL/CARP IV PRN (12:21)
[2022-08-03] MEDS ORDERED: HYDROmorphone INJ 0.5 MG/0.5 ML SYR IV PRN (12:21)
[2022-08-03] MEDS ORDERED: oxyCODONE HCL IR 5 MG TAB (IMMEDIATE RELEASE) PO PRN (12:21)
--- NOTE | 2022-08-03 12:21 | Operative Report ---
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 Post-Op Diagnosis: Infected Left total hip arthroplasty. I identified the patient and participated in the time-out.: Yes Procedure Operation Date: 08/03/22 09:00 Actual Procedures p Left Total Hip Arthroplasty with Polyethylene and Femoral Head Exchange(Left) - Adriano Delgado MD s Irrigation and Debridement(Left) - Adriano Delgado MD Surgeon Adriano Delgado MD Museum Curator ROSALIO Reeves PA-C. No resident or fellow was available to assist. Estimated Blood Loss 200 Findings Consistent with Post-Op Diagnosis Specimens superficial and deep tissue Description of Procedure I was present during the entire procedure assisting with positioning, prepping, draping, wound retraction, wound closure, dressing and Prevena application. No fellow present. Please see Dr. Delgado procedure note for specifics. I attest to the content of the Intraoperative Record and any orders documented therein. Any exceptions are noted below.
[2022-08-03] MEDS ORDERED: ceFAZolin SPECIAL PROCEDURE STOCK 1 GM ADDVIAL IV SCH (12:30)
--- NOTE | 2022-08-03 12:51 | Anesthesiology Progress Note ---
Date of Service August 03, 2022 Anesthesia Post Procedure Vital Signs Vital Signs: Temp Pulse Resp BP Pulse Ox O2 Del Method O2 Flow Rate 08/03/22 12:50 67 14 123/68 95 Room Air 08/03/22 12:40 36.4 C L 67 15 104/76 98 Room Air 08/03/22 12:30 67 15 118/67 100 Room Air 08/03/22 12:20 75 22 116/69 100 Oxymask 08/03/22 12:13 36.6 C 85 21 119/71 100 Oxymask 08/03/22 06:42 36.9 C 73 20 148/72 H 98 Room Air Pain Intensity Left Hip: Pain Intensity: 3 Transfer of Care Handoff Completed per policy Notes Mental Status: alert / awake / arousable Patient Amnestic to Procedure: Yes Nausea / Vomiting: adequately controlled Pain: adequately controlled Airway Patency, RR, SpO2: stable & adequate BP & HR: stable & adequate Hydration State: stable & adequate Anesthetic Complications: no major complications apparent
[2022-08-03] MEDS: SODIUM CHLORIDE 0.9% 1000ML 1,000 ML IV SCH ×2 (13:37→22:52)
[2022-08-03] MEDS: KETOROLAC TROMETHAMINE 15 MG/ML VIAL IV SCH ×2 (14:02→21:47)
[2022-08-03] MEDS: oxyCODONE HCL IR 5 MG TAB (IMMEDIATE RELEASE) PO SCH ×3 (14:02→21:55)
[2022-08-03] MEDS: ACETAMINOPHEN 500 MG TAB PO SCH ×2 (14:03→21:48)
[2022-08-03] MEDS: rifAMPin 300 MG CAPSULE PO SCH (14:03)
--- NOTE | 2022-08-03 14:06 | XRay Report ---
XR pelvis 1-2V routine CLINICAL HISTORY: In PACU - Post Surgical. Postop left hip. COMPARISON STUDY: Pelvis 06/28/2022. FINDINGS: There is again noted a left total hip arthroplasty. The hardware appears intact. No acute f racture or dislocation within the pelvis or hips. Mild to moderate osteoarthritis within the right hi p. Interval placement of antibiotic cement beads within the left hip. IMPRESSION: Interval placement of antibiotic cement beads within the left hip. ACT 112: Negative or not required by law. Electronically signed by: Royal Garcia M.D. 08/03/2022 2:05 PM
[2022-08-03] MEDS: ceFAZolin 2000MG 2,000 MG/15 ML SYR IV SCH (17:46)
[2022-08-03] MEDS ORDERED: TRANEXAMIC ACID / 0.7% NACL 1,000 MG/100 ML BAG IV SCH (18:30)
[2022-08-03] MEDS ORDERED: ROSUVASTATIN CALCIUM 20 MG TAB PO SCH (21:00)
[2022-08-03] MEDS ORDERED: SENNA 8.6 MG TAB PO SCH (21:00)
[2022-08-03] MEDS: metFORMIN HCL 500 MG TAB PO SCH (21:49)
[2022-08-03] MEDS: ASPIRIN 81 MG CHEW PO SCH (21:55)
[2022-08-03] MEDS: DOCUSATE SODIUM 100 MG CAP PO SCH (21:55)
[2022-08-04] MEDS: oxyCODONE HCL IR 5 MG TAB (IMMEDIATE RELEASE) PO SCH ×4 (01:29→12:53)
[2022-08-04] MEDS: KETOROLAC TROMETHAMINE 15 MG/ML VIAL IV SCH ×2 (01:29→08:46)
[2022-08-04] MEDS: ceFAZolin 2000MG 2,000 MG/15 ML SYR IV SCH (01:30)
[2022-08-04] MEDS: rifAMPin 300 MG CAPSULE PO SCH ×2 (01:30→12:52)
[2022-08-04] MEDS: ACETAMINOPHEN 500 MG TAB PO SCH (05:40)
[2022-08-04] MEDS ORDERED: LEVOTHYROXINE SODIUM 25 MCG TABLET PO SCH (06:30)
[2022-08-04] MEDS: ASPIRIN 81 MG CHEW PO SCH (08:41)
[2022-08-04] MEDS: DOCUSATE SODIUM 100 MG CAP PO SCH (08:54)
[2022-08-04] MEDS: metFORMIN HCL 500 MG TAB PO SCH (08:54)
[2022-08-04] MEDS ORDERED: lisinopril 5 MG TAB PO SCH (09:00)
[2022-08-04] MEDS ORDERED: MULTIVITAMIN TAB PO SCH (09:00)
[2022-08-04] MEDS ORDERED: PANTOprazole 40 MG TAB PO SCH (09:00)
[2022-08-04] MEDS ORDERED: ASPIRIN 81 MG ECTAB PO SCH ×2 (09:00→21:00)
[2022-08-04] MEDS ORDERED: SITagliptin PHOSPHATE 25 MG TAB PO SCH (09:00)
[2022-08-04 09:32] LABS: Basophils # (auto) 0.03 K/uL (0-0.2); Basophils % (auto) 0.3 %; Eosinophils # (auto) 0.37 K/uL (0-0.50); Eosinophils % (auto) 3.8 %; Hematocrit (blood only) 24.8 % (40.1-51.0); Hemoglobin 8.3 g/dl (14.0-18.0); Immature Granulocytes # (auto) 0.17 K/uL (0.00-0.02); Immature Granulocytes % (auto) 1.7 %; Lymphocytes # (auto) 0.59 K/uL (1.2-3.4); Mean Corpuscular Hemoglobin 28.9 pg (25.0-34.0); Mean Corpuscular Hgb Conc 33.5 g/dL (32.0-36.0); Mean Corpuscular Volume 86.4 fL (80.0-100.0); Mean Platelet Volume 9.5 fL (9.4-12.4); Monocytes # (auto) 0.86 K/uL (0.24-0.82); Monocytes % (auto) 8.7 %; Neutrophils # (auto) 7.84 K/uL (1.4-6.5); Neutrophils % (auto) 79.5 %; Platelet Count 275 K/uL (130-400); RDW Coefficient of Variation 13.8 % (11.5-14.5); RDW Standard Deviation 43.4 fL (36.4-46.3); Red Blood Count 2.87 M/uL (4.63-6.08); White Blood Count 9.86 K/ul (4.8-10.8)
[2022-08-04 09:59] LABS: BUN Creatinine Ratio 22.2 (10-20); Calcium 8.4 mg/dl (8.5-10.1); Creatinine Clr Calc Pharmacy 72.9 ml/min; Est GFR (African American) 88.4 ml/min; Est GFR (Non-African American) 76.3 ml/min; Potassium 4.3 mmol/L (3.5-5.1)
[2022-08-04] MEDS ORDERED: ceFAZolin 2000MG 2,000 MG/15 ML SYR IV SCH (11:00)
--- NOTE | 2022-08-04 12:38 | Orthopedic Progress Note ---
Date of Service August 04, 2022 Assessment & Plan (1) Status post revision of total hip replacement: Plan: December WBAT LLE Prevena dressing in place. Functioning PT/OT evaluated, cleared for discharge to go home Tolerating regular diet Mild nausea - given Zofran. Case management for disposition needs. arranged. PIcc in place, has IV antibiotics Pain medication sent to pharmacy, also added zofran. Follow up as outpatient as scheduled. D/C instructions reviewed. Admission and Anticipated Discharge Date Admission Date: August 03, 2022 Subjective Patient sitting in bed, doing well. No complaints of pain left hip. Dressings/Prevena functioning. Mild nausea. Pain controlled with oral medication. Denies vomiting, chest pain, shortness of breath. Physical Exam Musculoskeletal: Left hip dressing clean, dry and intact. Prevena in place. Mild thigh edema. No distal edema. No calf tenderness, no pain with palpation. Distal N/V intact. Results & Data ([facility]) Vital Signs (Past 12 Hours) Vital Signs Temp Pulse Resp BP Pulse Ox O2 Del Method 08/04/22 06:34 37.0 C 88 18 122/64 96 Room Air Laboratory Results 08/04/22 08/04/22 08/04/22 Range/Units 11:48 08:50 08:50 WBC (4.8-10.8) K/ul RBC (4.63-6.08) M/uL Hgb (14.0-18.0) g/dl Hct (40.1-51.0) % MCV (80.0-100.0) fL MCH (25.0-34.0) pg MCHC (32.0-36.0) g/dL RDW Std Deviation (36.4-46.3) fL RDW Coeff of Lauren (11.5-14.5) % Plt Count (130-400) K/uL MPV (9.4-12.4) fL Immature Gran % (Auto) % Neut % (Auto) % Lymph % (Auto) % [place] % (Auto) % Eos % (Auto) % Baso % (Auto) % Neut # (Auto) (1.4-6.5) K/uL Lymph # (Auto) (1.2-3.4) K/uL [place] # (Auto) (0.24-0.82) K/uL Eos # (Auto) (0-0.50) K/uL Baso # (Auto) (0-0.2) K/uL Immature Gran # (Auto) (0.00-0.02) K/uL Sodium 134 L (136-145) mmol/L Potassium 4.3 (3.5-5.1) mmol/L Chloride 102 (98-107) mmol/L Carbon Dioxide 26 (21-32) mmol/L Anion Gap 6 (3-11) BUN 22 (6-23) mg/dl Creatinine 0.99 (0.6-1.4) mg/dl Est Cr Clr Drug Dosing 72.9 ml/min Est GFR ( Amer) 88.4 ml/min Est GFR (Non-Af Amer) 76.3 ml/min BUN/Creatinine Ratio 22.2 H (10-20) Glucose 208 H (70-99(Fasting)) mg/dl POC Glucose 227 H (70-99) mg/dl Calcium 8.4 L (8.5-10.1) mg/dl Hepatitis C Ab (EIA) Pending Hep C Ab Signal/Cutoff Pending 08/04/22 08/03/22 Range/Units 08:50 13:50 WBC 9.86 (4.8-10.8) K/ul RBC 2.87 L (4.63-6.08) M/uL Hgb 8.3 L (14.0-18.0) g/dl Hct 24.8 L (40.1-51.0) % MCV 86.4 (80.0-100.0) fL MCH 28.9 (25.0-34.0) pg MCHC 33.5 (32.0-36.0) g/dL RDW Std Deviation 43.4 (36.4-46.3) fL RDW Coeff of Lauren 13.8 (11.5-14.5) % Plt Count 275 (130-400) K/uL MPV 9.5 (9.4-12.4) fL Immature Gran % (Auto) 1.7 % Neut % (Auto) 79.5 % Lymph % (Auto) 6.0 % [place] % (Auto) 8.7 % Eos % (Auto) 3.8 % Baso % (Auto) 0.3 % Neut # (Auto) 7.84 H (1.4-6.5) K/uL Lymph # (Auto) 0.59 L (1.2-3.4) K/uL [place] # (Auto) 0.86 H (0.24-0.82) K/uL Eos # (Auto) 0.37 (0-0.50) K/uL Baso # (Auto) 0.03 (0-0.2) K/uL Immature Gran # (Auto) 0.17 H (0.00-0.02) K/uL Sodium (136-145) mmol/L Potassium (3.5-5.1) mmol/L Chloride (98-107) mmol/L Carbon Dioxide (21-32) mmol/L Anion Gap (3-11) BUN (6-23) mg/dl Creatinine (0.6-1.4) mg/dl Est Cr Clr Drug Dosing ml/min Est GFR ( Amer) ml/min Est GFR (Non-Af Amer) ml/min BUN/Creatinine Ratio (10-20) Glucose (70-99(Fasting)) mg/dl POC Glucose 158 H (70-99) mg/dl Calcium (8.5-10.1) mg/dl Hepatitis C Ab (EIA) Hep C Ab Signal/Cutoff
--- NOTE | 2022-08-04 12:51 | Discharge Summary ---
Date of Service August 04, 2022 Admission HPI Per Admitting Provider History of Present Illness (including history relevant to procedure): This 71-year-old male presents to clinic today with his family for his preoperative history and physical. This will be the second time that we have done irrigation and debridement following his initial total hip arthroplasty surgery performed back on June 03. Patient states that he has been getting infusions of Ancef through his PICC line and has been taking oral rifampin since the last procedure. He states that he still continues to have some drainage from the distalmost aspect of the incision site. He states his changes the dressing daily. He describes the discharge as a clear bloody fluid. His son who is a nurse tried to express fluid but only gets a small amount. However, he states that the area is fluctuant and a darker red color than the remaining incision site. Patient denies fever, chills, sweats, nausea, vomiting or any pain. He is able to walk with the assistance of his cane without issue. Review Of Systems: A 12 point review of systems is performed and is unremarkable except for those things stated in the HPI past medical history. Past Medical History: Problems: Left hip postoperative wound infection Preop examination S/P revision of total hip Hematoma of left hip Disorder of thyroid Dry skin Loss of hearing Arthritis Irregular heart beat Cancer Type 2 diabetes mellitus Hypertension Procedure History Procedure Procedure Date Comments Shoulder joint operations Unknown Allergies and Sensitivities: NKA Current Home Meds: (Last Updated 08/01 11:28) SITagliptin (Januvia 50 mg oral tablet) TAKE 1 TABLET BY MOUTH ONCE DAILY aspirin (aspirin 81 mg oral capsule) BID ceFAZolin (ceFAZolin 1 g injection) 1 g IM q8h levothyroxine (Euthyrox 25 mcg (0.025 mg) oral tablet) TAKE 1 TABLET BY MOUTH ONCE DAILY ON AN EMPTY STOMACH metFORMIN (MetFORMIN (Eqv-Glucophage XR) 500 mg oral tablet, extended release) TAKE 4 TABLETS BY MOUTH ONCE DAILY omeprazole (omeprazole 40 mg oral delayed release capsule) 40 mg PO Daily rifAMPin (rifAMPin 300 mg oral capsule) TAKE 1 CAPSULE BY MOUTH EVERY 12 HOURS rosuvastatin (rosuvastatin 20 mg oral tablet) 20 mg PO Daily Pt was seen and examined bedside POD #1 s/p left total hip revision arthroplasty by Dr Delgado. Pt was admitted last night for observation. No major events over night. Vitals are stable. Labs unremarkable. X-rays show normal post operative changed. Pt reports they are doing well and pain is controlled. They are tolerating PO intake and voiding adequate amounts. Working well with PT/OT. PICC in place. Pt denies F/C, N/V/D, SOB, CP. Pt deemed medically stable and ready for discharge. 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 Incisions clean, dry and with minimal drainage and no surrounding erythema, warmth or purulent drainage. Pt has full ROM of ankle and all 5 digits. Pt has 4/5 strength with resisted DF/PF. Calf supple and non tender. NVI with sensation to light touch distally and good distal pulses present. Lower extremity noted to have good color and temperature with no signs of vascular or lymphatic insufficiency. Discharge Data Allergies Allergy/AdvReac Type Severity Reaction Status Date / Time adhesive tape Allergy Intermediate Blister Verified 08/03/22 06:51 atorvastatin [From Lipitor] AdvReac Intermediate Muscle Pain Verified 08/03/22 06:51 Procedures Performed Operation Date: 08/03/22 09:00 Actual Procedures p Left Total Hip Arthroplasty with Polyethylene and Femoral Head Exchange(Left) - Adriano Delgado MD s Irrigation and Debridement(Left) - Adriano Delgado MD Hospital Course (1) Status post revision of total hip replacement: December WBAT LLE Prevena dressing in place. Functioning PT/OT evaluated, cleared for discharge to go home Tolerating regular diet Mild nausea - given Zofran. Case management for disposition needs. arranged. PIcc in place, has IV antibiotics Pain medication sent to pharmacy, also added zofran. Follow up as outpatient as scheduled. D/C instructions reviewed. Total Time Total Time Spent Total Time Spent (In Minutes): 45 minutes Discharge Plan Discharge Items Patient Disposition: Home - Home Health Services Reason For Visit: Infection and Inflammatory Reaction Due to Interna Discharge Diagnosis: Infection / inflammation reaction to orthopedic prosthesis Activity: As commented below Lifting: None Bathing: Keep incision dry Bathing Comment: may shower tomorrow Sexual Activity: Wait until after follow-up appointment Exercise/Sports: Wait until after follow-up appointment Weightbearing Comment: as tolerated with walker assistance Non-emergency contact: Surgeon Call non-emergency contact if: you have any medication questions, your pain is not controlled, your temperature is above 101.5, your wound has increased drainage and your wound pain has increased Follow-up/Referrals: Haja Reeves PA-C [Physician Veneer Department Manager] - 08/16/22 9:45 am Lance May DO [Primary Care Provider] - Adriano Delgado MD [Physician] - 08/10/22 3:00 pm Diet: Carb Consistent or DM2 Addtl Attending Provider Instructions: Post-operative Instructions Dear Patient and Family/Friends, Before you are discharged from the hospital, it is important to know what to expect when you get home after surgery. To that end, we have created this sheet of discharge instructions which covers many commonly asked questions. Make sure you go through this sheet in its entirety with your nurse before you are discharged. Please note that we will go over the specifics of your surgery and recovery when you return for your first post-operative visit. Sincerely, Dr. Delgado Medications 1. Oxycodone 5 mg: take 1-2 tabs every 4-6 hours as needed for pain. A prescription will be sent to your pharmacy. 2. Diclofenac Sodium 75 mg: take 1 tab twice daily for 30 days post operatively for pain and inflammation relief. This will also be sent to your pharmacy with 1 refill. 3. Aspirin 81 mg: take 1 tab twice daily for 30 days post operatively for blood clot prevention. Please purchase. 4. Extra Strength Tylenol 500 mg: take 2 tabs every 6-8 hours as needed for additional pain relief. Please purchase. 5. Continue the IV Ancef through your Picc line and the oral Rifampin per Dr. Gomez's instructions. Pain Expect to be in a fair amount of pain after surgery. Remember, our goal is not to eliminate your pain, but to make it tolerable. It is a good idea to stay ahead of your pain by taking the medications you were prescribed once you get home. Typically, the pain starts improving 3-7 days after surgery. You should start weaning off the narcotic pain medication (oxycodone, hydrocodone, hydromorphone, morphine) as soon as your pain improves. Please call our office if your pain is not adequately controlled. Ice Ice your operative site at least 5 times a day for 15-30 minutes at a time. Make sure you have a thin cloth between the ice or cooling unit and your skin to prevent fox bite. This is especially important if you received a nerve block. Continue icing your operative site for the first 5-7 days after surgery, then as needed. Diet/Nausea/Vomiting Start by drinking clear liquids and eating crackers. If you can tolerate this, then you may resume your normal diet. If you feel nauseated or vomit, take Zofran/ondansetron (if prescribed). Please call our office if you have intractable nausea or vomiting, or, if after hours, you may go to the Emergency Room for help. Constipation Constipation is a common side effect of narcotic pain medication. If you have not had a bowel movement within 2 days after surgery, we recommend purchasing an over the counter laxative such as Milk of Magnesia, Dulcolax, or Miralax from a local pharmacy, and taking it as instructed. Call our clinic if any questions. Nerve block The anesthesia team sometimes places a nerve block to help with post-operative pain control. This results in significant numbness and inability to move the extremity. The nerve block usually wears off in 8-12 hours, but sometimes can last up to 24 hours. Please call our office if you are still unable to move your extremity after 24 hours, unless you received a pain pump to take home. Nerve blocks typically wear off quickly, so start taking pain medication as soon as you start feeling soreness near your surgical site. Weight bearing and Range of Motion. Do not bear any weight through your operative extremity immediately after surgery. If you had upper extremity surgery, do not lift anything with that arm. If you are in a knee brace, keep it locked in place until your follow-up. We will discuss your weight bearing, range of motion, and lifting restrictions in detail at your first post-operative appointment. Continuous Passive Motion (CPM) Machine If you were prescribed a CPM machine, it will start after your first post- operative appointment, at which time we will give you instructions on the range of motion settings and duration of treatment Physical therapy You will be given a prescription for physical therapy or occupational therapy at your first post-operative appointment. Typically, patients start therapy within 1 week of surgery Wound care and showering We will inspect your wound at your first post-operative visit, and may do a dressing change at that time. Most patients will be in a water-proof dressing that is removed 14 days after surgery. It is normal to see some dried blood on the dressing. Do not remove your dressing, paper strips or sutures yourself unless you are given permission. Showering is allowed the day after surgery. Do not scrub or remove any dressings. The wound should not be submerged underwater (i.e. in a bathtub or pool) until 4 weeks after surgery JONAH stockings If you were given white stockings, these are to be worn at all times except to shower (on both legs) for the first 2 weeks after surgery. Driving You may not drive while taking narcotic pain medication or while in a cast, splint, sling or brace. You, the patient, need to make the final determination about when you are safe to drive, however, the earliest you may consider driving after surgery is below: Hand/Wrist/Elbow Surgery: 3 days Shoulder Surgery: 2 weeks Hip,/Knee/Ankle Surgery: 4 weeks Fracture repair: 6 weeks Return to Work Your return to work depends on what surgery was done and what type of work you do. Please bring any paperwork your employer needs completed to your first post-operative visit. Also, bring a description of your job duties, as this helps us to understand what risks you may face at work. Travel Avoid long distance travel (greater than 1 hour) in airplanes and cars for the first 6 weeks after surgery. If you must travel, you need to have a Doppler ultrasound done before you travel to rule out a blood clot in your legs. Follow-up You have a follow up appointment at our clinic with Zo Lrod PA-C next 08/10/22 @ 3 PM to have the wound vac removed from your hip. When to call the office It is normal to have swelling and bruising in the limb that was operated on. This will improve with time. It is also normal to have fevers for the first 2 days after surgery. Reasons you should call your doctor include: Uncontrolled pain; Nausea, vomiting, or constipation that does not improve with medication; Fevers over 101.5, chills, sweats; Drainage or bleeding from the wound; Foul odor; Spreading areas of redness; Any other concerns Pending Studies at Discharge: No Stand-Alone Forms: My [facility] Medications and DC Order Prescriptions: New diclofenac sodium 75 mg tablet,delayed release (DR/EC) 75 mg PO BID 30 Days Qty: 60 0RF ondansetron 4 mg tablet,disintegrating 4 mg PO Q6H PRN (Reason: nausea and vomiting) Qty: 10 0RF Continued metformin 500 mg Tablet 1,000 mg PO BID omeprazole 40 mg Capsule,Delayed Release(Dr/Ec) 40 mg PO QAM levothyroxine [Euthyrox] 25 mcg Tablet 25 mcg PO QAM lisinopril [Zestril] 5 mg Tablet 5 mg PO QAM Label Comments: has not been taking this since last sx. rosuvastatin [Crestor] 20 mg Tablet 20 mg PO HS Januvia 50 mg Tablet 50 mg PO QAM oxycodone 5 mg tablet 5 mg PO Q4H MDD Ongoing therapy Qty: 28 0RF Label Comments: has never taken any of these. cefazolin 1 gram recon soln 2 g IV Q8H Qty: 25 0RF rifampin 300 mg capsule 300 mg PO Q12H Qty: 60 2RF aspirin 81 mg Tablet,Chewable 81 mg PO BID Discharge Orders: Discharge Order (Routine); Ordered 08/04/22 Ordered By: Antonina Ramires Admission Data Admit Date/Time: 08/03/22 12:21 Attending Provider: Adriano Delgado Admit Provider: Adriano Delgado Primary Care Provider: Lance May Other Providers: [facility],Home Healthcare
== END 2022-08-04 13:46 | disposition home health service (06) ==
LOC: ASU 06:20 → 3E 06:20
PROC: M.IDHIP (2022-08-03 09:00)
DX: Z20.822 Contact with and (suspected) exposure to COVID-19; Z91.048 Other nonmedicinal substance allergy status; Z79.82 Long term (current) use of aspirin; Z79.899 Other long term (current) drug therapy; T84.52XA Infection and inflammatory reaction due to internal left hip prosthesis, initial encounter; Z79.84 Long term (current) use of oral hypoglycemic drugs; Y83.1 Surgical operation with implant of artificial internal device as the cause of abnormal reaction of the patient, or of later complication, without mention of misadventure at the time of the procedure; Z79.890 Hormone replacement therapy; Z88.8 Allergy status to other drugs, medicaments and biological substances